=== PATIENT | male | born 1955 | race Caucasian/White ===

== ENCOUNTER → 2018-03-19 17:36 | Outpatient (CLI) | payer MEDICARE | END | disposition home or self-care (01) | LOC: D.LABREF 17:36 | DX: M17.12 Unilateral primary osteoarthritis, left knee (principal); Z11.8 Encounter for screening for other infectious and parasitic diseases ==

== ENCOUNTER 2018-04-02 10:00 | Inpatient (IN) | payer MEDICARE ==
[~2018-04-02] VITALS: Ht 188 cm; Wt 104.3 kg
[2018-04-02] MEDS ORDERED: BENZTROPINE MESY1 MG PO (10:55)
[2018-04-02] MEDS ORDERED: CLOZARIL100 MG PO (10:56)
[2018-04-02] MEDS ORDERED: HYDROCHLOROTH12.5 M1 PO (10:57)
[2018-04-02] MEDS ORDERED: IPRAT-ALBUT 0.5-3 ML UPD (10:57)
[2018-04-02] MEDS ORDERED: FERROUS SULFAT325 MG PO (10:57)
[2018-04-02] MEDS ORDERED: GLUCOPHAGE500 MG PO (10:58)
[2018-04-02] MEDS ORDERED: VYVANSE20 MG PO (10:58)
[2018-04-02] MEDS ORDERED: NEXIUM40 MG (10:58)
[2018-04-02] MEDS ORDERED: ALBUTEROL (11:01)
[2018-04-02] MEDS ORDERED: VOLTAREN75 MG PO (11:01)
[2018-04-02] MEDS ORDERED: ZOCOR40 MG PO (11:02)
[2018-04-02] MEDS ORDERED: BREO ELLIPTA 21 EACH (11:02)
[2018-04-02 11:52] LABS: BASOPHILS 0.2 % (0-2); EOSINOPHILS 0 % (0-7); HEMATOCRIT 46.7 % (42.0-54.0); HEMOGLOBIN 16.1 g/dL (13.5-17.5); IMMATURE GRANULOCYTES 0.1 % (0-5); LYMPHOCYTES 20.3 % (15-50); MCH 30.6 pg (26.0-34.0); MCHC 34.5 g/dL (31.0-37.0); MCV 88.8 fL (80.0-100.0); MEAN PLATELET VOLUME 11.2 fL (7.4-10.4); MONOCYTES 8.8 % (2-11); NEUTROPHILS 70.6 % (40-80); PLATELET COUNT 154 10x3/uL (130-400); RBC 5.26 10x6/uL (4.20-6.10); RDW 13.8 % (11.5-14.5)
[2018-04-02 12:01] LABS: CALC OSMOLALITY 283 mosm/kg (275-300); CALCIUM 9.9 mg/dL (8.5-10.1); CARBON DIOXIDE 27.7 mmol/L (21.0-32.0); CHLORIDE - SERUM 105 mmol/L (98-107); CREATININE - SERUM 0.9 mg/dL (0.6-1.3); GLUCOSE 98 mg/dL (74-106); POTASSIUM - SERUM 4.2 mmol/L (3.5-5.1); SODIUM 142 mmol/L (136-145); UREA NITROGEN 16 mg/dL (7-18); eGFR NON AFRICAN AMERICAN > 90 mL/min (90-120)
[2018-04-02 12:04] LABS: APTT 31.4 SECONDS (22.8-39.4); PROTIME 12.7 SECONDS (11.6-15.0)
[2018-04-02 12:33] LABS: APPEARANCE CLEAR (CLEAR); BILIRUBIN NEGATIVE (NEGATIVE); COLOR YELLOW (YELLOW); GLUCOSE NEGATIVE (NEGATIVE); KETONE NEGATIVE (NEGATIVE); NITRITE NEGATIVE (NEGATIVE); PROTEIN NEGATIVE (NEGATIVE); SPECIFIC GRAVITY 1.005 (1.005-1.020); UROBILINOGEN NORMAL (NORMAL)
[2018-04-07 07:27] VITALS: BP 137/77; BMI 29.7
[2018-04-07 14:13] VITALS: BP 124/79
[2018-04-07 14:32] VITALS: BP 124/79
[2018-04-07 15:39] VITALS: BMI 29.5
[2018-04-07 20:53] VITALS: BP 114/71
[2018-04-07 21:43] VITALS: BP 114/71
[2018-04-08] VITALS (7 sets, daily range): BP systolic 102–133; BP diastolic 55–81
[2018-04-08 06:14] LABS: HEMATOCRIT 39.7 % (42.0-54.0); HEMOGLOBIN 13.5 g/dL (13.5-17.5); MCH 30.3 pg (26.0-34.0); MCV 89.2 fL (80.0-100.0); MEAN PLATELET VOLUME 11.3 fL (7.4-10.4); RBC 4.45 10x6/uL (4.20-6.10); RDW 13.5 % (11.5-14.5); WBC 10.6 10x3/uL (4.8-10.8)
[2018-04-09 04:00] VITALS: BP 123/82
[2018-04-09 04:56] LABS: HEMATOCRIT 37.8 % (42.0-54.0); HEMOGLOBIN 13.1 g/dL (13.5-17.5); MCH 30.5 pg (26.0-34.0); MCHC 34.7 g/dL (31.0-37.0); MCV 87.9 fL (80.0-100.0); MEAN PLATELET VOLUME 11.2 fL (7.4-10.4); RBC 4.3 10x6/uL (4.20-6.10); RDW 13.3 % (11.5-14.5); WBC 13.6 10x3/uL (4.8-10.8)
--- NOTE | 2018-04-09 11:07 | MORECARE ---
CASE MANAGEMENT DISCHARGE SUMMARY PATIENT: AYALA GREENBERG UNIT: [id number] ADM DATE: 04/07/18 AGE: 63 : 55 SEX: M ROOM/BED: D.2212 AUTHOR: SAMM TILLMAN PHYSICIAN: REFERRING PHYSICIAN: PARAS CROOK MD DATE OF SERVICE: 04/09/18 Discharge Plan Patient Name: AYALA GREENBERG [facility] : 1955 Planned Disposition: Inpatient Rehab Anticipated Discharge Date: 04/10/18 Discharge Date: Expected LOS: 3 Initial Reviewer: [email or web address] Initial Review Date: 04/09/2018 Generated: 04/09/18 12:07 pm Patient Name: AYALA GREENBERG Page 33795 at 1107 All edits/amendments must be made on the electronic document DICTATION DATE: 04/09/186 KOSHER DIETARY SERVICE SUPERVISOR: PAIGE 04/09/18 1106 RPT#: [id number] DC DATE: STATUS: ADM IN [facility] [address] [place] [address] END OF REPORT
--- NOTE | 2018-04-09 11:14 | MORECARE ---
CASE MANAGEMENT DISCHARGE SUMMARY PATIENT: AYALA GREENBERG UNIT: [id number] ADM DATE: 04/07/18 AGE: 63 : 55 SEX: M ROOM/BED: D.2212 AUTHOR: PRIMO,DOC PHYSICIAN: REFERRING PHYSICIAN: PARAS CROOK MD DATE OF SERVICE: 04/09/18 Discharge Plan Patient Name: AYALA GREENBERG Facility: [facility]:[place] : 1955 Planned Disposition: Inpatient Rehab Anticipated Discharge Date: 04/10/18 Discharge Date: Expected LOS: 3 Initial Reviewer: [email or web address] Initial Review Date: 04/09/2018 Generated: 04/09/18 12:14 pm Comments DCP- Discharge Planning Updated by [email or web address]: Misa Flores on 04/09/18 10:[address] Patient Name: AYALA GREENBERG Admission Status: Elective Accout number: [id number] Admission Date: 04-07-2018 : 1955 Admission Diagnosis: Attending: PARAS CROOK Current LOS: 2 Anticipated DC Date: 04-10-2018 Planned Disposition: Inpatient Rehab Primary Insurance: MEDICARE A & B Discharge Planning Comments: CM met with patient to discuss discharge planning, he is alone in the room. States he lives at [facility]. States I can call Ira (the nurse) there for more information. Agrees to inpatient rehab down stairs prior to going back to [facility]. I called Ira Thomas at [phone] and left a message on her answering machine to return my call concerning discharge planning. I called Adelita in inpatient rehab and they will review his chart for admission. CM will continue to follow and assist with discharge planning/needs. Sewing Machine Operator Floorperson: Misa Flores DCPIA - Discharge Planning Initial Assessment Updated by [email or web address]: Misa Flores on 04/09/18 11:08 am * Is the patient Alert and Oriented? Yes * How many steps to enter\exit or inside your home? 0/0 * PCP Dr. Caraballo * Pharmacy [facility] in [place] * Preadmission Environment Penitentiary * Facility Name [facility] * ADLs Partial Dependent * Partial ADLs (Assistance needed) Ambulation * Equipment Cane Walker * List name and contact numbers for known caregivers / representatives who currently or will assist patient after discharge: Ira Thomas - nurse at [facility] - [phone] * Verbal permission to speak to the caregivers and representatives has been obtained from the patient. Yes * Community resources currently utilized None * Please name any agencies selected above. [facility] * Additional services required to return to the preadmission environment? Yes * Can the patient safely return to the preadmission environment? Yes * Has this patient been hospitalized within the prior 30 days at any hospital? No Last DP export: 04/09/18 10:07 am Patient Name: AYALA GREENBERG Page 21281 at 1114 All edits/amendments must be made on the electronic document DICTATION DATE: 04/09/181113 AIRPORT MAINTENANCE CHIEF: PAIGE 04/09/181113 RPT#: [id number] DC DATE: STATUS: ADM IN [facility] [address] [place] [address] END OF REPORT
--- NOTE | 2018-04-09 11:51 | MORECARE ---
CASE MANAGEMENT DISCHARGE SUMMARY PATIENT: AYALA GREENBERG UNIT: [id number] ADM DATE: 04/07/18 AGE: 63 : 55 SEX: M ROOM/BED: D.2212 AUTHOR: PRIMO,DOC PHYSICIAN: REFERRING PHYSICIAN: PARAS CROOK MD DATE OF SERVICE: 04/09/18 Discharge Plan Patient Name: AYALA GREENBERG Facility: [facility]:[place] : 1955 Planned Disposition: Inpatient Rehab Anticipated Discharge Date: 04/10/18 Discharge Date: Expected LOS: 3 Initial Reviewer: [email or web address] Initial Review Date: 04/09/2018 Generated: 04/09/18 12:51 pm Comments DCP- Discharge Planning Updated by [email or web address]: Misa Flores on 04/09/18 10:[address] Ira Thomas returned my call from [facility]. She states he lives with 14 other males in a senior care on [facility]. States there are not any medical assistants in the home. States he has a cane, no walker at home. States they use [employer] for their preferred DME company. She would like him to go to inpatient rehab prior to returning to [facility]. Spoke with Adelita and they will follow with his progress. Ira Thomas - cell phone: [phone] DCP- Discharge Planning Updated by [email or web address]: Misa Flores on 04/09/18 10:[address] Patient Name: AYALA GREENBERG Admission Status: Elective Accout number: [id number] Admission Date: 04-07-2018 : 1955 Admission Diagnosis: Attending: PARAS CROOK Current LOS: 2 Anticipated DC Date: 04-10-2018 Planned Disposition: Inpatient Rehab Primary Insurance: MEDICARE A & B Discharge Planning Comments: CM met with patient to discuss discharge planning, he is alone in the room. States he lives at [facility]. States I can call Ira (the nurse) there for more information. Agrees to inpatient rehab down stairs prior to going back to [facility]. I called Ira Thomas at [phone] and left a message on her answering machine to return my call concerning discharge planning. I called Adelita in inpatient rehab and they will review his chart for admission. CM will continue to follow and assist with discharge planning/needs. Training Consultant: Misa Flores DCPIA - Discharge Planning Initial Assessment Updated by [email or web address]: Misa Sandra on 04/09/18 11:08 am * Is the patient Alert and Oriented? Yes * How many steps to enter\exit or inside your home? 0/0 * PCP Dr. Caraballo * Pharmacy [facility] in [place] * Preadmission Environment Care Home * Facility Name [facility] * ADLs Partial Dependent * Partial ADLs (Assistance needed) Ambulation * Equipment Cane Walker * List name and contact numbers for known caregivers / representatives who currently or will assist patient after discharge: Ira Thomas - nurse at [facility] - [phone] * Verbal permission to speak to the caregivers and representatives has been obtained from the patient. Yes * Community resources currently utilized None * Please name any agencies selected above. [facility] * Additional services required to return to the preadmission environment? Yes * Can the patient safely return to the preadmission environment? Yes * Has this patient been hospitalized within the prior 30 days at any hospital? No Last DP export: 04/09/18 10:14 am Patient Name: AYALA GREENBERG Page 13148 at 1151 All edits/amendments must be made on the electronic document DICTATION DATE: 04/09/18 115 FUSING MACHINE TENDER: PAIGE 04/09/18 1150 RPT#: [id number] SC DATE: STATUS: ADM IN [facility] [address] [place] [address] END OF REPORT
[2018-04-09 14:30] VITALS: Ht 188 cm; Wt 104.3 kg
[2018-04-09 15:15] VITALS: BP 129/79
[2018-04-09 16:41] VITALS: BP 132/83
[2018-04-09 20:00] VITALS: BP 127/79
[2018-04-09 23:47] VITALS: BP 128/73
[2018-04-10 04:00] VITALS: BP 134/85
[2018-04-10 08:36] LABS: HEMATOCRIT 31.6 % (42.0-54.0); HEMOGLOBIN 10.8 g/dL (13.5-17.5); MCH 30.1 pg (26.0-34.0); MCHC 34.2 g/dL (31.0-37.0); MEAN PLATELET VOLUME 10.8 fL (7.4-10.4); RBC 3.59 10x6/uL (4.20-6.10); RDW 13.1 % (11.5-14.5); WBC 11.1 10x3/uL (4.8-10.8)
[2018-04-10 08:37] VITALS: BP 150/85
[2018-04-10 08:38] LABS: CALC OSMOLALITY 284 mosm/kg (275-300); CALCIUM 8.8 mg/dL (8.5-10.1); CARBON DIOXIDE 29.4 mmol/L (21.0-32.0); CHLORIDE - SERUM 103 mmol/L (98-107); CREATININE - SERUM 0.9 mg/dL (0.6-1.3); GLUCOSE 137 mg/dL (74-106); POTASSIUM - SERUM 3.1 mmol/L (3.5-5.1); SODIUM 140 mmol/L (136-145); UREA NITROGEN 24 mg/dL (7-18); eGFR NON AFRICAN AMERICAN > 90 mL/min (90-120)
[2018-04-10 12:26] VITALS: BP 150/92
[2018-04-10 17:21] VITALS: BP 147/89
[2018-04-10 20:00] VITALS: BP 148/91
[2018-04-11 04:00] VITALS: BP 132/81
[2018-04-11 08:00] VITALS: BP 135/79
[2018-04-11 12:00] VITALS: BP 149/86
[2018-04-11 16:12] VITALS: BP 159/98
[2018-04-11 19:00] VITALS: BP 156/90
[2018-04-12 00:46] VITALS: BP 156/93
[2018-04-12 05:24] VITALS: BP 165/88
[2018-04-12 09:53] VITALS: BP 160/98
[2018-04-12 16:00] VITALS: BP 150/91
[2018-04-12 20:42] VITALS: BP 147/90
[2018-04-13 04:32] VITALS: BP 157/83
[2018-04-13 08:48] VITALS: BP 152/796
--- NOTE | 2018-04-13 13:33 | OP ---
PATIENT NAME: AYALA GREENBERG MEDICAL RECORD: [id number] :55 LOCATION:D.MS [id number] ADMISSION DATE:04/07/18 SURGEON: PARAS CROOK MD DATE OF OPERATION: 04/07/2018 PREOPERATIVE DIAGNOSIS: Severe varus arthritis of the left knee. POSTOPERATIVE DIAGNOSIS: Severe varus arthritis of the left knee. PROCEDURE: Left total knee arthroplasty. SURGEON: Paras Crook MD MERCHANDISE ADJUSTMENT CLERK: Ryan Menezes APN. INTRAOPERATIVE COMPLICATIONS: None. SUMMARY OF PATHOLOGIC FINDINGS: The patient had such severe medial tibial plateau erosion, it required a step cut with a total stabilizing implant for stability. IMPLANTS USED: Alicia triathlon total knee arthroplasty with a posterior cruciate sacrificing femoral component, size 5; polyethylene component, size 11 with a TS insert rather than the usual PS insert; tibial baseplate with a 10-mm medial augmentation wedge and 50 mm cemented stem on the universal system. OPERATIVE SUMMARY IN DETAIL: After obtaining the appropriate preoperative orthopedic surgery consent as well as anesthetic consultation, evaluation, and clearance, the patient was brought to the operating room and placed on the operating table in supine position. After adequate general laryngeal mask airway was administered, tourniquet was placed on the proximal aspect of left lower extremity. After the knee was prepped and draped in routine sterile fashion, the leg was elevated and exsanguinated, tourniquet was inflated to 350 mmHg. Routine midline incision was taken down to the level of the patella. Paramedian arthrotomy was performed, patella was everted, distal femur was exposed. After distal femoral exposure and the usual osteophyte removal were used, findings of the severe medial tibial plateau erosion were noted. Intramedullary guide hole was created for intramedullary guided cuts for the proximal femur. The proximal femur and distal femoral cuts were created. At this point, the proximal tibia was exposed in its entirety. Soft tissue excision was done in the usual fashion followed by intramedullary guide hole. The intramedullary guide hole was used to cut the proximal tibia. Essentially, the erosion of the medial aspect was ignored and the tibial cut was more proximal than the erosion, obviously needing for a step cut for augmentation. This was not done at this time. The appropriate chamfer cuts for the distal femur were then followed by cutting of the box for the posterior cruciate sacrificing implant. At this point, trials were put into place. Again before the step cut was made, trials were put into place. Soft tissue releases were done on the medial side as the gap obstetrics gyn was used. The gap obstetrics gyn did help guide soft tissue release in this patient with very severe varus deformity. Once it was felt that the appropriate releases had been made and the trials were put into place, the tibia was marked at the appropriate place and likewise prepared for final implantation. Having completed this, the cutting guide was put into place and a 10-mm step cut was made on the medial aspect of the tibia. Again, the trials were taken through range of motion. Final trials were then OPERATIVE REPORT [id number] AYALA GREENBERG assembled that being the 50-mm stem augment as well as the 10-mm augment on the medial aspect of the tibial plateau. It did appeared to be balanced with the 11-mm insert put into place. It was ranged several times from both flexion and extension and found to be very stable. At this point, the trial components were taken out and the very arthritic patella was excised. The patient had a very large patella after osteophytes were taken down. A size 39 was utilized. Final patellar preparations were then made. This was followed by substantial irrigation using the pulsatile lavage. The final components were assembled on the back table and then cemented into place with good fit, fill, and all residual cement was removed. At this point, the knee was put into extension and held with a valgus load to allow good fixation of the medial aspect. Once the cement had hardened, the knee was taken through range of motion and found to be stable in all planes with good patellar tracking. At this point, Theo Menezes stepped in and closed the paramedian arthrotomy with #2 Ethibond. This was followed by #1 Vicryl, 2-0 Vicryl and skin rafi. Sterile dressings were applied. Tourniquet was deflated. The patient was given a gram of TXA. He was then awakened, taken to recovery room in stable condition. All final needle and sponge counts were correct. TRANSINT:[id number] Voice Confirmation ID: [id number] DOCUMENT ID: [id number] ARMAAN ZELAYA, PARAS NELSON at 1333 CC: [id number] DICTATION DATE: 04/11/18 1148 HVAC R INSTRUCTOR: 04/11/18 1209 ADM IN [facility] [address] [id number]
[2018-04-13 20:45] VITALS: BP 149/83
[2018-04-14 00:27] VITALS: BP 186/96
[2018-04-14 04:41] VITALS: BP 180/60
[2018-04-14 08:49] VITALS: BP 148/56
[2018-04-14] MEDS ORDERED: Nicoderm [PBKC] TRANSDERM (14:10)
[2018-04-14] MEDS ORDERED: ELIQUIS2.5 MG PO (14:10)
[2018-04-14] MEDS ORDERED: Percocet-10 PO (14:11)
--- NOTE | 2018-04-14 14:11 | MORECARE ---
CASE MANAGEMENT DISCHARGE SUMMARY PATIENT: AYALA GREENBERG UNIT: [id number] ADM DATE: 04/07/18 AGE: 63 : 55 SEX: M ROOM/BED: D.2212 AUTHOR: PRIMO,DOC PHYSICIAN: REFERRING PHYSICIAN: PARAS CROOK MD DATE OF SERVICE: 04/14/18 Discharge Plan Patient Name: AYALA GREENBERG Facility: [facility]:[place] : 1955 Planned Disposition: Inpatient Rehab Anticipated Discharge Date: 04/10/18 Discharge Date: Expected LOS: 3 Initial Reviewer: [email or web address] Initial Review Date: 04/09/2018 Generated: 04/14/18 3:11 pm Comments DCP- Discharge Planning Updated by [email or web address]: Violeta Mendoza on 04/14/18 1:[address] PATIENT WILL BE DISCHARGING TO INPATIENT REHAB TODAY, IMM SERVED AND EXPLAINED. I ATTEMPTED TO CALL Annalise THOMAS TO LET HER KNOW PER PATIENTS REQUEST DID NOT GET AN ANSWER. CM TO FOLLOW AND ASSIST WITH DC PLANNING NEEDED DCP- Discharge Planning Updated by [email or web address]: Misa Flores on 04/09/18 10:[address] Ira Thomas returned my call from [facility]. She states he lives with 14 other males in a care home on [facility]. States there are not any medical assistants in the home. States he has a cane, no walker at home. States they use [employer] for their preferred DME company. She would like him to go to inpatient rehab prior to returning to small care home. Spoke with Adelita and they will follow with his progress. Ira Thomas - cell phone: [phone] DCP- Discharge Planning Updated by [email or web address]: Misa Flores on 04/09/18 10:[address] Patient Name: AYALA GREENBERG Admission Status: Elective Accout number: [id number] Admission Date: 04-07-2018 : 1955 Admission Diagnosis: Attending: PARAS CROOK Current LOS: 2 Anticipated DC Date: 04-10-2018 Planned Disposition: Inpatient Rehab Primary Insurance: MEDICARE A & B Discharge Planning Comments: CM met with patient to discuss discharge planning, he is alone in the room. States he lives at [facility]. States I can call Ira (the nurse) there for more information. Agrees to inpatient rehab down stairs [facility] I called Ira Thomas at [phone] and left a message on her answering machine to return my call concerning discharge planning. I called Adelita in inpatient rehab and they will review his chart for admission. CM will continue to follow and assist with discharge planning/needs. Log Yard Derrick Operator: Misa Flores DCPIA - Discharge Planning Initial Assessment Updated by [email or web address]: Misa Flores on 04/09/18 11:08 am * Is the patient Alert and Oriented? Yes * How many steps to enter\exit or inside your home? 0/0 * PCP Dr. Caraballo * Pharmacy [facility] in [place] * Preadmission Environment Jail * Facility Name [facility] * ADLs Partial Dependent * Partial ADLs (Assistance needed) Ambulation * Equipment Cane Walker * List name and contact numbers for known caregivers / representatives who currently or will assist patient after discharge: Ira Thomas - nurse at [facility] - [phone] * Verbal permission to speak to the caregivers and representatives has been obtained from the patient. Yes * Community resources currently utilized None * Please name any agencies selected above. [facility] * Additional services required to return to the preadmission environment? Yes * Can the patient safely return to the preadmission environment? Yes * Has this patient been hospitalized within the prior 30 days at any hospital? No Coverage Notice Reviewer: [id number] Betzy Mendoza Notice Issued Date-Time: 04/14/2018 14:00 Notice Type: IM Discharge Notice Notice Delivered To: Patient Relationship to Patient: Apartment Locator Name: Delivery Method: HAND - Hand Delivered Jes Days: Prior Verbal Notification: Recipient Understood Notice: Yes Recipient Signature: Yes Med Rec Note Co-signed by Attending: Coverage Notice Comment: Last DP export: 04/09/18 10:51 am Patient Name: AYALA GREENBERG Page [id number] at 1411 All edits/amendments must be made on the electronic document DICTATION DATE: 04/14/18 1411 MANAGER SUPPLY: PAIGE 04/14/18 1411 RPT#: [id number] DC DATE: STATUS: ADM IN [facility] [address] [place] [address] END OF REPORT
== END 2018-04-14 16:21 | DRG 470 ==
LOC: D.SDCHOLD 10:00 → D.MS 04-07 07:10 → D.SDCHOLD 04-07 08:30 → D.MS 04-07 13:46
PROVIDERS: ADMIT Orthopaedic Surgery
PROC: 0SRD0JZ Replacement of Left Knee Joint with Synthetic Substitute, Open Approach (ICD-10-PCS; principal; 2018-04-07 08:30)
DX: M17.12 Unilateral primary osteoarthritis, left knee (principal); K56.7 Ileus, unspecified; E11.9 Type 2 diabetes mellitus without complications; I10 Essential (primary) hypertension; J44.9 Chronic obstructive pulmonary disease, unspecified

== ENCOUNTER 2018-04-14 16:41 | Inpatient (IN) | payer MEDICARE ==
[~2018-04-14] VITALS: Ht 188 cm; Wt 104.3 kg
[~2018-04-14 16:41] MED LIST: ALBUTEROL; BENZTROPINE MESY1 MG PO; BREO ELLIPTA 21 EACH; CLOZARIL100 MG PO; ELIQUIS2.5 MG PO; FERROUS SULFAT325 MG PO; GLUCOPHAGE500 MG PO; HYDROCHLOROTH12.5 M1 PO; IPRAT-ALBUT 0.5-3 ML UPD; NEXIUM40 MG; Nicoderm [PBKC] TRANSDERM; Percocet-10 PO; VOLTAREN75 MG PO; VYVANSE20 MG PO; ZOCOR40 MG PO
[2018-04-14 16:47] VITALS: BP 155/92
[2018-04-14 19:00] VITALS: BP 155/92
--- NOTE | 2018-04-14 19:40 | NUR ---
GREETED PATIENT AND INTRODUCED MYSELF HIS NURSE FOR THE EVENING. PATIENT IS LAYING IN BED. MODERATELY CONFUSED TO WHERE HE IS. STATES PAIN 5/10 ON 0-10 PAIN SCALE LEFT KNEE. CALL LIGHT IN REACH.
--- NOTE | 2018-04-15 00:14 | NUR ---
PATIENT ASLEEP WITH EYES CLOSED LAYING IN SUPINE POSITION. HOB AT 30 DEGREES. LEFT LEG ELEVATED ON PILLOW FOR COMFORT. RESPIRATIONS EVEN. NO SIGNS OF DISTRESS. CALL LIGHT IN REACH. BED IN LOWEST POSITION.
--- NOTE | 2018-04-15 01:30 | NUR ---
PATIENT IS REQUESTING MEDICATION TO SLEEP. CHECKED PATIENTS MAR AND NO SLEEP AID HAS BEEN PRESCRIBED. MADE NOTE TO DR. ROCKWELL.
--- NOTE | 2018-04-15 02:30 | NUR ---
PATIENT ASLEEP WITH EYES CLOSED LAYING IN SUPINE POSITION. HOB AT 30 DEGREES. RESPIRATIONS EVEN. NO SIGNS OF DISTRESS. CALL LIGHT IN REACH. BED IN LOWEST POSITION.
[2018-04-15 07:24] LABS: BASOPHILS 0.1 % (0-2); EOSINOPHILS 0 % (0-7); HEMATOCRIT 29.1 % (42.0-54.0); HEMOGLOBIN 10.1 g/dL (13.5-17.5); IMMATURE GRANULOCYTES 0.6 % (0-5); LYMPHOCYTES 19.7 % (15-50); MCH 29.7 pg (26.0-34.0); MCHC 34.7 g/dL (31.0-37.0); MCV 85.6 fL (80.0-100.0); MEAN PLATELET VOLUME 10.6 fL (7.4-10.4); MONOCYTES 9.3 % (2-11); NEUTROPHILS 70.3 % (40-80); RDW 13.4 % (11.5-14.5); WBC 8.5 10x3/uL (4.8-10.8)
--- NOTE | 2018-04-15 07:27 | NUR ---
SLEEPING.RESPS EASY AND REGULAR.CL IN REACH.
[2018-04-15 07:29] LABS: CALC OSMOLALITY 275 mosm/kg (275-300); CALCIUM 8.3 mg/dL (8.5-10.1); CARBON DIOXIDE 24.7 mmol/L (21.0-32.0); CHLORIDE - SERUM 103 mmol/L (98-107); CREATININE - SERUM 0.7 mg/dL (0.6-1.3); GLUCOSE 127 mg/dL (74-106); SODIUM 137 mmol/L (136-145); UREA NITROGEN 13 mg/dL (7-18); eGFR NON AFRICAN AMERICAN > 90 mL/min (90-120)
[2018-04-15 07:31] LABS: PLATELET COUNT 263 10x3/uL (130-400)
[2018-04-15 07:38] LABS: POTASSIUM - SERUM 2.9 mmol/L (3.5-5.1)
[2018-04-15 08:00] VITALS: BP 130/80
--- NOTE | 2018-04-15 08:01 | NUR ---
PT RESTING IN BED WITH EYES OPEN EATING BREAKFAST TOLERATING WELL WILL MONITER
--- NOTE | 2018-04-15 10:37 | NUR ---
PATIENT ADMITTED TO REHAB FROM ACUTE FLOOR. DR. KINGSTON IS HIS PCP. DME AT HOME IS A CANE, [facility] IS HIS DME PREFERENCE. DISCHARGE PLANS ARE FOR PATIENT TO RETURN TO HIS SMALL INTER[facility] AT DISCHARGE. RAMIRO DALTON IS HIS HOME NURSE( [phone]) WILL CONTINUE TO FOLLOW WITH PATIENT.
[2018-04-15 13:32] VITALS: Ht 188 cm; Wt 104.3 kg
--- NOTE | 2018-04-15 18:37 | NUR ---
PT RESTING IN BED WITH EYES OPEN CALL LIGHT IN REACH WILL MONITER
--- NOTE | 2018-04-15 18:58 | NUR ---
PATIENT IS RESTING IN CHAIR AT BEDSIDE. HE DENIES ANY NEEDS. CALL LIGHT IS IN REACH.
[2018-04-15 19:00] VITALS: BP 146/88
--- NOTE | 2018-04-15 20:56 | NUR ---
PATIENT IS RESTING IN BED. HE DENIES ANY NEEDS. BED IS DOWN LOW WITH SIDE RAILS UP X2. CALL LIGHT IS IN REACH.
--- NOTE | 2018-04-16 00:02 | NUR ---
PATIENT IS SLEEPING. BED IS DOWN LOW WITH SIDE RAILS UP X2. CALL LIGHT IS IN REACH.
--- NOTE | 2018-04-16 04:02 | NUR ---
PATIENT IS SLEEPING. BED IS DOWN LOW WITH SIDE RAILS UP X2. BED ALARM ACTIVATED. CALL LIGHT IN REACH.
--- NOTE | 2018-04-16 07:45 | NUR ---
AWAKE AND ALERT. EATING BREAKFAST. NO C/O PAIN.
[2018-04-16 08:19] LABS: CALC OSMOLALITY 281 mosm/kg (275-300); CALCIUM 8.8 mg/dL (8.5-10.1); CARBON DIOXIDE 26.4 mmol/L (21.0-32.0); CHLORIDE - SERUM 105 mmol/L (98-107); CREATININE - SERUM 0.7 mg/dL (0.6-1.3); GLUCOSE 122 mg/dL (74-106); SODIUM 141 mmol/L (136-145); UREA NITROGEN 13 mg/dL (7-18); eGFR NON AFRICAN AMERICAN > 90 mL/min (90-120)
[2018-04-16 08:24] LABS: BASOPHILS 0.1 % (0-2); EOSINOPHILS 0 % (0-7); HEMATOCRIT 29.1 % (42.0-54.0); IMMATURE GRANULOCYTES 0.9 % (0-5); LYMPHOCYTES 23.5 % (15-50); MCH 29.5 pg (26.0-34.0); MCHC 34.4 g/dL (31.0-37.0); MCV 85.8 fL (80.0-100.0); MEAN PLATELET VOLUME 10.6 fL (7.4-10.4); MONOCYTES 8.4 % (2-11); NEUTROPHILS 67.1 % (40-80); PLATELET COUNT 281 10x3/uL (130-400); RBC 3.39 10x6/uL (4.20-6.10); RDW 13.6 % (11.5-14.5); WBC 6.9 10x3/uL (4.8-10.8)
[2018-04-16 08:27] LABS: POTASSIUM - SERUM 2.8 mmol/L (3.5-5.1)
[2018-04-16 09:08] VITALS: BP 120/67
--- NOTE | 2018-04-16 11:36 | NUR ---
MED LATE. WAS UNAVAILABLE FROM PHARMACY. WAS REQUESTED X 2.
--- NOTE | 2018-04-16 12:49 | NUR ---
PARTICIPATED IN THERAPY THIS AM.
--- NOTE | 2018-04-16 14:12 | NUR ---
REQUESTED HALDOL DECANOTE FROM PHARMACY. NONE IN PYXIS.
--- NOTE | 2018-04-16 16:20 | NUR ---
SITTING IN RECLINER IN ROOM. NO DISTRESS NOTED. NO CHANGE IN ASSESSMENT.
[2018-04-16 19:00] VITALS: BP 121/74
--- NOTE | 2018-04-16 19:00 | NUR ---
PT UP IN CHAIR NO IMMEDIATE NEEDS NOTED FLUIDS AND CALL LIGHT WITHIN REACH
--- NOTE | 2018-04-16 19:53 | RHP ---
PATIENT: AYALA GREENBERG MEDICAL RECORD: [id number] ACCOUNT: [id number] LOCATION:[facility]1110 : 55 ADMISSION DATE: 04/14/18 REHABILITATION HISTORY AND PHYSICAL EXAMINATION POST ADMISSION PHYSICIAN EXAMINATION DATE OF ADMISSION: 04/14/2018 ADMITTING DIAGNOSES: Severe osteoarthritis, status post unilateral knee replacement. HISTORY OF PRESENT ILLNESS: The patient was admitted to the inpatient rehab with a left total knee due to severe osteoarthritis, postop complications including postoperative ileus, leukocytosis, elevated temperature, blood loss anemia, hypertension and the patient is noted to have a high fall risk and self-care deficit. The patient is a 63-year-old gentleman with severe osteoarthritis of left knee requiring a total knee. He has got a past medical history for diabetes, hypertension, and COPD. Since surgery, he has had some nausea. He has had a general surgery consult, which has seen him during his acute hospital stay. He has been attempting to eat a regular diet and not tolerating well. KUB showed a postop ileus. He has been progressing slowly with PT. He is actually n.p.o., but his diet will be advanced depending on his bowel regimen. He has had a bowel movement, is tolerating some diet advancements at time. He refuses MiraLax, milk of mag, secondary to having diarrhea and now appears that his ileus is resolving. He lives in a small group living at home due to schizophrenia, was independent with ADLs and moderately independent with use of a single point cane for mobility due to severity of his osteoarthritis in his knee. 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 Comorbidities in this patient include diarrhea, self-care deficit, impaired mobility, hypertension, diabetes mellitus, COPD, postop ileus, elevated temperature, osteoarthritis and nausea and vomiting. PAST MEDICAL HISTORY: Significant for weakness, glasses, diabetes, hypertension, COPD, asthma, history of acid reflux, arthritis, elevated PSA, and schizophrenia. PAST SURGICAL HISTORY: Includes knee surgery. He has also had tonsillectomy and adenoidectomy. ALLERGIES: PENICILLIN. CURRENT MEDICATIONS: He is on Nicoderm patch; he is on hydrochlorothiazide 12.5 mg daily; Breo daily; ferrous sulfate 300 mg daily; Protonix 400 mg daily; Clozaril 100 mg daily, he takes that at bedtime; Zocor 40 mg at bedtime; albuterol 2 puffs every 4 hours p.r.n.; Percocet 10/325 one tab every 4 hours p.r.n.; Glucophage 500 mg b.i.d. with meals; Voltaren 75 mg b.i.d.; Cogentin 1 mg b.i.d.; Eliquis 2.5 mg b.i.d.; and polyethylene glycol 17 g in 8 ounces of water daily. HABITS: No current alcohol use. Does smoke. FAMILY HISTORY: Noncontributory. HISTORY AND PHYSICAL [id number] AYALA GREENBERG SOCIAL HISTORY: The patient hopes to return back home and get back to his prior level of functioning. REVIEW OF SYSTEMS: GENERAL: Denies weakness or fatigue. HEENT: Denies cold, cough, or congestion. CARDIOVASCULAR: Denies chest pain. PHYSICAL EXAMINATION: VITAL SIGNS: Stable, afebrile. GENERAL: An obese gentleman in no acute distress, alert upon exam. HEENT: Normocephalic and atraumatic. Mucosa moist. NECK: Supple. No lymphadenopathy. LUNGS: Clear at this time. HEART: Regular rate and rhythm. ABDOMEN: Benign. EXTREMITIES: Postop swelling appears normal. NEUROLOGIC: Seems mainly intact. LABORATORY DATA: His white count is 8.5, H&H 10 and 29, and platelet count was 263. His sodium is 137, potassium is 2.9, BUN and creatinine of 13 and 0.7, blood sugar is noted to be 127. ASSESSMENT: This is a 63-year-old gentleman admitted to the rehab with a working diagnosis of status post left total knee replacement secondary to severe osteoarthritis. The patient has potential to make improvement. We instituted the following multidisciplinary therapies include, but not limited to physical, occupational, respiratory, speech, nutritional services, prosthetics and orthotics. Given his complex medical condition and risk for more complications, rehabilitation services cannot be provided at a low level of care such as skilled nurse facility. PLAN: 1. Admit to [facility] for intensive inpatient therapy to include the following disciplines: A. Physical therapy to improve gait, all transfer skills and bed mobility to a modified independent level. B. Occupational therapy to a modified independent level. C. Case management to assist with discharge planning and placement options. D. Nutrition to assist with nutritional needs. E. Rehabilitation nursing to assist in monitoring the patient's underlying medical conditions and to assist with any type of bowel or bladder management. 2. The patient's current medication and medical care will be continued. 3. The patient will be placed on standard fall precautions. 4. The patient's estimated length of stay is approximately 7-10 days. 5. I am going to go ahead and replace his potassium. I am going to follow up in the a.m. We will repeat those labs and discuss with care team and case management tomorrow. TRANSINT:[id number] Voice Confirmation ID: [id number] DOCUMENT ID: [id number] RASHEED notes whether there has been none or any medical/functional change since admission: - No change since the PAS HISTORY AND PHYSICAL [id number] AYALA GREENBERG attests patient continues to be appropriate for IRF: - Remains appropriate for the [facility] LAURIE ROCKWELL MD at 1953 CC: [id number] DICTATION DATE: 04/15/18924 PUPPET MAKER: 04/15/18 1107 ADM IN [facility] [address] [id number]
--- NOTE | 2018-04-17 00:05 | NUR ---
PT ASLEEP NO NEEDS NOTED AT THIS TIME, FLUIDS AND CALL LIGHT WITHIN REACH
--- NOTE | 2018-04-17 03:11 | NUR ---
LFT KNEE AQUCELL DRSG SOILED, 7TH STAPLE FROM BOTTOM HAS FRESH BLOOD SEEPING, AT APPROXIMATELY THE 11TH STAPLE FROM THE BOTTOM THE AREA IS REDDENED FROM THAT POINT TO THE LAST STAPLE, THE AREA HAS NOTED WARMTH AND IS DEEP DARK RED, PT DOES NOT HAVE AN ELEVATED TEMP, WILL PASS ON IN REPORT CHECK LAB VALUES IN AM, AND INFORM DRMonica OF FINDINGS, PT DOES NOT C/O PAIN, FLUIDS AND CALL LIGHT WITHIN REACH
--- NOTE | 2018-04-17 04:18 | NUR ---
PT ASLEEP NO NEEDS NOTED FLUIDS AND CALL LIGHT WITHIN REACH
--- NOTE | 2018-04-17 07:20 | NUR ---
PHYSICAL THERAPY GOT PT UP AND IS EATING BREAKFAST IN GYM. PT DENIES NEEDS OR PAIN. RESP EVEN AND UNLABORED. WILL CONTINUE TO MONITOR.
[2018-04-17 08:00] VITALS: BP 132/84
--- NOTE | 2018-04-17 10:20 | NUR ---
PT IN ROOM SITTING UP IN WHEELCHAIR. CL IN REACH. PT DENIES NEEDS OR PAIN.
--- NOTE | 2018-04-17 13:06 | NUR ---
Nutrition Follow Up: Chart reviewed Diet: Regular; Ensure TID PO Intake: 75% meal avg BM: 04/16/18 Meds and labs reviewed Rec continue current diet, supplement regimen. RD following.
--- NOTE | 2018-04-17 15:49 | NUR ---
PT SITTING UP IN CHAIR. CL IN REACH. PT DENIES NEEDS OR PAIN. PT DENIES NEEDS OR PAIN. RESP EVEN AND UNLABORED. WCTM
--- NOTE | 2018-04-17 18:38 | NUR ---
PT SITTING UP IN WHEELCHAIR.CL IN REACH. PT DENIES NEEDS OR PAIN. ASSISTED PT WALKING WITH WALKER TO WASH FACE OFF WITH WATER.
[2018-04-17 19:00] VITALS: BP 131/84
--- NOTE | 2018-04-17 19:46 | NUR ---
PT WATCHING TV NO NEEDS NOTED FLUIDS AND CALL LIGHT WITHIN REACH
--- NOTE | 2018-04-18 01:45 | NUR ---
PT SPILLED URINAL IN BED AND ON BEDSIDE TABLE, CLEANED UP DRIED, SANITIZED AND CHANGED, FLUIDS AND CALL LIGHT WITHIN REACH
[2018-04-18 07:45] LABS: BASOPHILS 0.1 % (0-2); EOSINOPHILS 0 % (0-7); HEMATOCRIT 30.5 % (42.0-54.0); HEMOGLOBIN 10.2 g/dL (13.5-17.5); LYMPHOCYTES 21.7 % (15-50); MCH 29.4 pg (26.0-34.0); MCHC 33.4 g/dL (31.0-37.0); MCV 87.9 fL (80.0-100.0); MEAN PLATELET VOLUME 9.9 fL (7.4-10.4); MONOCYTES 9.3 % (2-11); NEUTROPHILS 67.9 % (40-80); PLATELET COUNT 282 10x3/uL (130-400); RBC 3.47 10x6/uL (4.20-6.10); RDW 14.1 % (11.5-14.5); WBC 7.6 10x3/uL (4.8-10.8)
[2018-04-18 07:49] LABS: CALC OSMOLALITY 284 mosm/kg (275-300); CALCIUM 8.8 mg/dL (8.5-10.1); CARBON DIOXIDE 29.5 mmol/L (21.0-32.0); CHLORIDE - SERUM 106 mmol/L (98-107); CREATININE - SERUM 0.8 mg/dL (0.6-1.3); GLUCOSE 128 mg/dL (74-106); SODIUM 141 mmol/L (136-145); UREA NITROGEN 17 mg/dL (7-18); eGFR NON AFRICAN AMERICAN > 90 mL/min (90-120)
--- NOTE | 2018-04-18 08:00 | NUR ---
PT EATING BREAKFAST IN THERAPY GYM WITH PT. PT DENIES NEEDS. WCTM.
--- NOTE | 2018-04-18 09:15 | NUR ---
PT AM MEDS ADMINISTERED. PT DENIES NEEDS. WCTM.
[2018-04-18 11:17] VITALS: BP 137/82
--- NOTE | 2018-04-18 14:30 | NUR ---
PT SPILLED URINAL. ASSISTED PT TO CHANGE CLOTHES. PT SITTING UP IN WHEELCHAIR AND DENIES FURTHER NEEDS. WCTM.
[2018-04-18 19:56] VITALS: BP 133/83
--- NOTE | 2018-04-19 00:29 | NUR ---
PATIENT EYES CLOSED. RESPIRATIONS 18 & EVEN. PATIENT BED LOW. CALL LIGHT WITHIN REACH. WILL CONTINUE TO MONITOR.
--- NOTE | 2018-04-19 05:49 | NUR ---
PT ASLEEP NO NEEDS NOTED FLUIDS AND CALL LIGHT WITHIN REACH
[2018-04-19 08:07] VITALS: BP 131/72
--- NOTE | 2018-04-19 08:15 | NUR ---
PT RESTING IN BED WITH EYES OPEN CALL LIGHT IN REACH NO PROBLEMS WILL MONITER
--- NOTE | 2018-04-19 10:31 | NUR ---
JUST FINISHED THERAPY.SITTING UP IN RECLINER.CL IN REACH.
[2018-04-19 19:12] VITALS: BP 126/72
--- NOTE | 2018-04-19 19:45 | NUR ---
AWAKE AND ALERT SITTING IN CHAIR IN ROOM. RESPIRATIONS UNLABORED. NO DISTRESS NOTED.
--- NOTE | 2018-04-20 00:57 | NUR ---
RESTING IN BED WITH EYES CLOSED. RESPIRATIONS UNLABORED. NO DISTRESS NOTED.
--- NOTE | 2018-04-20 03:31 | NUR ---
CONTINUES RESTING WITH EYES CLOSED. RESPIRATIONS UNLABORED. NO CHANGE IN CONDITION NOTED.
--- NOTE | 2018-04-20 06:17 | NUR ---
RESTING IN BED. QUIET HOURS. NO DISTRESS NOTED.
--- NOTE | 2018-04-20 11:44 | NUR ---
SLEPT ALL MORNING. HAD TO BE AWAKENED FOR BREAKFAST AND MED PASSES. ATE 100% OF BREAKFAST. NO COMPLAINTS AT THIS TIME. WILL CONTINUE TO MONITOR.
[2018-04-20 11:53] VITALS: BP 136/79
--- NOTE | 2018-04-20 16:52 | NUR ---
SITTING UP IN RECLINER CHAIR THIS AFTERNOON WATCHING TV. NO COMPLAINTS AT THIS TIME. VOIDED 800 CC OF IRIS COLORED URINE IN URINAL. WILL CONINTUE TO MONITOR.
[2018-04-20 19:05] VITALS: BP 110/74
--- NOTE | 2018-04-20 19:28 | NUR ---
AWAKE AND ALERT SITTING IN CHAIR. RESPIRATIONS UNLABORED. NO CURRENT C/O PAIN. NO NEEDS VOICED.
--- NOTE | 2018-04-21 01:18 | NUR ---
RESTING IN BED WITH NO DISTRESS NOTED. RESPIRATIONS UNLABORED.
[2018-04-21 07:32] LABS: BASOPHILS 0.2 % (0-2); EOSINOPHILS 0 % (0-7); HEMATOCRIT 33.1 % (42.0-54.0); HEMOGLOBIN 10.6 g/dL (13.5-17.5); LYMPHOCYTES 21.3 % (15-50); MCH 29.1 pg (26.0-34.0); MCV 90.9 fL (80.0-100.0); MEAN PLATELET VOLUME 10.2 fL (7.4-10.4); MONOCYTES 6.9 % (2-11); NEUTROPHILS 70.6 % (40-80); PLATELET COUNT 307 10x3/uL (130-400); RBC 3.64 10x6/uL (4.20-6.10); RDW 14.3 % (11.5-14.5); WBC 9.3 10x3/uL (4.8-10.8)
[2018-04-21 07:46] LABS: ANION GAP 13.4 mmol/L (8-16); CALCIUM 9.5 mg/dL (8.5-10.1); CARBON DIOXIDE 27.5 mmol/L (21.0-32.0); CREATININE - SERUM 1.1 mg/dL (0.6-1.3); POTASSIUM - SERUM 4.9 mmol/L (3.5-5.1)
--- NOTE | 2018-04-21 08:05 | NUR ---
ALERT AND ORIENTED. NO C/O PAIN. EATING BREAKFAST.
[2018-04-21 08:09] VITALS: BP 125/78
--- NOTE | 2018-04-21 08:21 | NUR ---
REQUESTED VOLTAREN PO FROM PHARMACY AT THIS TIME.
--- NOTE | 2018-04-21 09:41 | NUR ---
CALLED FOR MED FROM PHARMACY-2ND TIME.
--- NOTE | 2018-04-21 10:43 | NUR ---
PARTICIPATING IN THERAPY THIS AM.
--- NOTE | 2018-04-21 13:30 | NUR ---
PATIENT DISCHARGING BACK TO HIS [facility] ON 04/24/18. SPOKE WITH RAMIRO DALTON AND IF PATIENT NEEDS PT IT WILL NEED TO BE AT AN OUTPATIENT FACILITY. WILL CONTINUE TO FOLLOW WITH PATIENT.
--- NOTE | 2018-04-21 13:41 | NUR ---
SHOWER WILL BE GIVEN TODAY PER OT.
--- NOTE | 2018-04-21 15:42 | NUR ---
PARTICIPATING IN THERAPY AT THIS TIME. NO CHANGE IN ASSESSMENT.
--- NOTE | 2018-04-21 17:45 | NUR ---
ACCIDENT URINE ON LINENS THIS AM. CHANGED LINENS.
[2018-04-21 19:00] VITALS: BP 131/80
--- NOTE | 2018-04-21 19:29 | NUR ---
PT UP IN CHAIR WATCHING TV, NO NEEDS NOTED FLUIDS AND CALL LIGHT WITHIN REACH
--- NOTE | 2018-04-22 01:22 | NUR ---
PT ASLEEP NO NEEDS NOTED, FLUIDS AND CALL LIGHT WITHIN REACH
--- NOTE | 2018-04-22 04:20 | NUR ---
PT ASLEEP NO NEEDS NOTED FLUIDS AND CALL LIGHT WITHIN SLEEP
[2018-04-22 07:33] VITALS: BP 135/88
--- NOTE | 2018-04-22 08:00 | NUR ---
SITTING UP IN BED EATING BREAKFAST. DENIES NEEDS OR PAIN. CALL LIGHT IN REACH
--- NOTE | 2018-04-22 10:48 | NUR ---
Nutrition Follow Up: Diet: Regular; Ensure TID PO Intake: 98% meal avg BM: 04/21/18 Meds and labs reviewed Rec continue current diet, supplement regimen. RD following.
--- NOTE | 2018-04-22 19:26 | NUR ---
PT ASLEEP IN RECLINER, FLUIDS AND CALL LIGHT WITHIN REACH
[2018-04-22 23:51] VITALS: BP 128/82
--- NOTE | 2018-04-22 23:57 | NUR ---
PT ASLEEP NO NEEDS NOTED FLUIDS AND CALL LIGHT WITHIN REACH
--- NOTE | 2018-04-23 04:10 | NUR ---
PT ASLEEP NO NEEDS NOTED FLUIDS AND CALL LIGHT WITHIN REACH
[2018-04-23 06:55] LABS: ANION GAP 14.2 mmol/L (8-16); CALCIUM 9.6 mg/dL (8.5-10.1); CARBON DIOXIDE 25.5 mmol/L (21.0-32.0); CREATININE - SERUM 1.1 mg/dL (0.6-1.3); POTASSIUM - SERUM 4.7 mmol/L (3.5-5.1)
[2018-04-23 07:01] LABS: BASOPHILS 0.3 % (0-2); EOSINOPHILS 0 % (0-7); HEMATOCRIT 32.6 % (42.0-54.0); HEMOGLOBIN 10.6 g/dL (13.5-17.5); LYMPHOCYTES 22.4 % (15-50); MCH 29.2 pg (26.0-34.0); MCHC 32.5 g/dL (31.0-37.0); MCV 89.8 fL (80.0-100.0); MEAN PLATELET VOLUME 10.4 fL (7.4-10.4); MONOCYTES 6.5 % (2-11); NEUTROPHILS 69.8 % (40-80); PLATELET COUNT 284 10x3/uL (130-400); RBC 3.63 10x6/uL (4.20-6.10); RDW 14.6 % (11.5-14.5); WBC 7.2 10x3/uL (4.8-10.8)
--- NOTE | 2018-04-23 08:20 | NUR ---
PT SITTING UP IN BED EATING BREAKFAST, DENIES NEEDS. WCTM.
[2018-04-23 09:00] VITALS: BP 106/67
--- NOTE | 2018-04-23 15:26 | NUR ---
CARE TEAM MEETING: PATIENT DOING WELL AND WILL TENATIVELY DISHCARGE HOME ON 04/24/18. [facility] WILL DELIVER A ROLLING WALKER. WILL CONTINUE TO FOLLOW WITH PATIENT.
--- NOTE | 2018-04-23 18:12 | NUR ---
PT SITTING UP IN BED EATING DINNER, WCTM.
--- NOTE | 2018-04-23 19:27 | NUR ---
AWAKE AND ALERT. SITTING UP IN CHAIR. RESPIRATIONS UNLABORED. NO DISTRESS NOTED. NO NEEDS VOICED.
[2018-04-24 01:19] VITALS: BP 127/79
--- NOTE | 2018-04-24 01:56 | NUR ---
RESTING IN BED WITH EYES CLOSED AND RESPIRTIONS UNLABORED. NO DISTRESS NOTED.
--- NOTE | 2018-04-24 04:20 | NUR ---
CONTINUES RESTING IN BED WITH NO DISTRESS NOTED.
[2018-04-24 08:00] VITALS: BP 122/81
[2018-04-24] MEDS ORDERED: BACTRIM DS PO (08:16)
[2018-04-24] MEDS ORDERED: VENTOLIN HFA18 GM INH (08:16)
[2018-04-24] MEDS ORDERED: Percocet-10 PO (08:18)
--- NOTE | 2018-04-24 09:38 | NUR ---
PATIENT DISCHARGING BACK HOME TO HIS [facility] GROUP FACILITY. [facility] DELIVERED A ROLLING WALKER TO PATIENT. AT THIS TIME HOME HEALTH HAS BEEN DECLINED . DR. KINGSTON /ERIBERTO SANDOVAL 04/30/18 @ 10:00, DR. CROOK 05/07/18 @ 3:15. [facility] FORM SIGNED AND FILED IN CHART. DISHCARGE INSTRUCTIONS WITH [facility] FAXED TO PCP AND SENT WITH PATIENT TO [facility].
--- NOTE | 2018-04-24 10:15 | NUR ---
REVIEWED MEDS AND INSTRUCTIONS WITH PT.FAXED COPY TO [facility].MEDS CALLED TO [facility].DISCHARGED TO [facility] TRANSPORTATION IN STABLE CONDITION WITH ROLLING WALKER.
--- NOTE | 2018-04-24 10:34 | NUR ---
PATIENT AT 0900 IN BED, SKIN W/D TO TOUCH, COLOR PINK, RESP. REGULAR AND EVEN AT 20 WITH PRODUCTIVE COUGH NOTED, PATIENT AFEBRILE AT 98.4, 122/81, 85, 20, 92 02 SAT ON ROOM AIR. LUNGS BILATED WHEEZING NOTED AND NICODERM PATCH INTACT TO RIGHT UPPER ARM AND NEW PATCH PLACED ON LEFT UPPER ARM. PATIENT TO BE DISCHARGED AT 10:00 AM INSTRUCTED AFTER DISCHARGE IF PATIENT WANTED TO SMOKE TO TAKE PATCH OFF AND WAIT 1 HOUR, VERBALIZED UNDERSTANDING. DENIED AND C/O PAIN OR DISCOMFORT WHEN ASKED. C/L WITHIN REACH AND SR'S UP X'S 2 AND BED IN LOWEST [POSITION.
--- NOTE | 2018-04-24 10:38 | NUR ---
PATIENT TRANSPORTATION HERE AND PATIENT DISCHARGED VIA W/C, VERBALIZED DISCHARGE INSTRUCTION.
== END 2018-04-24 11:15 | disposition home or self-care (01) | DRG 560 ==
LOC: D.REHAB 16:41
PROVIDERS: ADMIT Emergency Medicine
DX: Z47.1 Aftercare following joint replacement surgery (principal); K91.89 Other postprocedural complications and disorders of digestive system; K56.7 Ileus, unspecified; D62 Acute posthemorrhagic anemia; Z96.652 Presence of left artificial knee joint; M17.12 Unilateral primary osteoarthritis, left knee; R19.7 Diarrhea, unspecified; I10 Essential (primary) hypertension; J44.9 Chronic obstructive pulmonary disease, unspecified; R11.2 Nausea with vomiting, unspecified; E11.65 Type 2 diabetes mellitus with hyperglycemia; D72.829 Elevated white blood cell count, unspecified

== ENCOUNTER 2019-02-26 19:30 | Inpatient (IN) | payer MEDICARE ==
[~2019-02-26] VITALS: Ht 188 cm; Wt 100.2 kg
--- NOTE | ~2019-02-26 | HEMODYNAMI ---
PATIENT:AYALA GREENBERG MEDICAL RECORD: [id number] : 55 LOCATION[facility] [id number] ADMISSION DATE: 02/26/19 Generatedon:03/02/20199:54 Patient name: AYALA GREENBERG Patient #: [id number] : 1955 Date of study: 03/02/2019 Page: Of Hemodynamic Procedure Report Patient Data Patient Demographics Procedure consent was obtained First Name: AYALA Gender: Male Last Name: DIONICIO : 1955 Middle Initial: FRANCISCA Age: 63 year(s) Patient #: [id number] Race: SSN: [id number] Additional ID: [id number] Contact details Address: [address] [place] [address] State: [place] City: [facility] Zip code: [address] Admission Admission Data Admission Date: 02/26/2019 Admission Time: 21:59 Arrival Date: 02/26/2019 Arrival Time: 21:59 Admit Source: Other Insurance Payor: Medicare, Room #: D.2124 Medicaid HIC #: [id number] Height (in.): 188 BSA: 3.15 (m2) Height (cm.): 477.52 BMI: 1.95 (kg/m2) Weight (lbs.): 98 Weight (kg.): 44.45 Lab Results Lab Result Date: 03/02/2019 Lab Result Time: 0:00 Biochemistry Name Units Result Min Max BUN mg/dl 37 --(----)-* 7 18 Creatinine mg/dl 1 --(--*-)-- 0.6 1.3 eGFR ml/min 79.14709 *-(----)-- 90 120 NONAFRICAN CBC Name Units Result Min Max Hemoglobin g/dl 15.8 --(--*-)-- 13.5 17.5 Procedure Procedure Types Cath Procedure Diagnostic Procedure LHC LHC w/Coronaries Sedation Charges Moderate Sedation up to 30 minutes Procedure Description Procedure Date Procedure Date: 03/02/2019 Procedure Start Time: 9:31 Procedure End Time: 9:52 Procedure Staff Name Function Markie Mehta MD Performing Physician Reena Lion RT Monitor Charito Zambrano RT Scrub Sarah Beth Chi RN Nurse Mary Jones RN Nurse Mary Jones RN Psychology Assistant Procedure Data Cath Procedure Fluoroscopy Diagnostic fluoroscopy Total fluoroscopy Time: 3 time: 3 min min Diagnostic fluoroscopy Total fluoroscopy dose: 934 dose: 934 mGy mGy Contrast Material Contrast Material Type Amount (ml) Isovue 300 69 Entry Location Entry Primary Successful Side Size Upsize Upsize Entry Closure Succes sful Closure Location (Fr) 1 (Fr) 2 (Fr) Remarks Device Remarks Femoral Right 5 Fr Exoseal artery Estimated blood loss: 5 ml Diagnostic catheters Device Type Used For End Catheter Placement DIAGNOSTIC JL 5 5Fr Left Coronary catheter ([id number]) Angiography DIAGNOSTIC JR 3.5 5Fr LV Angiography catheter ([id number]) Procedure Complications No complications Procedure Medications Medication Administration Route Dosage 0.9% NaCl I.V. 100 ml/hr Oxygen etCO2 Nasal cannula 4 l/min Lidocaine 2% added to field 20 Heparin Flush Bag added to field 2 bags (1000units/500ml NS) Benadryl I.V. 50 mg Versed I.V. 1.5 mg Fentanyl I.V. 50 mcg Versed I.V. 0.5 mg Fentanyl I.V. 50 mcg Digoxin I.V. 0.25 mg Hemodynamics Rest BSA: 3.15 (m2) HGB: 15.8 (g/dl) O2 Consumption: Estimated: 373.29 (ml/min) O2 Co nsumption indexed: Estimated:118.5 (ml/min/m) Heart Rate: 75 (bpm) Pressure Samples Time Site Value (mmHg) Purpose Heart Use Rate(bpm) 9:45 LV 146/34,24 Snapshot 119 9:47 LV 157/17,19 Snapshot 99 Gradients Valve Time Site Site Mean SEP/DFP Peak To Heart Use 1 2 (mmHg) (sec/min) Peak Rate (mmHg) (bpm) Aortic 9:48 LV AO 96 Snapshots Pre Cath Intra NCS Post Cath Vital Signs Time Heart Resp SPO2 etCO2 NIBP (mmHg) Rhythm Pain Sedation Rate (ipm) (%) (mmHg) Status Level (bpm) 9:12:11 76 25 96 26.8 156/105(142) NSR 0 (11) 10(A) , No pain 9:16:31 78 24 96 20.8 148/83(102) NSR 0 (11) 10(A) , No pain 9:20:45 74 16 94 17.8 144/96(122) NSR 0 (11) 10(A) , No pain 9:25:01 72 13 96 0.7 130/81(103) NSR 0 (11) 10(A) , No pain 9:29:11 74 15 94 0 134/84(102) NSR 0 (11) 9(A) , No pain 9:33:25 68 13 98 0 120/77(97) NSR 0 (11) 9(A) , No pain 9:37:33 68 11 97 24.5 123/78(110) NSR 0 (11) 9(A) , No pain 9:41:40 76 11 96 0 125/81(106) NSR 0 (11) 9(A) , No pain 9:45:44 105 14 96 11.1 130/108(118) A-Fib 0 (11) 9(A) , No pain 9:49:50 98 14 92 0 136/92(120) A-Fib 0 (11) 9(A) , No pain Medications Time Medication Route Dose Verified Delivered Reason Notes Effe ctiveness by by 9:11:20 0.9% NaCl I.V. 100 Markie Nguyena used for ml/hr Janine Alon procedure MD PARSONS 9:14:51 Oxygen etCO2 4 Markie Burleson used for Nasal l/min Janine Alon procedure cannula MD PARSONS 9:14:56 Lidocaine 2% added 20ml [facility]ie Aden [facility] ZELAYA 9:15:00 Heparin Flush added 2 Markie Aden used for Bag to bags Janine Janine procedure (1000units/500ml field MD ZELAYA NS) 9:15:12 Benadryl I.V. 50 mg Markie Burleson used for Janine Alon procedure MD PARSONS 9:20:33 Versed I.V. 1.5 Markie Hernandez used for mg St Kevin Jones RN procedure 9:20:39 Fentanyl I.V. 50 Markie Hernandez for mcg [facility] Kevin Jones RN sedation 9:31:55 Versed I.V. 0.5 Markie Hernandez used for mg [facility] Kevin Jones RN procedure MD 9:31:59 Fentanyl I.V. 50 Markie Hernandez for [facility] Kevin Jones RN sedation 9:49:17 Digoxin I.V. 0.25 Markie Burleson Per mg St Kevin Chi physician market basket maker Log Time Note 8:22:09 Diagnostic Cath Status : Urgent 8:23:37 Informed consent obtained and on chart 8:25:20 Arrival Date: 02/26/2019 9:59:00 PM 8:25:50 Insurance Payor : Medicare, Medicaid 8:25:53 Admit Source: Other 8:26:17 Patient Height : 188 inches 8:26:22 Patient Weight : 98 lbs 8:27:10 Lab Result : Hemoglobin 15.8 g/dl 8:27:10 Lab Result : eGFR NONAFRICAN 79.89768 ml/min 8:27:10 Lab Result : BUN 37 mg/dl 8:27:10 Lab Result : Creatinine 1 mg/dl 8:27:47 Procedure Status Urgent Heart Cath (IP). 8:27:49 Sarah Beth Chi RN sent for patient. Start room use. 8:27:50 Time tracking: Regular hours (M-F 7:00 - 5:00) 8:27:55 Plan of Care:Hemodynamics will remain stable., Cardiac rhythm will remain stable., Comfort level will be maintained., Respiratory function will remain adequate., Patient/ family verbilizes understanding of procedure., Procedure tolerated without complication., Recovers from procedure without complications.. 9:11:10 Vital chart was started 9:11:20 0.9% NaCl 100 ml/hr I.V. was administered by Sarah Beth Chi RN; used for procedure; Verbal order read back and verified. 9:14:51 Oxygen 4 l/min etCO2 Nasal cannula was administered by Sarah Beth Chi RN; used for procedure; Verbal order read back and verified. 9:14:56 Lidocaine 2% 20ml vial added to field was administered by Markie Mehta MD; for local anesthetic; Verbal order read back and verified. 9:15:00 Heparin Flush Bag (1000units/500ml NS) 2 bags added to field was administered by Markie Mehta MD; used for procedure; Verbal order read back and verified. 9:15:12 Benadryl 50 mg I.V. was administered by Sarah Beth Chi RN; used for procedure; Verbal order read back and verified. 9:15:53 Patient received from Med II to CCL 2 Alert and oriented. Tansferred to table in Supine position. 9:15:54 Warm blankets applied, and usha hugger turned on for patient comfort. 9:15:55 Correct patient and procedure confirmed by team. 9:15:55 ECG and BP/O2 sat monitors applied to patient. 9:15:56 Baseline sample Acquired. 9:16:07 Rhythm: sinus tachycardia 9:16:09 Full Disclosure recording started 9:16:12 H&P Date Dictated: 03/02/2019 New H&P dictated by physician.. 9:16:14 Pre-procedure instructions explained to patient. 9:16:14 Pre-op teaching completed and patient verbalized understanding. 9:16:16 Family in waiting room. 9:16:17 Patient NPO since Midnight. 9:16:20 Is the patient allergic to Iodine/contrast media? No. 9:16:21 Was the patient premedicated? Yes 9:16:23 Is patient on blood thinner?No 9:16:25 Patient diabetic? Yes. 9:16:27 If diabetic: On Metformin? Yes 9:16:32 If on Metformin: Last Dose? 02/25/2019 9:16:35 Previous problem with sedation/anesthesia? No ? 9:16:37 Snore? Yes 9:16:38 Sleep apnea? No 9:16:39 Deviated septum? No 9:16:40 Opens mouth fully? Yes 9:16:41 Sticks out tongue? Yes 9:16:46 Airway obstruction? Yes COPD 9:17:00 Dentures? Yes OUT 9:17:03 Pre procedure: right dorsailis pedis pulse 2+ Normal; easily identifiable; not easily obliterated 9:17:06 Pre procedure: left dorsailis pedis pulse 2+ Normal; easily identifiable; not easily obliterated 9:17:07 Patient pain scale 0/10 ?. 9:18:27 IV patent on arrival in left hand with 0.9% NaCl at KVO. 9:18:29 Lab results completed and on chart. 9:18:38 Stress Test: no; N/A ? 9:18:42 Risk of Mortality: 0.1 9:18:45 Risk of blood transfusion: 0.4 9:18:49 Risk of WENDI: 0.1 9:18:53 Right Radial & Right Groin area was prepped with chlora-prep and draped in sterile fashion 9:18:54 Alarms reviewed by RMonica N. 9:18:55 Sharps counted by scrub and verified by R.N. 9:18:57 Physician arrived 9:18:57 --------ALL STOP TIME OUT------ 9:18:57 Final Timeout: patient, procedure, and site verified with staff and physician. All members of the team are in agreement. 9:19:00 Right Radial & Right Groin site verified by team. 9:19:22 Fire Safety Assessment: A--An alcohol-based skin anteseptic being used preoperatively., C--Open oxygen or nitrous oxide is being used., D--An ESU, laser, or fiber-optic light is being used. 9:19:25 Physical assessment completed. ASA score P 2 - A patient with mild systemic disease as per Markie Mehta MD. 9:19:28 2) 60-89 Mildly reduced kidney function, and other findings (as for stage 1) point to kidney disease. 9:19:31 Maximum allowable contrast dose (3.7 X eGFR X 0.75)222 ml. 9:19:36 Sedation plan: IV Moderate Sedation Medication:Versed, Fentanyl 9:20:07 Use device set Radial Dx or PCI 9:20:08 ACIST Syringe (30751) opened to sterile field. 9:20:09 Medline Cath Pack ([id number]) opened to sterile field. 9:20:09 Bag Decanter () opened to sterile field. 9:20:10 ACIST Hand Control (95177) opened to sterile field. 9:20:10 ACIST Manifold (86474) opened to sterile field. 9:20:10 Tegaderm 4 x 4 (1626W) opened to sterile field. 9:20:11 MBrace Wrist Support ([id number]) opened to sterile field. 9:20:15 SHEATH 6FR RAIN (8287018) opened to sterile field. 9:20:16 EMERALD Guide Wire (434-117) opened to sterile field. 9:20:33 Versed 1.5 mg I.V. was administered by Mary Jones RN; used for procedure; Verbal order read back and verified. 9:20:39 Fentanyl 50 mcg I.V. was administered by Mary Jones RN; for sedation; Verbal order read back and verified. 9:25:10 Zero performed for pressure channel P1 9:30:08 Procedure started. 9:31:31 Local anesthetic to right radial artery with Lidocaine 2% by Markie Mehta MD.INITIAL ACCESS ONLY 9:31:55 Versed 0.5 mg I.V. was administered by Mary Jones RN; used for procedure; Verbal order read back and verified. 9:31:59 Fentanyl 50 mcg I.V. was administered by Mary Jones RN; for sedation; Verbal order read back and verified. 9:34:28 Local anesthetic to right femoral artery with Lidocaine 2% by Markie Mehta MD.ADDITIONAL ACCESS 9:34:57 SHEATH 5FR [place] (GRQ674) opened to sterile field. 9:34:58 DIAGNOSTIC Multipack 5Fr catheter set (CS3317) opened to sterile field. 9:35:21 A 5 Fr sheath was inserted into the Right Femoral artery 9:35:34 5 Fr JL 4 guide catheter was inserted over the wire 9:37:08 Catheter removed. unable to cannulate vessel. 9:37:18 A DIAGNOSTIC JL 5 5Fr catheter ([id number]) was advanced over the wire and used for Left Coronary Angiography. 9:37:36 LCA angiography performed. 9:37:39 Injector settings: Ml/sec: 3, Volume: 6, 9:39:25 Catheter removed. 9:39:31 5 Fr 3DRC guide catheter was inserted over the wire 9:41:05 RCA angiography performed. 9:41:08 Injector settings: Ml/sec: 3, Volume: 6, 9:41:36 Catheter removed. 9:43:03 5 Fr PIGTAIL guide catheter was inserted over the wire 9:43:31 UNABLE TO CROSS VALVE 9:44:03 Catheter removed. 9:45:38 ROADRUNNER .035 260 glide wire (Y61810) opened to sterile field. 9:45:44 A DIAGNOSTIC JR 3.5 5Fr catheter (097325V) was advanced over the wire and used for LV Angiography. 9:47:36 LV hemodynamics recorded. 9:47:37 LV gram done using KELLY 9:47:40 Injector settings: Ml/sec: 5, Volume: 15, 9:47:48 EF : 25 % 9:48:19 Catheter removed. 9:49:17 Digoxin 0.25 mg I.V. was administered by Sarah Beth Chi RN; Per physician; Verbal order read back and verified. 9:49:58 EXOSEAL 5Fr (EX500) opened to sterile field. 9:50:07 Sheath removed intact; hemostasis achieved with Exoseal to the Right Femoral artery. 9:50:09 Procedure ended.(Physican Out) 9:50:21 Fluoroscopy time 03.00 minutes. 9:50:25 Fluoroscopy dose: 934 mGy 9:50:25 Flurop Dose total: 934 9:50:32 Dose Area Product 46464 mGy/cm. 9:50:43 Contrast amount:Isovue 300 69ml. 9:50:46 Maximum allowable dose exceeded? No. 9:50:48 Sharps counted by scrub and verified by R.N. 9:50:53 Insertion/operative site no bleeding no hematoma. 9:50:57 Post right femoral artery:stable 9:51:10 Post Procedure Pulses reassessed and unchanged 9:51:13 Post procedure rhythm: unchanged. 9:51:16 Estimated blood loss: 5 ml 9:51:17 Post procedure instruction explained to patient.Patient verbalizes understanding. 9:51:18 Patient needs reinforcement of post procedure teaching. 9:51:24 Procedure type changed to Cath procedure, Diagnostic procedure, C, [facility] w/Coronaries, Sedation Charges, Moderate Sedation up to 30 minutes 9:51:25 Procedure and supply charges have been captured, reviewed, submitted and are correct. 9:51:29 Procedure Complication : No complications 9:51:32 Vital chart was stopped 9:51:35 [facility] Findings: MVD- CABG consult 9:51:37 Operative report dictated upon procedure completion. 9:51:37 See physician's report for complete and final results. 9:51:39 Report given to [facility]. 9:51:57 Patient transfered to [facility] with Stretcher. 9:52:01 Procedure ended. 9:52:01 Full Disclosure recording stopped 9:52:09 End room use (Document Last) Device Usage Item Name Manufacture Quantity Catalog Hospital Part Current [facility] l Lot# / Number Charge Number Stock Stock Serial# Code ACIST Acist 1 21627 525490 815453 942835 20 Syringe Medical (45486) Systems Inc Medline Medline 1 [id number] 307549 66555 112371 5 Cath Pack ([id number]) Bag Microtek 1 2001S 878091 09933 418784 5 Decanter Medical Inc. () ACIST Hand Acist 1 77852 263801 372344 311461 5 Control Medical (24668) Systems Inc ACIST Acist 1 19492 111384 952316 931131 5 Manifold Medical (55117) Systems Inc Tegaderm 4 3M 1 1626W 880820 601748 885931 5 x 4 (1626W) MBrace Advanced 1 140-0250-00 816576 67947 813021 5 Wrist Vascular Support Dynamics ([id number]) SHEATH 6FR Cardinal 1 7984065 216723 7501302 895693 5 Muufri (7510741) EMERALD Cardinal 1 502-455 184001 170535 366952 5 Guide Wire Health (502-455) SHEATH 5FR Terumo 1 WWH572 376971 201164 097866 5 [place] (VCV713) DIAGNOSTIC Cardinal 1 ZQ6450 667894 52332 738530 30 Multipack Health 5Fr catheter set (ZY1800) DIAGNOSTIC Cardinal 1 [id number] 727416 996461 434143 5 JL 5 5Fr Health catheter (317082I) [facility] 1 P79307 113008 101810 612155 5 .035 260 glide wire (M59572) DIAGNOSTIC Cardinal 1 495064G 124566 679960 3193056 5 JR 3.5 5Fr Health catheter (765968D) EXOSEAL 5Fr Cardinal 1 EX500 756331 437485 583467 10 (EX500) Health Signature Audit [place] Stage Time Signature Unsigned Intra-Procedure 03/02/2019 Reena Lion 9:53:15 AM RT(R) Intra-Procedure 03/02/2019 Sarah Beth Chi 9:53:39 AM RN Intra-Procedure 03/02/2019 Markie Valero 9:54:20 AM Kevin ZELAYA Signatures Performing Physician : Signature : Markie Mehta MD Date : Time : Monitor : Reena Ayad RT Signature : Date : Time : Nurse : Sarah Beth Alon RN Signature : Date : Time : Nurse : Buffie Jones RN Signature : Date : Time : [facility] [address] [place], [place] [address] [address]
[~2019-02-26 19:30] MED LIST changes: +BACTRIM DS PO; -CLOZARIL100 MG PO; +CLOZARIL25 MG PO; -NEXIUM40 MG; +NEXIUM40 MG PO; +VENTOLIN HFA18 GM INH
[2019-02-26 19:46] LABS: BASOPHILS 0.1 % (0-2); EOSINOPHILS 0 % (0-7); HEMATOCRIT 48.4 % (42.0-54.0); HEMOGLOBIN 16.6 g/dL (13.5-17.5); IMMATURE GRANULOCYTES 0.4 % (0-5); LYMPHOCYTES 14.6 % (15-50); MCH 31.4 pg (26.0-34.0); MCHC 34.3 g/dL (31.0-37.0); MCV 91.7 fL (80.0-100.0); MEAN PLATELET VOLUME 11.1 fL (7.4-10.4); MONOCYTES 4.6 % (2-11); NEUTROPHILS 80.3 % (40-80); PLATELET COUNT 230 10x3/uL (130-400); RBC 5.28 10x6/uL (4.20-6.10); RDW 14.2 % (11.5-14.5); WBC 15.9 10x3/uL (4.8-10.8)
[2019-02-26 19:57] LABS: CALC OSMOLALITY 290 mosm/kg (275-300); CALCIUM 9.3 mg/dL (8.5-10.1); CARBON DIOXIDE 23.1 mmol/L (21.0-32.0); CHLORIDE - SERUM 101 mmol/L (98-107); CREATININE - SERUM 1.2 mg/dL (0.6-1.3); POTASSIUM - SERUM 3.6 mmol/L (3.5-5.1); SODIUM 139 mmol/L (136-145); UREA NITROGEN 17 mg/dL (7-18); eGFR NON AFRICAN AMERICAN 65 mL/min (90-120)
[2019-02-26 19:58] LABS: GLUCOSE 292 mg/dL (74-106)
[2019-02-26 20:08] LABS: APTT 32.1 SECONDS (22.8-39.4); INR 1.23 (0.85-1.17); PROTIME 14.9 SECONDS (11.6-15.0)
[2019-02-26 20:09] LABS: D-DIMER-QUANTITATIVE 0.62 ug/mLFEU (0.20-0.54)
[2019-02-26 20:10] VITALS: BP 166/100
[2019-02-26 20:20] LABS: ALBUMIN 4.3 g/dL (3.4-5.0); ALKALINE PHOSPHATASE 85 U/L (46-116); ALT (SGPT) 38 U/L (10-68); BILIRUBIN - TOTAL 0.65 mg/dL (0.2-1.3); CKMB 1.8 U/L (0.0-3.6); CREATINE KINASE 73 UL (21-232); PRO BNP 1636 pg/mL (0-125); PROTEIN - SERUM 7.9 g/dL (6.4-8.2)
[2019-02-26 20:23] LABS: TROPONIN-I 0.069 ng/mL (0.000-0.060)
--- NOTE | 2019-02-26 20:36 | NUR ---
CHANGED O2 TO 4 LPM NC PER EDP ORDERS. WILL MONITOR FOR DESAT AND REEVALUATE.
--- NOTE | 2019-02-26 20:46 | NUR ---
PT TO CT AT THIS TIME VIA STRETCHER. O2 MONITOR IN PLACE FOR MONITORING. PT STABLE AT THIS TIME.
[2019-02-26 21:26] VITALS: BP 169/95
--- NOTE | 2019-02-26 22:50 | NUR ---
USP CONTACT INFORMATION: RAMIRO KIRK [phone]
[2019-02-27] VITALS (7 sets, daily range): BP systolic 126–167; BP diastolic 78–93; BMI 27.6
--- NOTE | 2019-02-27 00:13 | NUR ---
RECIEVED REPORT FROM NANCI PARSONS IN ER AT 2245. ARRIVED TO FLOOR ON STRETCHER AT 2310. TRANSFERED SELF TO BED. ALERT AND ORIENTED X4. UP AD AURELIO. SAID HE LIVES IN A [facility]. ADDRESS IS ON [facility]. IV TO LEFT AC SL.. 02@ 3.5 LITERS WITH SAT OF 95%. LUNG SOUNDS HAVE WHEEZES TO LOWER LOBES. ABDOMEN APPEARS DISTENDED WITH UMBILICA HERNIA. NO EDEMA TO UPPER OR LOWER EXTREMITIES. REQUESTED SOMETHING TO EAT. SANDWICH BOX AND CHIPS GIVEN. DENIES ANY OTHER NEEDS. ASSESSMENT COMPLETED.
--- NOTE | 2019-02-27 00:52 | NUR ---
DOES NOT KNOW HIS MEDICATION. SAID THE NURSE GIVES HIM HIS MEDICATION.
[2019-02-27 05:36] LABS: BASOPHILS 0 % (0-2); EOSINOPHILS 0 % (0-7); HEMATOCRIT 47.2 % (42.0-54.0); IMMATURE GRANULOCYTES 0.1 % (0-5); LYMPHOCYTES 7.3 % (15-50); MCH 30.7 pg (26.0-34.0); MCHC 33.9 g/dL (31.0-37.0); MCV 90.4 fL (80.0-100.0); MEAN PLATELET VOLUME 11.5 fL (7.4-10.4); MONOCYTES 2.1 % (2-11); NEUTROPHILS 90.5 % (40-80); RBC 5.22 10x6/uL (4.20-6.10); RDW 14.2 % (11.5-14.5)
[2019-02-27 06:27] LABS: PLATELET COUNT 183 10x3/uL (130-400); WBC 7.7 10x3/uL (4.8-10.8)
[2019-02-27 06:34] LABS: ALKALINE PHOSPHATASE 77 U/L (46-116); ALT (SGPT) 32 U/L (10-68); BILIRUBIN - TOTAL 0.67 mg/dL (0.2-1.3); CALC OSMOLALITY 287 mosm/kg (275-300); CALCIUM 9.4 mg/dL (8.5-10.1); CARBON DIOXIDE 27.7 mmol/L (21.0-32.0); CHLORIDE - SERUM 104 mmol/L (98-107); CKMB 3.6 U/L (0.0-3.6); CREATINE KINASE 85 UL (21-232); CREATININE - SERUM 0.9 mg/dL (0.6-1.3); GLUCOSE 177 mg/dL (74-106); MAGNESIUM - SERUM 1.8 mg/dL (1.8-2.4); PHOSPHOROUS 3.4 mg/dL (2.5-4.9); PRO BNP 4366 pg/mL (0-125); PROTEIN - SERUM 7.5 g/dL (6.4-8.2); SODIUM 142 mmol/L (136-145); TROPONIN-I 0.476 ng/mL (0.000-0.060); UREA NITROGEN 15 mg/dL (7-18); eGFR NON AFRICAN AMERICAN > 90 mL/min (90-120)
--- NOTE | 2019-02-27 07:29 | NUR ---
REPORT RECEIVED. WILL CONTINUE WITH POC. PT CURRENTLY SITTING ON EDGE OF BED. CALL LIGHT W/I REACH. PT IS AAO AND UP AD AURELIO. RR EVEN AND UNLABORED ON 4L 02. L.AC PIV IS SALINE LOCKED. PT DENIES ANY NEEDS AT THIS TIME. NO S/S OF DISTRESS NOTED. WILL CTM.
[2019-02-27] MEDS ORDERED: TRELEGY ELLIPT1 EACH INH (09:57)
[2019-02-27] MEDS ORDERED: HALDOL5 MG/ML IM (09:58)
[2019-02-27] MEDS ORDERED: BENZTROPINE MESY2 MG PO (10:00)
[2019-02-27] MEDS ORDERED: IPRAT-ALBUT 0.5-3 ML UPD (10:01)
[2019-02-27] MEDS ORDERED: FERROUS SULFAT325 MG PO (10:01)
[2019-02-27] MEDS ORDERED: LISINOPRIL20 MG PO (10:02)
--- NOTE | 2019-02-27 13:46 | MORECARE ---
CASE MANAGEMENT DISCHARGE SUMMARY PATIENT: AYALA GREENBERG UNIT: [id number] ADM DATE: 02/26/19 AGE: 63 : 55 SEX: M ROOM/BED: D.2124 AUTHOR: SAMM TILLMAN PHYSICIAN: REFERRING PHYSICIAN: KHADAR ADAN MD DATE OF SERVICE: 02/27/19 Discharge Plan Patient Name: AYALA GREENBERG [facility] : 1955 Planned Disposition: Other Type of Facility Anticipated Discharge Date: 03/02/19 Discharge Date: Expected LOS: 4 Initial Reviewer: [email or web address] Initial Review Date: 02/26/2019 Generated: 02/27/19 2:46 pm Patient Name: AYALA GREENBERG Page 14621 at 1346 All edits/amendments must be made on the electronic document DICTATION DATE: 02/27/19 1345 SEISMIC PLOTTER: PAIGE 02/27/19 1345 RPT#: [id number] DC DATE: STATUS: ADM IN [address] [place] [address] END OF REPORT
--- NOTE | 2019-02-27 13:57 | MORECARE ---
CASE MANAGEMENT DISCHARGE SUMMARY PATIENT: AYALA GREENBERG UNIT: [id number] ADM DATE: 02/26/19 AGE: 63 : 55 SEX: M ROOM/BED: D.7394 AUTHOR: PRIMO,DOC PHYSICIAN: REFERRING PHYSICIAN: KHADAR ADAN MD DATE OF SERVICE: 02/27/19 Discharge Plan Patient Name: AYALA GREENBERG Facility: [facility]:[place] : 1955 Planned Disposition: Other Type of Facility Anticipated Discharge Date: 03/02/19 Discharge Date: Expected LOS: 4 Initial Reviewer: [email or web address] Initial Review Date: 02/26/2019 Generated: 02/27/19 2:57 pm Comments DCP- Discharge Planning Updated by [email or web address]: Sabrina Tolbert on 02/27/19 12:[address] DC PLAN: Return to [facility] ANTICIPATED DC NEEDS: Denied known dc needs. CM met with patient to complete initial dc planning assessment. CM educated patient on the CM role and verbal consent given by patient to complete assessment. CM verified patient's address, phone number, and emergency contact phone numbers. Patient lives at [facility] and reports he is able to care for himself. He received assistance with his medications and transportation. He goes to [facility] from [facility]. He is transported to and from via [facility] Van. At discharge patient plans to return to [facility] and feels this is a safe discharge. CM discussed availability of home health, rehab services, and medical equipment. Patient denied known discharge needs at this time. Transportation provider at discharge will be his case work aide Christine @ [phone] . CM will continue to follow and will assist as needed with dc plans/needs. Sabrina Tolbert RN, [facility] DCPIA - Discharge Planning Initial Assessment Updated by [email or web address]: Sabrina Tolbert on 02/27/19 1:47 pm * Is the patient Alert and Oriented? Yes * How many steps to enter\exit or inside your home? None * PCP Arlette Tinoco * [facility]. He is not sure what pharmacy they use. * Preadmission Environment Longterm * Facility Name [facility] * ADLs Partial Dependent * Partial ADLs (Assistance needed) Medication Management * Equipment Cane Nebulizer * List name and contact numbers for known caregivers / representatives who currently or will assist patient after discharge: Ira Thomas - nurse at [place] - [phone] Christine Amena - Handbag Finisher - [phone] * Verbal permission to speak to the caregivers and representatives has been obtained from the patient. Yes * Community resources currently utilized None * Additional services required to return to the preadmission environment? No * Can the patient safely return to the preadmission environment? Yes * Has this patient been hospitalized within the prior 30 days at any hospital? No Last DP export: 02/27/19 12:46 Patient Name: AYALA GREENBERG Page 61380 at 1357 All edits/amendments must be made on the electronic document DICTATION DATE: 02/27/191356 ACOUSTIC SENSOR OPERATOR: PAIGE 02/27/19 1357 RPT#: [id number] MS DATE: STATUS: ADM IN [facility] [address] [place] [address] END OF REPORT
[2019-02-27 15:49] LABS: APPEARANCE CLEAR (CLEAR); BILIRUBIN NEGATIVE (NEGATIVE); COLOR YELLOW (YELLOW); GLUCOSE NEGATIVE (NEGATIVE); KETONE NEGATIVE (NEGATIVE); NITRITE NEGATIVE (NEGATIVE); PROTEIN TRACE mg/dL (NEGATIVE); UROBILINOGEN NORMAL (NORMAL)
--- NOTE | 2019-02-27 19:09 | NUR ---
RECEIVED UP IN BED WITH EYES CLOSED. OPENS EYES WITH VERBAL STIMULI. ORIENTED X4. ON BEDREST AT THIS TIME D/T BILATERAL DVTS. VOICED UNDERSTANDING. USES URINAL. IV TO LEFT AC SL. ABD DISTENDED WITH HERNIA PER PT. DENIES ANY NEEDS.
[2019-02-28 04:30] VITALS: BP 125/80
[2019-02-28 05:28] LABS: BASOPHILS 0 % (0-2); EOSINOPHILS 0 % (0-7); HEMATOCRIT 47.6 % (42.0-54.0); IMMATURE GRANULOCYTES 0.3 % (0-5); LYMPHOCYTES 4.3 % (15-50); MCH 30.9 pg (26.0-34.0); MCHC 33.6 g/dL (31.0-37.0); MCV 91.9 fL (80.0-100.0); NEUTROPHILS 90.4 % (40-80); PLATELET COUNT 191 10x3/uL (130-400); RBC 5.18 10x6/uL (4.20-6.10); RDW 14.5 % (11.5-14.5)
[2019-02-28 05:31] LABS: WBC 14.8 10x3/uL (4.8-10.8)
[2019-02-28 05:40] LABS: CALC OSMOLALITY 296 mosm/kg (275-300); CALCIUM 9.5 mg/dL (8.5-10.1); CARBON DIOXIDE 28.4 mmol/L (21.0-32.0); CHLORIDE - SERUM 104 mmol/L (98-107); GLUCOSE 181 mg/dL (74-106); POTASSIUM - SERUM 3.9 mmol/L (3.5-5.1); SODIUM 144 mmol/L (136-145); eGFR NON AFRICAN AMERICAN 80 mL/min (90-120)
[2019-02-28 05:44] LABS: PHOSPHOROUS 5.2 mg/dL (2.5-4.9); UREA NITROGEN 26 mg/dL (7-18)
[2019-02-28 07:53] VITALS: BP 116/76
[2019-02-28 09:10] LABS: PSA - % FREE 16.5 % (()); PSA - FREE 1.8 ng/mL; PSA - TOTAL 10.9 ng/mL (0.0-4.0)
--- NOTE | 2019-02-28 09:10 | NUR ---
AM MEDS GIVEN AT THIS TIME. PT RESTING COMFORTABLY IN BED, DENIES ANY NEEDS AT THIS TIME, CALL LIGHT IN REACH, NAD NOTED, WILL CONTINUE TO MONITOR.
[2019-02-28 11:27] VITALS: BP 122/71
--- NOTE | 2019-02-28 11:33 | NUR ---
BLOOD SUGAR OF 189, 2UNITS OF INSULIN GIVEN PER S/S. PT RESTING COMFORTABLY IN BED, DENIES ANY NEEDS AT THIS TIME. CALL LIGHT IN REACH, NAD NOTED, WILL CONTINUE TO MONITOR.
--- NOTE | 2019-02-28 14:44 | NUR ---
PT UP TO SIDE OF BED, WATCHING TV, DENIES ANY NEEDS AT THIS TIME. CALL LIGHT IN REACH, NAD NOTED, WILL CONTINUE TO MONITOR.
[2019-02-28 15:44] VITALS: BP 137/79
--- NOTE | 2019-02-28 19:54 | NUR ---
RECIEVED UP IN BED WITH HOB ELEVTED AND O2@4 LITERS PER N/C IN PLACE. ALERT AND ORIENTED X4. REMAINS ON BEDREST AT THIS TIME D/T BILATERAL DVT TO POSTERIOR KNEES. IV TO LEFT AC SL.. [facility]. DENIES ANY NEEDS AT THIS TIME
[2019-02-28 20:00] VITALS: BP 142/86
--- NOTE | 2019-02-28 20:27 | NUR ---
UP AMBULATING IN ROOM. REDUCATED ON BEDREST WITH VERBAL UNDERSTANDING.
--- NOTE | 2019-02-28 21:28 | NUR ---
IV TO LEFT AC LEAKING. RESTARTED TO LEFT HAND WITH 22G ATTEMPTS X1. D/C'D LEFT AC.
[2019-03-01] VITALS: BP 144/90
[2019-03-01 04:00] VITALS: BP 146/84
[2019-03-01 05:40] LABS: BASOPHILS 0 % (0-2); EOSINOPHILS 0 % (0-7); HEMATOCRIT 47.2 % (42.0-54.0); HEMOGLOBIN 15.4 g/dL (13.5-17.5); IMMATURE GRANULOCYTES 0.3 % (0-5); LYMPHOCYTES 4.3 % (15-50); MCH 30.4 pg (26.0-34.0); MCHC 32.6 g/dL (31.0-37.0); MCV 93.3 fL (80.0-100.0); MEAN PLATELET VOLUME 11.6 fL (7.4-10.4); MONOCYTES 3.3 % (2-11); NEUTROPHILS 92.1 % (40-80); PLATELET COUNT 186 10x3/uL (130-400); RBC 5.06 10x6/uL (4.20-6.10); RDW 14.7 % (11.5-14.5); WBC 14.1 10x3/uL (4.8-10.8)
[2019-03-01 06:03] LABS: CALC OSMOLALITY 296 mosm/kg (275-300); CALCIUM 9.1 mg/dL (8.5-10.1); CARBON DIOXIDE 28.9 mmol/L (21.0-32.0); CHLORIDE - SERUM 105 mmol/L (98-107); CREATININE - SERUM 0.9 mg/dL (0.6-1.3); GLUCOSE 178 mg/dL (74-106); MAGNESIUM - SERUM 2.1 mg/dL (1.8-2.4); PHOSPHOROUS 4.9 mg/dL (2.5-4.9); POTASSIUM - SERUM 4.1 mmol/L (3.5-5.1); SODIUM 143 mmol/L (136-145); eGFR NON AFRICAN AMERICAN > 90 mL/min (90-120)
[2019-03-01 06:04] LABS: UREA NITROGEN 35 mg/dL (7-18)
--- NOTE | 2019-03-01 07:20 | NUR ---
RECIEVE REPORT. ALERT AND ORIENTED X4. RECIEVING UPDRAFT TREATMENT. DENIES ANY NEEDS AT THIS TIME. CONTINUE PLAN OF CARE AND SAFETY PRECAUTIONS.
[2019-03-01 09:31] LABS: CHOL - HDL RATIO 7.7 ratio (2.3-4.9); LDL-HDL RATIO 5.2 ratio (1.5-3.5)
[2019-03-01 09:33] VITALS: BP 118/71
[2019-03-01 13:32] VITALS: BP 145/89
--- NOTE | 2019-03-01 16:57 | NUR ---
ALERT AND ORIENTED X4. SITTING UP IN BED. CONSENTS FOR LAW OFFICE RECEPTIONIST SIGNED ON CHART. SINUS RYTHM ON TELEMTRY. DENIES ANY NEEDS AT THIS TIME. CONTINUE PLAN OF CARE AND SAFETY PRECAUTIONS.
[2019-03-01 17:32] VITALS: BP 145/89
[2019-03-01 20:00] VITALS: BP 143/94
[2019-03-02] VITALS: BP 144/84
[2019-03-02 04:30] VITALS: BP 145/95
[2019-03-02 05:46] LABS: BASOPHILS 0 % (0-2); EOSINOPHILS 0 % (0-7); HEMATOCRIT 48.6 % (42.0-54.0); HEMOGLOBIN 15.8 g/dL (13.5-17.5); IMMATURE GRANULOCYTES 0.2 % (0-5); MCH 30.6 pg (26.0-34.0); MCHC 32.5 g/dL (31.0-37.0); MONOCYTES 4.7 % (2-11); NEUTROPHILS 91.1 % (40-80); PLATELET COUNT 184 10x3/uL (130-400); RBC 5.17 10x6/uL (4.20-6.10); RDW 14.5 % (11.5-14.5); WBC 11.4 10x3/uL (4.8-10.8)
[2019-03-02 06:01] LABS: CALC OSMOLALITY 297 mosm/kg (275-300); CALCIUM 9.5 mg/dL (8.5-10.1); CHLORIDE - SERUM 106 mmol/L (98-107); GLUCOSE 209 mg/dL (74-106); MAGNESIUM - SERUM 2.5 mg/dL (1.8-2.4); POTASSIUM - SERUM 4.7 mmol/L (3.5-5.1); SODIUM 142 mmol/L (136-145); UREA NITROGEN 37 mg/dL (7-18); eGFR NON AFRICAN AMERICAN 80 mL/min (90-120)
[2019-03-02 09:04] VITALS: BP 140/97
--- NOTE | 2019-03-02 10:12 | NUR ---
RETURN TO ROOM VIA BED FROM BUILDING CUSTODIAN. RT GROIN DRESSING CLEAN DRY INTACT. PULSE +2 BILATERAL. FREE FROM HEMATOMA. FREE FROM BLEEDING. O2 SAT 94% WITH 5L NC. BP-140/77, HR-82. ENCOURAGE TO REMAIN FLAT FOR NEXT 2 HOURS DUE TO INCREASE RISK FOR BLEEDING. CONTINUE PLAN OF CARE AND SAFETY PRECAUTIONS.
--- NOTE | 2019-03-02 13:22 | NUR ---
Nutrition Follow-up: Pt in skilled laborer at time of visit. Chart reviewed. Diet: NPO PO intake: 75% avg x 5 meals Wt: 215# Last BM: 02/28 per chart Labs noted: Glu 209 Meds noted: Solumedrol, Humalog, KDur -Rec cardiac diabetic diet when medically feasible. -RD following.
[2019-03-02 13:54] VITALS: BP 150/74
[2019-03-02 14:52] LABS: BASOPHILS 0 % (0-2); EOSINOPHILS 0 % (0-7); HEMATOCRIT 49.4 % (42.0-54.0); HEMOGLOBIN 16.3 g/dL (13.5-17.5); IMMATURE GRANULOCYTES 0.2 % (0-5); LYMPHOCYTES 4.8 % (15-50); MCV 94.1 fL (80.0-100.0); MONOCYTES 7.4 % (2-11); NEUTROPHILS 87.6 % (40-80); PLATELET COUNT 172 10x3/uL (130-400); RBC 5.25 10x6/uL (4.20-6.10); RDW 14.4 % (11.5-14.5)
[2019-03-02 15:09] LABS: LUPUS - INTERPRETATION Comment: (()); LUPUS - THROMBIN TIME 16.6 sec (0.0-23.0); LUPUS - dRVVT 25.4 sec (0.0-47.0); PTT-LA 33.4 sec (0.0-51.9)
[2019-03-02 15:09] LABS: ACLA - IGG AB <9 GPL U/mL (0-14); ACLA - IGM AB <9 MPL U/mL (0-12)
[2019-03-02 15:21] LABS: INR 1.37 (0.85-1.17); PROTIME 16.3 SECONDS (11.6-15.0)
[2019-03-02 15:22] LABS: APTT 62.3 SECONDS (22.8-39.4)
[2019-03-02 15:46] LABS: ALBUMIN 3.7 g/dL (3.4-5.0); ALKALINE PHOSPHATASE 62 U/L (46-116); ALT (SGPT) 42 U/L (10-68); BILIRUBIN - TOTAL 0.71 mg/dL (0.2-1.3); CALC OSMOLALITY 292 mosm/kg (275-300); CALCIUM 9.2 mg/dL (8.5-10.1); CARBON DIOXIDE 28.9 mmol/L (21.0-32.0); CHLORIDE - SERUM 106 mmol/L (98-107); CHOLESTEROL, TOTAL 220 mg/dL (0-200); CREATININE - SERUM 0.8 mg/dL (0.6-1.3); GLUCOSE 168 mg/dL (74-106); POTASSIUM - SERUM 4.7 mmol/L (3.5-5.1); SODIUM 141 mmol/L (136-145); T4 THYROXIN - FREE 1.44 ng/dL (0.76-1.46); THYROID STIMULATING HORMONE 0.38 uIU/mL (0.36-3.74); UREA NITROGEN 34 mg/dL (7-18); URIC ACID 6.8 mg/dL (2.6-7.2); eGFR NON AFRICAN AMERICAN > 90 mL/min (90-120)
[2019-03-02 15:47] LABS: PHOSPHOROUS 2.5 mg/dL (2.5-4.9)
--- NOTE | 2019-03-02 16:00 | NUR ---
Rehab Note- Acute Inpatient Rehab prescreen order received. The patient continues to have an acute work up with the Cardiovascular Surgeon. Will continue to follow at this time. Also has a PT Eval pending. Have spoken with JAY Whitley. Thank you for this referral! Adelita Hardy RN Clinical Liaison, [facility] Rehab
[2019-03-02 16:48] VITALS: Ht 188 cm; Wt 100.2 kg
[2019-03-02 17:00] VITALS: BP 142/85
--- NOTE | 2019-03-02 17:00 | MORECARE ---
CASE MANAGEMENT DISCHARGE SUMMARY PATIENT: AYALA GREENBERG UNIT: [id number] ADM DATE: 02/26/19 AGE: 63 : [birth year] SEX: M ROOM/BED: D.3644 AUTHOR: PRIMO,DOC PHYSICIAN: REFERRING PHYSICIAN: KHADAR ADAN MD DATE OF SERVICE: 03/02/19 Discharge Plan Patient Name: AYALA GREENBERG [facility] [facility] 1955 Planned Disposition: Inpatient Rehab Anticipated Discharge Date: 03/02/19 Discharge Date: Expected LOS: 4 Initial Reviewer: [email or web address] Initial Review Date: 02/26/2019 Generated: 03/02/19 6:00 pm Comments DCP- Discharge Planning Updated by [email or web address]: Nithin Lopez on 03/02/19 3:[address] Patient Name: AYALA GREENBERG Encounter No: [id number] : 1955 Primary Insurance: MEDICARE A & B Anticipated DC Date: 03-02-2019 Planned Disposition: Inpatient Rehab External Planned Provider: [facility] INPATIENT [facility] DCP follow-up note: CM RECEIVED ORDER FOR INPATIENT PRESCREENING, PLACEMENT AND ASSISTANCE AT DISCHARGE. CM SPOKE TO RIP OF INPATIENT REHAB WHO INFORMED CM THAT THEY WILL CONSIDER PT FOR REHAB AT DISCHARGE. CM RECEIVED CALL FROM IRA MARRUFO RN, OF [facility] WHO HAS TALKED TO NURSING AND THINKS PT WILL NEED REHAB PRIOR TO [facility] RETURN. CM SPOKE TO PT IN ROOM, PT IS WILLING FOR REHAB AT [facility] AT DISCHARGE. PT'S BROTHER CALLED, PT ASKED CM TO SPEAK TO HIM AND TELL HIM THE PLAN. CM SPOKE TO PRIYANK GREENBERG, , WHO IS ALSO IN AGREEEMENT WITH REHAB AT [facility]. IMPORTANT MESSAGE FROM MEDICARE PROVIDED AND EXPLAINED. CM WAITING MEDICAL STABILITY. INPATIENT REHAB AT [place] WILL SCREEN FOR ADMISSION. RODRIGO Hurtado DCP- Discharge Planning Updated by [email or web address]: Sabrina Tolbert on 02/27/19 12:[address] DC PLAN: Return to [facility] ANTICIPATED DC NEEDS: Denied known dc needs. CM met with patient to complete initial dc planning assessment. CM educated patient on the CM role and verbal consent given by patient to complete assessment. CM verified patient's address, phone number, and emergency contact phone numbers. Patient lives at [facility] and reports he is able to care for himself. He received assistance with his medications and transportation. He goes to [facility] from [facility]. He is transported to and from via [facility]. At discharge patient plans to return to [facility] and feels this is a safe discharge. CM discussed availability of home health, rehab services, and medical equipment. Patient denied known discharge needs at this time. Transportation provider at discharge will be his case hardener Christine @ [phone] . CM will continue to follow and will assist as needed with dc plans/needs. Sabrina Tolbert RN, [facility] DCPIA - Discharge Planning Initial Assessment Updated by [email or web address]: Sabrina Tolbert on 02/27/19 1:47 pm * Is the patient Alert and Oriented? Yes * How many steps to enter\exit or inside your home? None * PCP Arlette Tinoco * Pharmacy [facility] Manages his medications. He is not sure what pharmacy they use. * Preadmission Environment Usp * Facility Name [facility] * ADLs Partial Dependent * Partial ADLs (Assistance needed) Medication Management * Equipment Cane Nebulizer * List name and contact numbers for known caregivers / representatives who currently or will assist patient after discharge: Ira Thomas - nurse at [place] - [phone] Christine Beckwith - Leasing Director - [phone] * Verbal permission to speak to the caregivers and representatives has been obtained from the patient. Yes * Community resources currently utilized None * Additional services required to return to the preadmission environment? No * Can the patient safely return to the preadmission environment? Yes * Has this patient been hospitalized within the prior 30 days at any hospital? No Last DP export: 02/27/19 12:57 Patient Name: AYALA GREENBERG Page [id number] at 1700 All edits/amendments must be made on the electronic document DICTATION DATE: 03/02/191699 COMPOSITION TILE LAYER: PAIGE 03/02/191699 RPT#: [id number] DC DATE: STATUS: ADM IN [facility] [address] [place] [address] END OF REPORT
--- NOTE | 2019-03-02 17:03 | NUR ---
ALERT AND ORIENTED X4. SITTING UP IN BED. RT GROIN DRESSING CLEAN DRY INTACT. FREE FROM HEMATOMA. FREE FROM BLEEDING. REFUSE TO SIGN CONSENT FOR VALVE REPLACEMENT SCHEDULED IN THE MORNING. PATIENT STATES, "I CHANGED MY MIND AND I DON'T WANT IT." EXPLAIN RISK IF PROCEDURE NOT DONE. PATIENT STATES, "I KNOW, BUT I DON'T WANT IT."
--- NOTE | 2019-03-02 17:33 | NUR ---
CALL ANATOLY PATIENT SISTER REQUESTING POA DUE TO PATIENT REFUSAL FOR PROCEDURE. ANATOLY STATES, "I THINK IT IS MY BROTHER, I WILL CALL HIM AND FIND OUT." REQUEST CALL BACK ASHKAN.
--- NOTE | 2019-03-02 18:27 | NUR ---
CONSENTS FOR PROCEDURE SIGNED ON CHART.
--- NOTE | 2019-03-02 19:40 | NUR ---
RECEIVED BEDSIDE REPORT. PATIENT IS ALERT AND ORIENTED, RESTING COMFORTABLY IN BED. RESPIRATIONS ARE EVEN AND UNLABORED. NO S/S OF DISTRESS. NO C/O PAIN. CALL LIGHT WITHIN REACH. FAMILY AT BEDSIDE. WILL CPOC.
[2019-03-02 20:45] VITALS: BP 158/92
[2019-03-02 22:04] LABS: APPEARANCE CLEAR (CLEAR); BILIRUBIN NEGATIVE (NEGATIVE); COLOR YELLOW (YELLOW); GLUCOSE NEGATIVE (NEGATIVE); KETONE NEGATIVE (NEGATIVE); NITRITE NEGATIVE (NEGATIVE); PROTEIN NEGATIVE (NEGATIVE); SPECIFIC GRAVITY 1.015 (1.005-1.020); UROBILINOGEN NORMAL (NORMAL)
[2019-03-03] VITALS (37 sets, daily range): BP systolic 95–148; BP diastolic 45–96
--- NOTE | 2019-03-03 04:28 | NUR ---
CALLED LAB TO HAVE THE DRAW PATIENT AM LABS EARLY. TOLD THEY WILL LOOK INTO IT.
[2019-03-03 06:04] LABS: BASOPHILS 0 % (0-2); EOSINOPHILS 0 % (0-7); HEMATOCRIT 47.5 % (42.0-54.0); HEMOGLOBIN 15.8 g/dL (13.5-17.5); IMMATURE GRANULOCYTES 0.3 % (0-5); LYMPHOCYTES 6.5 % (15-50); MCH 31.1 pg (26.0-34.0); MCHC 33.3 g/dL (31.0-37.0); MCV 93.5 fL (80.0-100.0); MEAN PLATELET VOLUME 12.1 fL (7.4-10.4); MONOCYTES 6.1 % (2-11); NEUTROPHILS 87.1 % (40-80); PLATELET COUNT 172 10x3/uL (130-400); RBC 5.08 10x6/uL (4.20-6.10); WBC 9.3 10x3/uL (4.8-10.8)
[2019-03-03 06:25] LABS: CALC OSMOLALITY 291 mosm/kg (275-300); CALCIUM 9.3 mg/dL (8.5-10.1); CARBON DIOXIDE 28.1 mmol/L (21.0-32.0); CHLORIDE - SERUM 106 mmol/L (98-107); CREATININE - SERUM 0.7 mg/dL (0.6-1.3); GLUCOSE 172 mg/dL (74-106); MAGNESIUM - SERUM 2.3 mg/dL (1.8-2.4); PHOSPHOROUS 3.1 mg/dL (2.5-4.9); POTASSIUM - SERUM 4.4 mmol/L (3.5-5.1); SODIUM 141 mmol/L (136-145); UREA NITROGEN 33 mg/dL (7-18); eGFR NON AFRICAN AMERICAN > 90 mL/min (90-120)
--- NOTE | 2019-03-03 08:03 | NUR ---
PT ALREADY IN SURGERY
--- NOTE | 2019-03-03 08:48 | EC ---
PATIENT:AYALA GREENBERG DATE OF SERVICE: 02/26/19 SEX: M MEDICAL RECORD: [id number] DATE OF : [birth year] LOCATION:D.M2 D.212 AGE OF PATIENT: 63 ADMISSION DATE: 02/26/19 REFERRING PHYSICIAN: INTERPRETING PHYSICIAN: CASE FUENTES MD ECHOCARDIOGRAM REPORT ECHO CHARGES 4 ECHO COMPLETE Date: 02/27/19 CLINICAL DIAGNOSIS: SOB/EDEMA/ELEVATED PRO BNP ECHOCARDIOGRAPHIC MEASUREMENTS (adult normal given) AC root (d.<3.7cm) 2.5 cm LV Septum d (<1.2 cm> 1.5 cm Valve Excursion 0.5 cm LV Septum (systole) 1.8 cm Left Atria (s.<4.0cm> 4.0 cm LVPW d(<1.2cm) 1.4 cm RV (d.<2.3cm) 2.1 cm LVPW (sytole) 2.3 cm LV diastole(<5.6CM) 7.0 cm MV E-F(>70mm/sec) cm LV systole 5.0 cm LVOT Diameter 1.9 cm MV exc.(>10mm) cm Est.ejection fraction (50-75%) % DOPPLER: LVIT cm/sec A 66.0 cm/sec E 158 cm/sec LA cm/sec RVSP 18.1 mmHg LVOT 90.0 cm/sec AOP1/2T m/s Asc. Ao 349 cm/sec RVOT 83.0 cm/sec RA cm/sec PA 101 cm/sec AV Gradient Peak 49.0 mmHg AV Mean 32.1 mmHg AV Area 0.7 cm MV Gradient Peak 8.2 mmHg MV Mean 2.2 mmHg MV Area cm COMMENTS: Checkout Operator: Sharyn HOUSEOE Instructional Resource Teacher: 3 Dr. Domínguez TAPE# PACS Pericardial Effusion N DATE OF SERVICE: Adequate 2D, color flow imaging, spectral Doppler, and M-Mode. LVH is present. LV internal dimensions are normal. LV is globally hypokinetic, EF reduced 30% to 35%. Aortic valve may be bicuspid with restriction of leaflet motion. Peak gradient of 49 mmHg. Calculated aortic valve area is 7 cm-squared putting this in opbutycd-vr-buwhkn range. The left atrium is normal. Mitral valve shows no prolapse. Trace MR. Right-sided chambers grossly normal. Trace TR. ECHOCARDIOGRAM REPORT [id number] AYALA GREENBERG TRANSINT:[id number] Voice Confirmation ID: [id number] DOCUMENT ID: [id number] CASE FUENTES MD at 0848 CC: [id number] DICTATION DATE: 02/28/19 1017 DRIVER/REFUSE COLLECTOR: 02/28/19 1057 ADM IN [facility] [address] [place] [id number]
--- NOTE | 2019-03-03 08:49 | CN ---
PATIENT NAME:AYALA GREENBERG MEDICAL RECORD: [id number] : 55 LOCATION:D. D.2124 ADMIT DATE: 02/26/19 ACCOUNT: [id number] CONSULTING PHYSICIAN: CASE FUENTES MD REFERRING PHYSICIAN: KHADAR ADAN MD DATE OF CONSULTATION: 03/01/2019 HISTORY OF PRESENT ILLNESS: A 63-year-old gentleman with no known cardiovascular history. He has a history of obstructive pulmonary disease. By his report, longstanding murmur, hypertension, hyperlipidemia, admitted with increasing shortness of breath. Over the past 6-10 days, some lower extremity edema. We were asked to see him concerning cardiac status. PAST MEDICAL HISTORY: 1. History of diabetes mellitus. 2. Hypertension. 3. Hyperlipidemia. 4. Obstructive pulmonary disease. ALLERGIES: PENICILLIN. MEDICATIONS: Typically include DuoNeb q.i.d., iron supplementation, lisinopril 20 mg p.o. day, simvastatin 40 every day, Haldol 100 mg q. 4 weeks, Voltaren 75 b.i.d., Clozaril 25 mg p.o. at bedtime, HCTZ 25 daily, and metformin 1 gram b.i.d. SOCIAL HISTORY: Smokes about a pack a day. Works from home. Does try to walk 3-4 times a week. REVIEW OF SYSTEMS: The patient reports easy bruising but reports no swollen glands. The patient reports no fever, no night sweats, no significant weight gain, no significant weight loss. No significant exercise tolerance. The patient reports no dry eyes, no irritation, no vision change. Patient reports no difficulty hearing and no ear pain. Patient reports no frequent nose bleeds or nose and sinus problems. Patient reports on arm pain on exertion. No shortness of breath while lying down. No history of heart murmur. Patient reports no cough, no wheezing or coughing up blood. Patient reports no abdominal pain, no vomiting. Normal appetite. No diarrhea and not vomiting blood. No nausea and no constipation. Patient reports no incontinence. No difficulty urinating. No hematuria. No increased frequency. Patient reports no muscle aches. No weakness, no arthralgias, no back pain. No swelling of the extremities. Patient reports no abnormal mole, no jaundice, no rashes. Reports no loss of consciousness. No weakness and no numbness. No seizures, dizziness, or headaches. The patient reports no depression, no sleep disturbance, feeling safe in a relationship and no alcohol abuse. Patient reports on fatigue. Reports no runny nose or sinus pressure. No itching, no hives, and no frequent sneezing. PHYSICAL EXAMINATION: GENERAL: Pleasant gentleman in no acute distress, appears stated age. VITAL SIGNS: Blood pressure 118/71, pulse 79 and regular. HEENT: Normocephalic, atraumatic. NECK: Questionable radiation of murmur versus bilateral bruits. HEART: Regular. A III/ harsh ejection murmur, decreased A2. LUNGS: Diminished breath sounds at both bases. CONSULT REPORT [id number] AYALA GREENBERG ABDOMEN: Soft, nontender. EXTREMITIES: Pulses 2+ with no edema. Echocardiography reviewed. He does have decreased pump function, gradient about 50 mmHg; however, suspect this is closer to critical range. ASSESSMENT AND PLAN: Given his decreased left ventricular function, will start ARB and aldosterone blockade for myopathic process. Diagnostic angiography will be performed to assess for occult underlying coronary artery disease, probably approaching valve replacement at this point in time. Further plans based on above. TRANSINT:[id number] Voice Confirmation ID: [id number] DOCUMENT ID: [id number] CASE FUENTES MD at 0849 CC: [id number] DICTATION DATE: 03/01/19 1011 RUNNER MAN: 03/01/19 1202 ADM IN [facility] [address] [place] [address]
--- NOTE | 2019-03-03 08:49 | OP ---
PATIENT NAME: AYALA GREENBERG MEDICAL RECORD: [id number] :55 LOCATION:D.M2 D.2124 ADMISSION DATE:02/26/19 SURGEON: CASE FUENTES MD DATE OF OPERATION: 03/02/2019 PROCEDURE: Left heart catheterization, selective coronary angiography, right femoral artery approach. CATHETERS: A 5-[place] sheath, 5/4 left and right Alejandro, as well as a Roadrunner wire. Procedure was well tolerated. The patient returned to burkett, sheath removed. ExoSeal device placed. FINDINGS: Left ventriculography in 30-degree KELLY view, severe global hypokinesis, EF estimated at 20% to 25%, has about a 30-mm gradient fjsv-jj-ohho across the aortic valve. CORONARY ANATOMY: LEFT MAIN: Left main is free of disease. LAD: Totally occluded and fills late via both left to left and right to left collaterals. CIRCUMFLEX: Moderate size vessel with 1 terminal OM, has ostial stenosis about 80%. RIGHT CORONARY ARTERY: Right has marked luminal irregularities, but nothing that appears flow restrictive and does supply collaterals to the LAD as well. IMPRESSION: Critical via echo during LV gram. The patient went into AFib, so unable to get a good real-time gradient. EF is down. We will discuss with Dr. Rutherford. Further recommendations based on the above. TRANSINT:[id number] Voice Confirmation ID: [id number] DOCUMENT ID: [id number] CASE FUENTES MD at 0849 CC: [id number] DICTATION DATE: 03/02/19 1008 AUTOMOTIVE GENERAL SALES MANAGER: 03/02/19 1034 ADM IN [place] [id number] [place] [address]
[2019-03-03 09:10] LABS: PROTEIN S - FREE 116 % (57-157); PROTEIN S - TOTAL 90 % (60-150)
[2019-03-03 11:10] LABS: LUPUS - INTERPRETATION Comment: (()); LUPUS - THROMBIN TIME 19.1 sec (0.0-23.0); LUPUS - dRVVT 30.3 sec (0.0-47.0); PROTEIN S - FREE 131 % (57-157); PROTEIN S - FUNCTIONAL 108 % (63-140); PROTEIN S - TOTAL 91 % (60-150); PTT-LA 35.2 sec (0.0-51.9)
[2019-03-03 13:35] LABS: PROTIME 18.9 SECONDS (11.6-15.0)
[2019-03-03 13:37] LABS: INR 1.65 (0.85-1.17)
--- NOTE | 2019-03-03 14:33 | NUR ---
DO NOT WEEN PT OFF THE VENT PER DR JUAREZ.
--- NOTE | 2019-03-03 14:45 | NUR ---
PT ARRIVED IN THE UNIT. PT HOOKED TO ICU MONITORS. PT SEDATED AND ON THE VENT. 8.0 ETT 22 AT THE LIP. RIGHT SWAN SIDNEY NOTED TO THE RIGHT IJ ABOUT 48 CM. MIDSTERNAL DRESSING C/D/I. SUBSTERNAL DRESSING C/D/I WITH CT X2 Y'D TO A SINGLE TUBE LABLED P AND A SINGLE CT LABLED A. BOTH CONNECTED TO 20 H2O SUCTION WITH NO AIR LEAK. LEFT SUBSTERNAL PASTORA DRAIN NOTED COMPRESSED. SUBSTERNAL TUBES NOTED TO HAVE BLOODY DRAINGE. TPM WIRES CONNECTED BUT TPM TURNED OFF PER DR JUAREZ. R RADIAL FAVIOLA NOTED WITH A GOOD WAVE FORM. WRIST PROTECTOR ON. FC WITH CLEAR, YELLOW URINE NOTED. IABP TO RIGHT GROIN NOTED 1:1. RLE HAREVEST SITE NOTED. KOBAN FROM ANKLE TO THIGHT WILL CONT POC.
[2019-03-03 15:09] LABS: BASOPHILS 0 % (0-2); EOSINOPHILS 0 % (0-7); IMMATURE GRANULOCYTES 0.3 % (0-5); LYMPHOCYTES 12.6 % (15-50); MCH 29.9 pg (26.0-34.0); MCHC 32.2 g/dL (31.0-37.0); MCV 92.8 fL (80.0-100.0); MEAN PLATELET VOLUME 10.2 fL (7.4-10.4); MONOCYTES 7.9 % (2-11); NEUTROPHILS 79.2 % (40-80); RDW 13.9 % (11.5-14.5); WBC 9.4 10x3/uL (4.8-10.8)
--- NOTE | 2019-03-03 15:15 | NUR ---
ABG RESULTS RECIEVED. K REPLACED PER ORDERS.
[2019-03-03 15:16] LABS: CALC OSMOLALITY 295 mosm/kg (275-300); CALCIUM 7.9 mg/dL (8.5-10.1); CARBON DIOXIDE 28.9 mmol/L (21.0-32.0); CHLORIDE - SERUM 109 mmol/L (98-107); CREATININE - SERUM 0.8 mg/dL (0.6-1.3); GLUCOSE 167 mg/dL (74-106); SODIUM 144 mmol/L (136-145); UREA NITROGEN 27 mg/dL (7-18); eGFR NON AFRICAN AMERICAN > 90 mL/min (90-120)
[2019-03-03 15:17] LABS: HEMATOCRIT 29.8 % (42.0-54.0); HEMOGLOBIN 9.6 g/dL (13.5-17.5); PLATELET COUNT 115 10x3/uL (130-400); POTASSIUM - SERUM 3.3 mmol/L (3.5-5.1); RBC 3.21 10x6/uL (4.20-6.10)
[2019-03-03 15:22] LABS: ALBUMIN 2.8 g/dL (3.4-5.0); ALKALINE PHOSPHATASE 51 U/L (46-116); ALT (SGPT) 35 U/L (10-68); BILIRUBIN - TOTAL 1.18 mg/dL (0.2-1.3)
[2019-03-03 15:24] LABS: PROTEIN - SERUM 5.1 g/dL (6.4-8.2)
[2019-03-03 15:31] LABS: INR 1.35 (0.85-1.17); PROTIME 16.1 SECONDS (11.6-15.0)
[2019-03-03 15:40] LABS: APTT 30.5 SECONDS (22.8-39.4)
--- NOTE | 2019-03-03 15:45 | NUR ---
DR TIDWELL AT THE PTS BEDSIDE.
--- NOTE | 2019-03-03 17:10 | NUR ---
DR JUAREZ AT THE PTS BEDSIDE. HE ADVANCE THE IABP AND RESUTURED. REDRESSED. WILL CONT POC.
--- NOTE | 2019-03-03 17:53 | NUR ---
BLOOD SENT DOWN TO THE LAB. SEE LAB FLOW SHEET.
--- NOTE | 2019-03-03 18:00 | NUR ---
[address] JUAREZ FOR ABG RESULTS.
--- NOTE | 2019-03-03 19:00 | NUR ---
BEDSIDE REPORT REC'D. ETHYLENE PLANT OPERATOR PER FLOWSHEET. PT SEDATED ON MECH VENT VIA OETT - SEE FLOWSHEET. IVFS INFUSING TO R IJ SWAN-SIDNEY, DSG C/D/I - SEE FLOWSHEET FOR GTT RATES - WILL TITRATE PER MD ORDERS. INCISION AND DSGS NOTED, SUBSTERNAL CT X 3 TO 20CM SXN, NO AIR LEAK NOTED, L CT TO PASTORA, BULB SXN, BLOODY DRAINAGE NOTED. CRITICORE LEAL PATENT. R GROIN IABP SITE WITH DSG C/D/I - SEE HOURLY FLOWSHEET. PEDAL PULSES STRONG. R RADIAL A-LINE, FLUSHED AND ZEROED WITH GOOD WAVE FORM NOTED. B/L SOFT WRIST RESTRAINTS ON PER ORDER. WILL CONT 1:1 NURSING CARE.
--- NOTE | 2019-03-03 20:00 | NUR ---
NO VISITORS. ORAL CARE AND ROM PROVIDED.
--- NOTE | 2019-03-03 21:12 | NUR ---
K+ NOW 4.2 ON ABG, FIO2 WEANED PER RT.
--- NOTE | 2019-03-03 22:26 | NUR ---
CM WITH OCC PVC NOTED MORE FRQUENT. DR. JUAREZ NOTIFIED. RT NOTIFIED FOR ABG ORDER.
--- NOTE | 2019-03-03 22:36 | NUR ---
ABG RESULTS PROVIDED, NO NEW ORDERS.
--- NOTE | 2019-03-03 23:00 | NUR ---
REASSESSMENT PER FLOWSHEET, NO ACUTE CHANGES.
[2019-03-04] VITALS (97 sets, daily range): BP systolic 98–130; BP diastolic 45–66
--- NOTE | 2019-03-04 02:01 | NUR ---
PT REPOSITIONED FOR COMFORT, ORAL CARE PROVIDED. BACK TO REST EASILY. CM - SR WITH OCC PVC NOTED.
--- NOTE | 2019-03-04 03:10 | NUR ---
REASSESSMENT PER FLOWSHEET. NO ACUTE CHANGES. TITRATING PROPOFOL DOWN PER MD ORDERS. ALARMS ON. CONT 1:1 NURSING CARE.
--- NOTE | 2019-03-04 03:51 | NUR ---
COMPLETED HCG BATH. ORAL CARE, JERMAINE-CARE PROVIDED. GOWN AND LINENS CHANGED WITH PT LOG ROLLED.
--- NOTE | 2019-03-04 04:41 | NUR ---
PCXR DONE LOG ROLLING. AFTER XRAY - SMALL AMT LIGHT PINK/RED OOZING AT IABP DSG NOTED AND MARKED. NO SIGN OF HEMATOMA OR ACTIVE BLEEDING. WILL CONT CLOSE MONITORING.
--- NOTE | 2019-03-04 04:56 | NUR ---
UNABLE TO WEIGHT PT. BED ACCIDENTALLY ZEROED DURING CXR.
[2019-03-04 06:11] LABS: ALBUMIN 2.7 g/dL (3.4-5.0); ALKALINE PHOSPHATASE 45 U/L (46-116); ALT (SGPT) 31 U/L (10-68); BILIRUBIN - TOTAL 0.76 mg/dL (0.2-1.3); CALCIUM 7.9 mg/dL (8.5-10.1); CARBON DIOXIDE 27.9 mmol/L (21.0-32.0); CHLORIDE - SERUM 111 mmol/L (98-107); CREATININE - SERUM 0.7 mg/dL (0.6-1.3); GLUCOSE 169 mg/dL (74-106); MAGNESIUM - SERUM 2.1 mg/dL (1.8-2.4); PROTEIN - SERUM 5.2 g/dL (6.4-8.2); SODIUM 143 mmol/L (136-145); eGFR NON AFRICAN AMERICAN > 90 mL/min (90-120)
[2019-03-04 06:14] LABS: CALC OSMOLALITY 290 mosm/kg (275-300); PHOSPHOROUS 2.2 mg/dL (2.5-4.9); UREA NITROGEN 18 mg/dL (7-18)
--- NOTE | 2019-03-04 06:24 | NUR ---
K+ 4.0 ON AM LAB - COVERAGE PER SS
[2019-03-04 06:37] LABS: BASOPHILS 0 % (0-2); EOSINOPHILS 0 % (0-7); HEMATOCRIT 30.5 % (42.0-54.0); HEMOGLOBIN 9.7 g/dL (13.5-17.5); IMMATURE GRANULOCYTES 0.3 % (0-5); MCH 29.8 pg (26.0-34.0); MCHC 31.8 g/dL (31.0-37.0); MCV 93.6 fL (80.0-100.0); MEAN PLATELET VOLUME 11.3 fL (7.4-10.4); MONOCYTES 7.1 % (2-11); NEUTROPHILS 86.6 % (40-80); PLATELET COUNT 115 10x3/uL (130-400); RBC 3.26 10x6/uL (4.20-6.10); RDW 14.1 % (11.5-14.5); WBC 10.3 10x3/uL (4.8-10.8)
--- NOTE | 2019-03-04 06:38 | NUR ---
SPOKE WITH DR. JUAREZ, STATUS REPORT, AM LABS AND IV GTTS REPORTS. NEW ORDERS REC'D. IABP TO 1:2.
--- NOTE | 2019-03-04 07:06 | NUR ---
SHIFT REPORT RECEIVED. INTUBATED AND SEDATED. IABP TO RIGHT GROIN. SMALL AMOUNT OF PINK DRAINAGE NOTED ON DRESSING. SITE SOFT TO PALPATION. IABP 1:2. PEDAL PULSES 3+ EQUAL ELVIS. MIDSTERNAL INCISION WITH DRESSING C/D/I. SUBTERNAL DRESSING WITH CT X 3, PASTORA DRAIN AND TPM WIRES SECURED IN PLACE. RLE HARVEST SITES COVER WITH COBAN DRESSING. RIJ CORTIS DRESSING C/D/I. ETT SIZE 8.0. SEE FLOWSHEET FOR VENT SETTINGS AND IV DRIPS. WRIST RESTRAINTS IN PLACE. WILL CONTINUE TO MONITOR CLOSELY.
--- NOTE | 2019-03-04 08:48 | NUR ---
DR. JOHN AT [facility]. NO CHANGES TO SEDATION AT THIS TIME. WANTS PATIENT TO REMAIN SEDATED WHILE IABP IS IN PLACE.
--- NOTE | 2019-03-04 09:36 | NUR ---
DRESSING ON RIGHT GROIN CONTINUED TO DRAIN PINK DRAINAGE. REMAINS SOFT TO PALPATION. DR. JUAREZ'S NURSE JOSIE PARSONS NOTIFIED. APPLIED PRESSURE TO SITE FOR 10MIN. WILL CONTINUE TO MONITOR CLOSELY.
[2019-03-04 10:10] LABS: ANGIOTENSIN CONVERTING ENZYME 19 U/L (14-82)
--- NOTE | 2019-03-04 10:45 | NUR ---
CALL RECEIVED FROM DR. JOHN. ORDERED FENTANYL DRIP TO BE INITIATED AT 25MCG/HR. WANTS PT ON LOWEST SEDATION POSSIBLE.
--- NOTE | 2019-03-04 12:19 | NUR ---
PROPOFOL INFUSING AT 30 MCG/KG/MIN. PT MOVING LLE. ATTEMTING TO OPEN EYES. WILL CONTINUE TO MONITOR.
--- NOTE | 2019-03-04 13:10 | NUR ---
Nutrition Follow-up: POD 1 CABG. Pt remains intubated. Wt: 214# Last BM: 02/28 per chart Labs noted: Glu 169, Ca 7.9, Alb 2.7, PO4 2.2 Meds noted: Diprivan, KCl, Solumedrol -If pt remains intubated, rec initiate nutrition support within 24-48 hrs; if TF started, rec Pulmocare @ goal rate of 55 mL/hr (provides 1980 kcal, 83 g protein, 1036 mL H2O). -RD following.
--- NOTE | 2019-03-04 13:21 | NUR ---
CHEST TUBE COLLECTION CHAMBER FULL. NEW CHAMBER CONNECTED TO CHEST TUBES AT THIS TIME. PT RESTING COMFORTABLY. CONTINUES ON DOPAMINE AND DOBUTAMINE. WILL CONTINUE TO MONITOR CLOSELY.
--- NOTE | 2019-03-04 13:29 | NUR ---
DR. TIDWELL AT BEDSIDE.
--- NOTE | 2019-03-04 13:40 | NUR ---
DR. ORTEGA AT BEDSIDE. NO CHANGES MADE AT THIS TIME.
--- NOTE | 2019-03-04 14:22 | NUR ---
Blood collected from central line and sent to lab.
[2019-03-04 14:38] LABS: POTASSIUM - SERUM 4.3 mmol/L (3.5-5.1)
[2019-03-04 14:50] LABS: PHOSPHOROUS 2.8 mg/dL (2.5-4.9)
--- NOTE | 2019-03-04 14:56 | NUR ---
POTASSIUM 4.3 AND PHOSPHATE 2.8 AT RECHECK. VALUES WITHIN NORMAL LIMITS. NO ACTION NEEDED AT THIS TIME.
--- NOTE | 2019-03-04 15:58 | NUR ---
TARAH LITTLE DRESSING CHANGED PER PROTOCOL. STERILE TECHNIQUE USED. PT OPENING EYES AND MOVING LLE. WILL CONTINUE TO MONITOR CLOSELY.
--- NOTE | 2019-03-04 16:20 | NUR ---
CALL RECEIVED FROM ANATOLY ADKINS, PT'S SISTER. NO PASSCODE IN CHART. SHE WAS ABLE TO PROVIDE PT FULL NAME AND DATE OF . WAS TOLD PT WAS STABLE AT THIS TIME BUT COULD NOT PROVIDE FURTHER INFORMATION DUE TO PRIVACY POLICY.
--- NOTE | 2019-03-04 17:31 | NUR ---
DAVID TO CHANGE PROTONIX 40MG PO TO PROTONIX 40MG IV PER DR. ORTEGA.
--- NOTE | 2019-03-04 19:10 | NUR ---
BEDSIDE REPORT REC'D. SEE LAPEL PADDER BLINDSTITCH. PT SEDATED ON MECH VENT VIA OETT - SEE FLOWSHEET. IVF INFUSING TO R IJ SWAN-SIDNEY, DSG C/D/I - SEE IVF FOR GTT TITRATIONS PER MD ORDERS. DSGS/DRAINS PER FLOWSHEET, SUBSTERNAL CT X 3 TO 20CM SXN, NO AIR LEAK NOTED. CRITICORE LEAL PATENT. R GROIN IABP SITE NOTED, 1:2 - SEE FLOWSHEET. PEDAL PULSES 2+, FEET WARM. B/L SOFT WRIST RESTRAINTS ON PER MD ORDER. WILL CONT 1:1 NURSING CARE.
--- NOTE | 2019-03-04 20:00 | NUR ---
NO VISITORS. TITRATING FENTANYL AND DIPRIVAN PER MD ORDER - SEE FLOWSHEET.
--- NOTE | 2019-03-04 23:00 | NUR ---
REASSESSMENT PER FLOWSHEET, NO ACUTE CHANGES. PT WITH EYES OPEN AND GRIMMACING AT PRESENT - COUGHING AGAINST VENT. FENTANYL GTT TITRATED TO 150 MCG/HR AND PRN MORPHINE GIVEN. IABP SITE UNCHANGED, GOOD WAVE FORMS NOTED. WILL CONT 1:1 NURSING CARE.
[2019-03-05] VITALS (99 sets, daily range): BP systolic 97–149; BP diastolic 47–83
--- NOTE | 2019-03-05 | NUR ---
ORAL CARE PROVIDED, PT CALM AT THIS TIME. VSS. NO SIGN OF DISTRESS.
--- NOTE | 2019-03-05 02:00 | NUR ---
CONT Q2H TURN, ORAL CARE. VSS. WILL AROUSE TO NAME, GEM, BACK TO REST EASILY.
--- NOTE | 2019-03-05 03:19 | NUR ---
REASSESSMENT PER FLOWSHEET, NO ACUTE CHANGES. FAINT CRACKLES RUL, PRODUCTIVE COUGH WITH SXN - CLEAR/WHITE SPUTUM. VSS. WILL CONT 1:1 NURSING CARE.
--- NOTE | 2019-03-05 03:45 | NUR ---
BATH AND LEAL CARE DONE. PT BECAME AGITATED, COUGHING AND TRYING TO BED LEGS. TITRATING DIPRIVAN PER MD ORDER.
--- NOTE | 2019-03-05 04:05 | NUR ---
ABGS WNL. PT CALM AT THIS TIME. PCXR DONE.
--- NOTE | 2019-03-05 06:00 | NUR ---
AM LAB DRAWN, NO VISITORS AT THIS TIME.
--- NOTE | 2019-03-05 06:26 | NUR ---
PT GRIMMACING TRYING TO SIT UP, REPOSITIONING NOT EFFECTIVE, PRN MORPHINE GIVEN PER MD ORDER.
[2019-03-05 06:44] LABS: ALBUMIN 2.2 g/dL (3.4-5.0); ALKALINE PHOSPHATASE 42 U/L (46-116); BILIRUBIN - TOTAL 0.48 mg/dL (0.2-1.3); CALC OSMOLALITY 289 mosm/kg (275-300); CALCIUM 8.2 mg/dL (8.5-10.1); CARBON DIOXIDE 28.7 mmol/L (21.0-32.0); CHLORIDE - SERUM 109 mmol/L (98-107); CREATININE - SERUM 0.6 mg/dL (0.6-1.3); GLUCOSE 171 mg/dL (74-106); POTASSIUM - SERUM 4.3 mmol/L (3.5-5.1); PROTEIN - SERUM 5.1 g/dL (6.4-8.2); SODIUM 143 mmol/L (136-145); UREA NITROGEN 14 mg/dL (7-18); eGFR NON AFRICAN AMERICAN > 90 mL/min (90-120)
[2019-03-05 06:45] LABS: ALT (SGPT) 22 U/L (10-68)
--- NOTE | 2019-03-05 07:00 | NUR ---
SHIFT REPORT RECEIVED. PT INTUBATED AND SEDATED. SLIGHTLY RESTLESS. OPENING EYES AND BENDING LEFT LEG. DOES NOT FOLLOW COMMAND. 8.0 ETT TO LIP LINE RIGHT. SWAN SIDNEY CATHETER TO RIJ WITH DRESSING C/D/I. SEE FLOWSHEET FOR DRIPS. MIDSTERNAL DRESSING C/D/I. SUBTERNAL DRESSING C/D/I, CT X 2 TO 20CM SUCTION, TPM WIRES IN PLACE, L PASTORA IN PLACE. LEAL CATHETER NOTED WITH CLEAR YELLOW URINE. RLE HARVEST SITE COVERED WITH COBAN DRESSING. PEDAL PULSES 3+ EQUAL ELVIS. R RADIAL FAVIOLA IN PLACE. SAFETY MEASURES IN PLACE. NURSE AT BEDSIDE. WILL CONTINUE TO MONITOR CLOSELY.
[2019-03-05 08:01] LABS: HEMOGLOBIN 8.1 g/dL (13.5-17.5); MCH 32.5 pg (26.0-34.0); MCHC 34.3 g/dL (31.0-37.0); MCV 94.8 fL (80.0-100.0); MEAN PLATELET VOLUME 11.2 fL (7.4-10.4); WBC 11.9 10x3/uL (4.8-10.8)
[2019-03-05 08:06] LABS: HEMATOCRIT 23.6 % (42.0-54.0); PLATELET COUNT 89 10x3/uL (130-400); RBC 2.49 10x6/uL (4.20-6.10)
[2019-03-05 08:27] LABS: PLATELET ESTIMATE DECREASED
--- NOTE | 2019-03-05 08:48 | NUR ---
DR. ORTEGA NOTIFIED OF LOW H&H 8.1 & 23.6, PLATELETS 89. ORDERED 2UNITS OF PRBC'S TO BE TRANSFUSED, 1 UNIT OF PLATELETS TO BE AVAILABLE, AND IABP TO 1:3.
--- NOTE | 2019-03-05 08:50 | NUR ---
IABP CHANGED TO 1:3 PER ORDERS.
--- NOTE | 2019-03-05 09:13 | NUR ---
1ST UNIT OF PRBC'S INITIATED AT THIS TIME. PT RESTING COMFORTABLY. WILL CONITINUE TO MONITOR CLOSELYL.
--- NOTE | 2019-03-05 09:46 | NUR ---
SUBSTERNAL DRESSING CHANGED PER ORDERS.
--- NOTE | 2019-03-05 10:49 | NUR ---
DR. PÉREZ AT BEDSIDE.
[2019-03-05 11:09] LABS: IMMUNOGLOBULIN E 47 IU/mL (6-495)
--- NOTE | 2019-03-05 11:25 | NUR ---
CT X [address] BY [address] ORTEGA. PROPOFOL INCREASED TO 30MCG/KG/MIN PER DR. BEAN ORDERS. SUBTERNAL DRESSING CHANGED. TPM WIRES SECURED. WILL CONTINUE TO MONITOR CLOSELY.
--- NOTE | 2019-03-05 14:02 | NUR ---
NITRO INITIATED AT 1343. DR. OTREGA NOTIFIED. WANTS TO KEEP PT ON DOBUTAMIN AND DOPAMINE AT THIS TIME. OKAY TO KEEP PT ON NITRO TO CONTROL BP.
[2019-03-05 14:46] LABS: HEMOGLOBIN 9.7 g/dL (13.5-17.5)
[2019-03-05 14:48] LABS: HEMATOCRIT 30.5 % (42.0-54.0)
--- NOTE | 2019-03-05 17:31 | NUR ---
PATIENT IN UNCONTROLLED A-FIB. HIGHEST HR 160S. DR. ORTEGA NOTIFIED. ORDERED 150MG AMIODARONE BOLUS, AMIODARONE DRIP AT 1MG/MIN FOR 6HR THEN 0.5MG/MIN. IF DOES NOT CONVERT IN 30MIN GIVE ANOTHER 150MG AMIODARONE BOLUS. IF PT STILL NOT CONVERTED IN 3HR AFTER SECOND BOLUS CALL DR. ORTEGA AGAIN.
--- NOTE | 2019-03-05 17:58 | NUR ---
AMIODARONE BOLUS GIVEN. AMIODARONE DRIP INITIATED AT 1MG/MIN.
--- NOTE | 2019-03-05 19:00 | NUR ---
REPORT RECEIVED AT BEDSIDE, SHIFT ASSESSMENT COMPLETE PER FLOW SHEET, PT SEDATED ON VENT OPENS EYES, RT IJ CVL WITH SWANS CATH C/D/I, ZEROED ALL HEMODYNAMIC MONITORS, RT RADIAL ART LINE WAVEFORM GOOD, MIDSTERNAL AND SUBSTERNAL DRSG'S C/D/I, RLE [place] sites, PPP, VSS, AFIB ON CM, SCD AND JANN HOSE ON BLE, BED ALARM ON, WILL CONTINUE TO MONITOR
--- NOTE | 2019-03-05 21:00 | NUR ---
MEDS GIVEN PER MAR//ORDERS, NO ACUTE DISTRESS NOTED
--- NOTE | 2019-03-05 23:00 | NUR ---
REASSESSMENT COMPLETE PER FLOW SHEET, NO ACUTE CHANGES NOTED, REPOSITIONED FOR COMFORT, RESTRAINTS REPOSITIONED NO BREAKDOWN NOTED, VSS, ALL DRSG'S C/D/I, WILL CONTINUE TO MONITOR
--- NOTE | 2019-03-05 23:34 | NUR ---
PT CONVERTED TO NSR @ 70bpm
[2019-03-06] VITALS (49 sets, daily range): BP systolic 104–159; BP diastolic 50–556
--- NOTE | 2019-03-06 03:00 | NUR ---
REASSESSMENT COMPLETE SEE FLOW SHEET, NO ACUTE CHANGES OR DISTRESS NOTED, REPOSITIONED FOR COMFORT, VSS NSR ON CM, PT ABLE TO OPEN EYES WITH STEMULI, ALL DRSG'S C/D/I, WILL CONTINUE TO MONITOR
--- NOTE | 2019-03-06 06:00 | NUR ---
CHG BATH AND COMPLETE LINEN CHANGE, CUBSTERNAL DRSG CHANGED PER ORDERS, PT TOLLERATED WELL, NO S/S OF DISTRESS NOTED, VSS, NSR ON CM, WILL CONTINUE TO MONITOR
[2019-03-06 06:10] LABS: ALBUMIN 2.1 g/dL (3.4-5.0); ALKALINE PHOSPHATASE 37 U/L (46-116); ALT (SGPT) 19 U/L (10-68); BILIRUBIN - TOTAL 0.37 mg/dL (0.2-1.3); CALC OSMOLALITY 288 mosm/kg (275-300); CALCIUM 8.1 mg/dL (8.5-10.1); CARBON DIOXIDE 28.5 mmol/L (21.0-32.0); CHLORIDE - SERUM 108 mmol/L (98-107); CREATININE - SERUM 0.5 mg/dL (0.6-1.3); GLUCOSE 184 mg/dL (74-106); SODIUM 142 mmol/L (136-145); UREA NITROGEN 15 mg/dL (7-18); eGFR NON AFRICAN AMERICAN > 90 mL/min (90-120)
[2019-03-06 06:16] LABS: HEMATOCRIT 27.8 % (42.0-54.0); MCH 30.1 pg (26.0-34.0); MCHC 32.4 g/dL (31.0-37.0); WBC 10.8 10x3/uL (4.8-10.8)
[2019-03-06 06:22] LABS: RBC 2.99 10x6/uL (4.20-6.10)
--- NOTE | 2019-03-06 10:05 | NUR ---
NUTRITION F/U PT REMAINS ON VENT, SEDATED. RESPIRATORY AT BEDSIDE, CPAP TRIALS TO START. IF UNABLE TO WEAN FROM VENT, RECOMMEND STARTING PULMOCARE TUBE FEEDS. RD FOLLOWING
--- NOTE | 2019-03-06 10:40 | NUR ---
0700: SEDATED. ASSESSMENT COMPLETE. 0900: DR. HOYOS HERE. NEW ORDERS REC'D. 0945: DR. ORTEGA HERE. NEW ORDERS REC'D. 1000: R MITCHELL SOARES LINE DC'D. MANUAL PRESSURE HELD X 5 MIN. DRESSED WITH 2X2 AND TEGADERM. 1020: Aundrea LITTLE DC'D PER POLICY. 1030: DR JOHN HERE. PLAN FOR CPAP TRIAL TODAY.
--- NOTE | 2019-03-06 10:49 | NUR ---
PLACED ON CPAP. PEEP 8 PS 10 FI02 40%
--- NOTE | 2019-03-06 15:28 | TEE ---
PATIENT:AYALA GREENBERG MEDICAL RECORD: [id number] LOCATION:[place] [address] AGE OF PATIENT: 63 ADMISSION DATE: 02/26/19 SEX: M REFERRING PHYSICIAN: INTERPRETING PHYSICIAN: LEANA GASPAR MD TRANSESOPHAGEAL ECHOCARDIOGRAM Date: 03/03/19 CINDI CHARGE Y INDICATIONS: CABG WITH POSSIBLE AVR PREMEDICATIONS: PATIENT'S RESPONSE PROCEDURE DOPPLER MEASUREMENTS: LVIT LA 4.2 PA 101 RA LVOT 90.0 RVOT 83.0 Asc. Ao 349 AV Gradient Peak 49.0 AV Mean 32.1 AV Area 0.7 MV Gradient Peak 8.2 MV Mean 2.2 MV Area INTERPRETATION: Doppler: 2-D: COLOR FLOW DOPPLER NORMAL SALINE STUDY: MISCELLANOUS: DIAGNOSIS: PLAN: Drying Can Worker:Joel Domínguez Electrical Electronics Engineers: Denise LAKE COMMENTS: DATE OF SERVICE: 03/03/2019 PROCEDURE: Transesophageal echo evaluation of valvular structures during bypass surgery. FINDINGS: 1. Left ventricular chamber size is within normal limits. Left ventricular systolic function is preserved at 45% to 50%. 2. Left atrium, right atrium, and right ventricular chamber size is within TRANSESOPHAGEAL ECHOCARDIOGRAM REPORT [id number] AYALA GREENBERG normal limits. 3. Valvular structures: Aortic valve demonstrates slzczonv-an-[id number] calcific aortic stenosis, valve area calculates 0.9-1.0 cm-squared. The remaining valvular structures have normal structure and motion. 4. Doppler interrogation elsewise reveals mild mitral regurgitation, no other valvular insufficiency or stenosis. 5. No evidence of pericardial effusion or left ventricular thrombus. TRANSINT:[id number] Voice Confirmation ID: [id number] DOCUMENT ID: [id number] at 1528 CC: [id number] DICTATION DATE: 03/04/19 1031 QUALITY AUDITOR: 03/04/19 2246 ADM IN [place] [id number] [place] [address]
--- NOTE | 2019-03-06 15:28 | EC ---
PATIENT:AYALA GREENBERG DATE OF SERVICE: 02/26/19 SEX: M MEDICAL RECORD: [id number] DATE OF : 55 LOCATION:[place] [address] AGE OF PATIENT: 63 ADMISSION DATE: 02/26/19 REFERRING PHYSICIAN: INTERPRETING PHYSICIAN: LEANA RAYGOZA MD ECHOCARDIOGRAM REPORT ECHO CHARGES 5 ECHO LIMITED Date: 03/06/19 CLINICAL DIAGNOSIS: S/P CABG ECHOCARDIOGRAPHIC MEASUREMENTS (adult normal given) AC root (d.<3.7cm) 0 cm LV Septum d (<1.2 cm> 0 cm Valve Excursion 0 cm LV Septum (systole) 0 cm Left Atria (s.<4.0cm> 0 cm LVPW d(<1.2cm) 0 cm RV (d.<2.3cm) 0 cm LVPW (sytole) 0 cm LV diastole(<5.6CM) 0 cm MV E-F(>70mm/sec) 0 cm LV systole 0 cm LVOT Diameter 0 cm MV exc.(>10mm) 0 cm Est.ejection fraction (50-75%) 0 % DOPPLER: LVIT 0 cm/sec A 0 cm/sec E 0 cm/sec LA 0 cm/sec RVSP 0 mmHg LVOT 0 cm/sec AOP1/2T 0 m/s Asc. Ao 0 cm/sec RVOT 0 cm/sec RA 0 cm/sec PA 0 cm/sec AV Gradient Peak 0 mmHg AV Mean 0 mmHg AV Area 0 cm MV Gradient Peak 0 mmHg MV Mean 0 mmHg MV Area 0 cm COMMENTS: LIMITED STUDY FOR EF ONLY Conference And Event Organiser: Sharyn HOUSEOE Agricultural Sales Representative: 1 Dr. Raygoza TAPE# PACS Pericardial Effusion N DATE OF SERVICE: PROCEDURE: Limited echocardiogram for ejection fraction. FINDINGS: Left ventricular chamber size is mildly dilated. Left ventricular systolic function is moderately reduced at 30%. TRANSINT:[id number] Voice Confirmation ID: [id number] DOCUMENT ID: [id number] ECHOCARDIOGRAM REPORT [id number] AYALA GREENBERG LEANA RAYGOZA MD at 1528 CC: [id number] DICTATION DATE: 03/06/19 1234 BLOCK AND CASE MAKER: 03/06/19 1242 ADM IN [address], [place] [address]
--- NOTE | 2019-03-06 19:20 | NUR ---
REPORT REC'D AT BS, PT RESTING ON VENT VIA 8.0 ETT TAPED SECURELY, SEE FLOWSHEET FOR VENT SETTINGS, PT AWAKENS TO VERBAL STIMULI AND TRACKS, BUT DOES NOT FOLLOW COMMANDS AT THIS TIME, MIDSTERNAL DRSG CDI, SUBSTERNAL DRSG CDI TO PREVIOUS CT INSERTION SITES, P/M WIRES CONNECTED BUT P/M NOT ON, RIJ CVL PLASAMLYTE @ 30CC/HR, DOBUTAMINE @ 14.1CC/HR OR 5MCG/KG/MIN, DIPRIVAN @ 20MCG/KG/MIN, AND NEXTERONE @ 0.5MG/MIN OR 16.7CC/HR, LEFT SUBSTERNAL PASTORA DRAIN COMPRESSED WITH SEROSANGUINOUS DRAINAGE, CRITICORE LEAL PATENT DRAINING YELLOW URINE, BILAT TEDS AND SCDS INTACT, RIGHT LEG HARVEST SITES OPEN TO AIR, NO DRAINAGE OR REDNESS NOTED, BILAT SOFT WRIST RESTRAINTS INTACT, SR UP X 2, VISIBLE TO NURSES STATION.
--- NOTE | 2019-03-06 20:00 | NUR ---
SUICIDE RISK SCREENING DUE TO PT BEING SEDATED ON VENTILATOR
--- NOTE | 2019-03-06 21:25 | NUR ---
EVENING MEDS GIVEN, PO MEDS HELD NO OGT ORDERED AND PT SEDATED ON VENT, BP STABLE, RESP RATE 24-27, DIPRIVAN INCREASED TO 30MCG/KG/MIN OR 17.6CC/HR, VSS.
--- NOTE | 2019-03-06 23:10 | NUR ---
REASSESSMENT COMPLETED, ORAL CARE PROVIDED, PT REPOSITIONED IN BED ONTO LEFT SIDE SUPPORTED WITH PILLOWS, TOLERATED WELL, VSS, WILL CONT TO MONITOR CLOSELY FOR CHANGES.
[2019-03-07] VITALS (24 sets, daily range): BP systolic 107–153; BP diastolic 70–83
--- NOTE | 2019-03-07 02:00 | NUR ---
NO CHANGES IN STATUS AT THIS TIME
[2019-03-07 03:06] LABS: FACTOR II DNA ANALYSIS Negative (())
--- NOTE | 2019-03-07 04:45 | NUR ---
COMPLETE CHG AND LINEN CHANGE COMPLETED, DRSG CHANGED TO SUBSTERNAL AREA, BIOPATCHES APPLIED TO P/M WIRE INSERTION SITES, BETADINE OINTMENT TO PREVIOUS CT SITES, COVERED WITH 4X4'S AND LARGE TEGADERM, PT REPOSITIONED UP IN BED, TOLERATED WELL, SR UP X 2, BED IN LOW POSITION.
[2019-03-07 05:21] LABS: HEMATOCRIT 31.1 % (42.0-54.0); HEMOGLOBIN 10.2 g/dL (13.5-17.5); MCH 30.6 pg (26.0-34.0); MCHC 32.8 g/dL (31.0-37.0); MCV 93.4 fL (80.0-100.0); MEAN PLATELET VOLUME 11.3 fL (7.4-10.4); RBC 3.33 10x6/uL (4.20-6.10); RDW 14.2 % (11.5-14.5); WBC 9.9 10x3/uL (4.8-10.8)
[2019-03-07 05:35] LABS: ALBUMIN 2.4 g/dL (3.4-5.0); ALKALINE PHOSPHATASE 50 U/L (46-116); ALT (SGPT) 25 U/L (10-68); BILIRUBIN - TOTAL 0.56 mg/dL (0.2-1.3); CALC OSMOLALITY 290 mosm/kg (275-300); CALCIUM 8.6 mg/dL (8.5-10.1); CARBON DIOXIDE 28.2 mmol/L (21.0-32.0); CHLORIDE - SERUM 106 mmol/L (98-107); CREATININE - SERUM 0.6 mg/dL (0.6-1.3); GLUCOSE 186 mg/dL (74-106); POTASSIUM - SERUM 3.9 mmol/L (3.5-5.1); PROTEIN - SERUM 5.3 g/dL (6.4-8.2); SODIUM 142 mmol/L (136-145); UREA NITROGEN 20 mg/dL (7-18); eGFR NON AFRICAN AMERICAN > 90 mL/min (90-120)
--- NOTE | 2019-03-07 09:46 | NUR ---
0700: AROUSES TO VERBAL STIMULI. FOLLOWS SIMPLE COMMANDS. 0730: PEEP DECREASED TO 5. 0740: DIPRIVAN DECREASED TO 10 MCG/KG/MIN. 0930: DR. HOYOS HERE. DIPRIVAN DECREASED TO 5 MCG/KG/MIN. PLACED ON CPAP 40% PEEP 5 PS 10.
--- NOTE | 2019-03-07 11:15 | NUR ---
1110: EXTUBATED AND PLACED ON O2 VIA NC @ 4 LPM.
[2019-03-07 13:08] LABS: PROTEIN C - ANTIGEN 90 % (60-150); PROTEIN C - FUNCTIONAL 121 % (73-180)
--- NOTE | 2019-03-07 13:15 | NUR ---
UP TO CHAIR WITH ASSISTANCE FROM PT
--- NOTE | 2019-03-07 19:22 | NUR ---
REPORT REC'D AND CARE ASSUMED, PT RESTING IN BED ON O2 @ 2LITERS VIA NC, AWAKE, ALERT, AND ORIENTED X 4, MIDSTERNAL DRSG CDI, RIJ CVL DRSG CDI WITH PLASMALYTE @ 3OCC/HR, NEXTERONE @ 0.5 MG/MIN OR 16.7CC/HR, AND DOBUTAMINE @ 5MCG/KG/MIN OR 14.1CC/HR, SUBSTERNAL DRSG TO PREVIOUS CT SITES AND EXTERNAL P/M WIRES, CDI, LEFT SUBSTERNAL PASTORA DRAIN COMPRESSED WITH SEROSANGUINOUS DRAINAGE, DRSG CDI, CRITICORE LEAL PATENT DRAINING CONCENTRATED URINE, BILAT TEDS/SCDS, RIGHT LEG HARVEST SITES WELL APPROXIMATED, NO DRAINAGE, PPP, PT REQUESTING WATER, SIPS OF WATER PROVIDED, BED IN LOW POSITION, SR UP X 2, CALL LIGHT IN REACH.
--- NOTE | 2019-03-07 20:40 | NUR ---
PT REPOSITIONED UP IN BED AND HOB ELEVATED, EVENING MEDS GIVEN ONE AT A TIME WITH SIPS OF WATER, PT SHOWED NO SIGNS OF DIFFICULTY SWALLOWING, PT DENIES PAIN, STATES "MY CHEST IS SORE", BP STABLE, WILL MONITOR CLOSELY FOR CHANGES.
--- NOTE | 2019-03-07 22:00 | NUR ---
CM-CONTROLLED AFIB AT 97, BP 133/76, PT RESTING QUIETLY IN BED, DR. ORTEGA NOTIFIED, NO NEW ORDERS AT THIS TIME.
--- NOTE | 2019-03-07 23:13 | NUR ---
REASSESSMENT COMPLETED, PT ASKING QUESTIONS ABOUT EQUIPMENT, EXPLAINED TO PT THE REASON FOR MONITORING EQUIPMENT, PT REQUESTING A FAN, FAN IN ROOM TURNED ON FOR PT COMFORT, ASSISTED PT TO REPOSITION IN BED FOR COMFORT, PT DENIES FURTHER NEEDS, SR UP X 2, CALL LIGHT IN REACH.
[2019-03-08] VITALS (24 sets, daily range): BP systolic 108–143; BP diastolic 61–85
--- NOTE | 2019-03-08 00:10 | NUR ---
FSBS 153, 2 UNITS REGULAR INSULIN ADMINISTERED, PT STATES AT THE PLACE HE LIVES THEY GIVE MOTRIN AND SOMETHING FOR SLEEP, EXPLAINED TO PT HE COULD NOT HAVE ANYTHING FOR SLEEP, BUT HE COULD HAVE A PAIN PILL FOR DISCOMFORT, STATES "NO", OFFERED TYLENOL WELL, PT REFUSED, 02 SAT 99% ON 2LITERS WEANED TO 1 LITER AT THIS TIME.
--- NOTE | 2019-03-08 00:29 | NUR ---
PT STATES " I NEED THE TOILET", PT PLACED ON BEDPAN AT THIS TIME, CALL LIGHT IN REACH.
--- NOTE | 2019-03-08 00:40 | NUR ---
PT HAD SMALL LIQUID BROWN STOOL, PT CLEANED AND PARTIAL LINEN CHANGE PROVIDED, PT REPOSITIONED UP IN BED FOR COMFORT, WILL MONITOR FOR CHANGES.
--- NOTE | 2019-03-08 03:14 | NUR ---
REASSESSMENT COMPLETED, NO CHANGES FROM PREVIOUS ASSESSMENT, PT RESTING EYES CLOSED, RESP EVEN AND UNLABORED, VSS.
--- NOTE | 2019-03-08 04:00 | NUR ---
COMPLETE CHG BATH AND LINEN CHANGE PROVIDED, PT'S HAIR WASHED WITH NO RINSE SHAMPOO CAP AND COMBED, DRSG TO SUBSTERNAL AREA CHANGED, BIOPATCHES APPLIED TO P/M INSERTION SITES, OLD CT SITES PAINTED WITH BETADINE COVERED WITH 4X4'S AND TEGADERM X 2 ,PT REPOSITIONED UP IN BED FOR COMFORT, PT DENIES FURTHER NEEDS, SR UP X 2, CALL LIGHT IN REACH.
--- NOTE | 2019-03-08 06:00 | NUR ---
AM LAB DRAWN FROM [facility] AND SENT TO LAB, PT RESTING QUIETLY IN BED, DENIES NEEDS, CALL LIGHT IN REACH.
[2019-03-08 06:42] LABS: ALBUMIN 2.4 g/dL (3.4-5.0); ALKALINE PHOSPHATASE 48 U/L (46-116); BILIRUBIN - TOTAL 0.65 mg/dL (0.2-1.3); CALC OSMOLALITY 289 mosm/kg (275-300); CALCIUM 8.4 mg/dL (8.5-10.1); CARBON DIOXIDE 28.8 mmol/L (21.0-32.0); CHLORIDE - SERUM 108 mmol/L (98-107); CREATININE - SERUM 0.7 mg/dL (0.6-1.3); GLUCOSE 165 mg/dL (74-106); POTASSIUM - SERUM 3.8 mmol/L (3.5-5.1); PROTEIN - SERUM 5.4 g/dL (6.4-8.2); SODIUM 143 mmol/L (136-145); UREA NITROGEN 16 mg/dL (7-18); eGFR NON AFRICAN AMERICAN > 90 mL/min (90-120)
[2019-03-08 06:44] LABS: ALT (SGPT) 35 U/L (10-68)
[2019-03-08 06:56] LABS: HEMATOCRIT 31.4 % (42.0-54.0); HEMOGLOBIN 10.3 g/dL (13.5-17.5); MCH 30.4 pg (26.0-34.0); MCHC 32.8 g/dL (31.0-37.0); MCV 92.6 fL (80.0-100.0); MEAN PLATELET VOLUME 10.7 fL (7.4-10.4); RBC 3.39 10x6/uL (4.20-6.10); RDW 14.1 % (11.5-14.5); WBC 9.6 10x3/uL (4.8-10.8)
--- NOTE | 2019-03-08 19:15 | NUR ---
REC'D TO CARE, KILN OPERATOR PER FLOWSHEET. PT AWAKE, ORIENTED, ANSWERS QUESTIONS APPROP. VSS. INCISIONS/DSGS NOTES. R IJ CVL SL'D, DSG C/D/I PT DENIES NEEDS. C/L IN REACH.
--- NOTE | 2019-03-08 20:45 | NUR ---
NO VISITORS. ADMIN PO MEDS PER ORDERS. FRESH WATER AT BS. DENIES OTHER NEEDS.
--- NOTE | 2019-03-08 22:00 | NUR ---
URINAL EMPTIED OF 100ML CLEAR, IRIS URINE.
--- NOTE | 2019-03-08 23:15 | NUR ---
PT SPILLED URINAL. UP TO CHAIR WITH MINIMAL ASSIST. CHG BATH DONE. PT HELPED WITH BATHING. GOWN AND LINENS CHANGED. STERILE DSG CHANGE TO R IJ CVL, NO REDNESS OR SWELLING NOTED AT SITE. BED ZEROED. PT BACK TO BED. ALARMS ON AND C/L IN REACH.
[2019-03-09] VITALS (23 sets, daily range): BP systolic 123–146; BP diastolic 62–89
--- NOTE | 2019-03-09 01:00 | NUR ---
RESTING WITH EYES CLOSED, NO SIGN OF DISTRESS.
--- NOTE | 2019-03-09 03:35 | NUR ---
REASSESSMENT PER FLOWSHEET, NO ACUTE CHANGES. VSS. C/L IN REACH.
[2019-03-09 06:31] LABS: HEMATOCRIT 32.2 % (42.0-54.0); HEMOGLOBIN 10.4 g/dL (13.5-17.5); MCH 30.1 pg (26.0-34.0); MCHC 32.3 g/dL (31.0-37.0); MCV 93.1 fL (80.0-100.0); MEAN PLATELET VOLUME 10.7 fL (7.4-10.4); RBC 3.46 10x6/uL (4.20-6.10); RDW 14.2 % (11.5-14.5)
[2019-03-09 06:48] LABS: ALBUMIN 2.5 g/dL (3.4-5.0); ALKALINE PHOSPHATASE 58 U/L (46-116); CALC OSMOLALITY 280 mosm/kg (275-300); CALCIUM 8.7 mg/dL (8.5-10.1); CARBON DIOXIDE 27.9 mmol/L (21.0-32.0); CHLORIDE - SERUM 105 mmol/L (98-107); CREATININE - SERUM 0.6 mg/dL (0.6-1.3); GLUCOSE 141 mg/dL (74-106); POTASSIUM - SERUM 3.9 mmol/L (3.5-5.1); PROTEIN - SERUM 5.6 g/dL (6.4-8.2); SODIUM 139 mmol/L (136-145); UREA NITROGEN 16 mg/dL (7-18); eGFR NON AFRICAN AMERICAN > 90 mL/min (90-120)
[2019-03-09 06:49] LABS: ALT (SGPT) 68 U/L (10-68)
--- NOTE | 2019-03-09 07:35 | NUR ---
BREAKFAST TRAY PROVIDED TO PATIENT. UP IN CHAIR WATCHING TELEVISION. BREATHING TREATMENT IN PROGRESS.
--- NOTE | 2019-03-09 09:23 | NUR ---
RAMIRO DALTON FROM [facility] CALLED TO CHECK ON PATIENT. AND SEE ABOUT HOW LONG HE WOULD BE IN HOSPITAL. LET HER KNOW IT IS TYPICAL FOR ABOUT 7 DAYS AFTER DATE OF SURGERY. SHE BELIEVES PT WILL NEED REHAB AT DISCHARGE BECAUSE HE COMES TO [facility] 8 HOURS A DAY, AND THEY DONT HAVE FULL-TIME NURSING STAFF. HE WILL NEED TO BE STRONG ENOUGH TO HANDLE SELF. SHE SAYS SHE CAN BE REACHED ON HER CELL AT [phone]. [facility] LINE [phone], [phone]
--- NOTE | 2019-03-09 09:26 | NUR ---
PT UP WALKING WITH PHYSICAL THERAPY WITH WALKER. NO DISTRESS NOTED.
--- NOTE | 2019-03-09 11:00 | NUR ---
20G PIV STARTED TO RIGHT AC. STICK X1
--- NOTE | 2019-03-09 11:43 | NUR ---
DRAIN TO LEFT SUBSTERNAL REMOVED. NO BLEEDING. SITE COVERED WITH GAUZE AND TEGADERM. CENTRAL LINE AT RIGHT IJ REMOVED, TIP INTACT. NO BLEEDING. SITE COVERED WITH GAUZE AND TEGADERM.
--- NOTE | 2019-03-09 12:45 | NUR ---
PT HAD LARGE SOFT BM WHILE SITTING IN CHAIR. ASSISTED TO TOILET AND CLEANED UP. CHG BATH GIVEN. ALL NEW UNDERWEAR AND GOWN. PT RETURNED TO CHAIR. DR CRAIN HAS BEEN BY. DISCUSSED RESTARTING PT HOME MEDICATIONS. WILL LOOK AT CHANGING FSBS FROM Q4 TO ACHS.
--- NOTE | 2019-03-09 12:56 | NUR ---
Nutrition Follow-up: POD 6 CABG. Pt reports eating well. Diet: Diabetic PO intake: 77% avg yesterday Wt: 224.8# Last BM: 03/09 Labs noted: Glu 141, Alb 2.5 Meds noted: Glucophage, Solumedrol, Humulin, Senokot, Colace, KDur -Continue current diet as tolerated. -RD following.
--- NOTE | 2019-03-09 13:16 | OP ---
PATIENT NAME: AYALA GREENBERG MEDICAL RECORD: [id number] :55 LOCATION:[place] ADMISSION DATE:02/26/19 SURGEON: BJ JUAREZ MD DATE OF OPERATION: 03/03/2019 SURGEON: Bj Juarez MD SUPERVISOR ROVING: None. PROCEDURES PERFORMED: 1. Aortic valve replacement (21 mm pericardial bioprosthesis). 2. Coronary artery bypass graft times 2 (left internal mammary artery to LAD, reverse saphenous vein graft from aorta to obtuse marginal). 3. Percutaneous insertion of intra-aortic balloon pump via right common femoral artery. 4. Insertion of right common femoral artery sheath. PREOPERATIVE DIAGNOSES: Cardiomyopathy, aortic stenosis, and coronary artery disease. POSTOPERATIVE DIAGNOSES: Cardiomyopathy, aortic stenosis, and coronary artery disease plus congenital bicuspid aortic stenosis and ischemic cardiomyopathy. ANESTHESIA: General endotracheal anesthesia. ESTIMATED BLOOD LOSS: Total cardiopulmonary bypass with Cell Saver retransfusion, 2 platelets, 4 FFP. COMPLICATIONS: None. CONDITION: Critical. SPECIMENS: None. DISPOSITION: CV ICU. OPERATIVE FINDINGS: 1. Transesophageal echocardiography revealed dilated ischemic cardiomyopathy with ejection fraction 30%, left ventricular end-diastolic dimension greater than 7 cm and 1+ mitral regurgitation. After separation from cardiopulmonary bypass, on low- dose dopamine and dobutamine and intraaortic balloon pump 1:1, ejection fraction was significantly improved 50% to 55% and the end-diastolic dimension about 5 cm with continued eccentric 1+ mitral regurgitation. 2. Open harvest one segment greater saphenous vein, right lower leg. 3. Good quality internal mammary artery. 4. Large dilated heart with left ventricular anteroapical scar and akinesis consistent with previous infarction. 5. LA deep target was severely diseased throughout with anastomosis to a calcified vessel, good Doppler signal after anastomosis, but some bleeding after separation from cardiopulmonary bypass, and not expected to have long-term patency as the LAD mostly supplied anteroapical scar. 5. Obtuse marginal was a 1.5 mm vessel with severe disease. The more distal obtuse marginal that had ostial stenosis was quite small and not grafted. 6. Congenitally bicuspid aortic valve with 180-degree separation of the left and right coronary ostia. OPERATIVE REPORT [id number] AYALA GREENBERG 7. No significant aortic insufficiency by transesophageal echocardiography after separation from cardiopulmonary bypass. 8. Right common femoral artery sheath placed at the beginning of surgery in preparation for possible intra-aortic balloon pump placement and placement of over-a-wire intraaortic balloon pump prior to separation from cardiopulmonary bypass. 9. Evidence of coagulopathy, intraoperative INR 1.7 after FFP transfusion. OPERATIVE INDICATIONS: Ischemic cardiomyopathy, multivessel coronary artery disease, aortic stenosis. OPERATIVE SUMMARY IN DETAIL: The patient was brought to the operating suite. General anesthesia was obtained. Findings of transesophageal echocardiography as above. Greater saphenous vein harvested with a bridging incision in the right lower extremity, side branches were divided with clips. Vessel ligated proximally and distally and removed. Side branches were tied. Leg was later closed in 2 layers including Dermabond. Median sternotomy incision was made. Subcutaneous tissue was divided by electrocautery. Sternum was divided with a saw. Left hemisternum was elevated. Left pleural cavity was entered. Left internal mammary was taken down as a pedicle graft. Sternal retractor was placed. Pericardium was opened. Heparin was given. Aorta was cannulated. Dual-stage venous cannula was inserted. The internal mammary was clipped distally and made ready for anastomosis. After activated clotting time was appropriately elevated, the patient was placed on cardiopulmonary bypass. Sites for distal anastomosis were selected. The left ventricular vent was placed in the right superior pulmonary vein. Retrograde cardioplegic cannula was inserted. Antegrade cardioplegic cannula was inserted. The patient was cooled. Crossclamp was placed. Cardioplegia given antegrade and then retrograde and retrograde cardioplegia was repeated at 20-minute intervals during the cross-clamp time. Distal anastomoses were performed in a standard technique with the vein and later with the internal mammary, the aortotomy was performed. Valve was visualized. Leaflets were removed. Thorough debridement of the calcification of the annulus, the valve was thoroughly irrigated and sized appropriately. Pledgeted valve sutures were placed from ventricular to aortic side, 21 mm of pericardial valve, carefully lowered into place. Sutures were tied. Inspecting through the valve, there was no subvalvular obstruction and an aortotomy was closed. A single aortic punch was performed with 3.5 mm punch and internal mammary anastomosed to the LAD. The patient rewarmed, proximal anastomosis performed. The patient in steep Trendelenburg position, left ventricular apex was de-aired. The crossclamp was removed. The aortic root was de-aired. Proximal anastomosis was tied down. Vein graft was deaired. Bleeding at the distal internal mammary was repaired with sutures. The patient was initially paced with atrial and ventricular pacing wires but resumed a spontaneous rhythm. The right femoral sheath was changed to a balloon pump. The patient from cardiopulmonary bypass and was stable. The patient was decannulated. Aortic cannula site was oversewn. Protamine was given. Thorough irrigation was undertaken. Hemostasis was assured. OPERATIVE REPORT [id number] AYALA GREENBERG Grafts lay appropriately. Drains were placed in the mediastinum, left pleural cavity. Pericardial fat was loosely reapproximated in the midline. The internal mammary harvest site was inspected for bleeding. The left chest was evacuated and irrigated. The sternum was closed with wires. Fascia was closed. Subcutaneous tissue was closed. Skin was closed. Dermabond was placed. The needle and sponge counts were reported as correct. The patient was taken to the ICU. TRANSINT:[id number] Voice Confirmation ID: [id number] DOCUMENT ID: [id number] BJ JUAREZ MD at 1316 CC: LAURIE ROCKWELL and CASE FUENTES MD [id number] DICTATION DATE: 03/03/19 1552 TELEPHONE QUOTATION CLERK: 03/03/19 192 ADM IN [facility] [address] [place] [address]
--- NOTE | 2019-03-09 13:36 | NUR ---
DRESSING AT PREVIOUS LEFT PASTORA DRAIN SITE NOTED TO BE WET. DRESSING REMOVED, NEW DRESSING PLACED.
--- NOTE | 2019-03-09 14:26 | NUR ---
SPOKE WITH DR JUAREZ NURSE ABOUT PT UPDRAFT TREATMENTS AND THE TIMINGS. DR CRAIN HAS ORDERED ADDITIONAL TREATMENTS ASIDE FROM ALBUTEROL. SAYS CAN DC ALBUTEROL ORDER AND FOLLOW BREANN ORDERS.
--- NOTE | 2019-03-09 15:31 | NUR ---
NURSE WALKED BY PT ROOM AND FOUND HIM UP AT WINDOW WITH MONITORING CORDS STRETCHED OUT. ASKED HIM IF I COULD HELP WITH ANYTHING. HE DECLINED. ASSISTED HIM BACK TO CHAIR. PT ACTED LIKE HE WAS CLASPING SOMETHING IN HIS LEFT HAND. ASKED HIM WHAT HE HAD AND WAS TOLD "NOTHING". PT HAD HIS PULSE OX CORD IN HAND I ASKED HIM IF I COULD HAVE THE CORD TO UNTAGLE IT FROM HIM AND AT THAT POINT WAS ABLE TO SEE A CAPSULE. WHEN I ASKED HIM ABOUT IT HE SAID IT WAS FOR HIS BRONCHI DIALATOR. I THEN ASKED HIM TO HAND ME THE MEDICATION AND TOLD HIM IT WASN'T SAFE TO TAKE MEDICATIONS THAT THE HOSPITAL WASN'T GIVING BECAUSE IT COULD INTERACT WITH THE MEDICATIONS WE ARE GIVING HIM. I THEN ASKED HIM IF HE HAD ANY OTHER MEDICATIONS IN HAS BAG, WHICH HE SAID "NO". I THEN ASKED HIM IF I COULD LOOK. FOUND AN EMPTY BLISTER PACKAGE OF OTC STACKER3 DIET AND ENGERGY SUPPLEMENT. I ASKED THE PATIENT IF THE PILL CAME FROM THE PACKAGE, TO WHICH HE NODDED. I PLACED THE PINK AND PURPLE CAPSULE BACK IN THE PACKAGE AND TOLD HIM I WOULD PLACE IT IN A BAG AND LOCK IT UP IN HIS MEDICATION CASSETTE.
--- NOTE | 2019-03-09 17:20 | NUR ---
ASSISTED PT UP TO TOILET. HAD ANOTHER BM IN HIS UNDERWEAR. PT INSISTS ON KEEPING THE SOILED UNDERWEAR EVEN THOUGH WE HAVE NO WAY OF WASHING THEM. HAVE PLACED THEM IN A RED BAG IN THE PATIENT'S BATHROOM.
--- NOTE | 2019-03-09 21:58 | NUR ---
PATIENT VOIDED 100ML OF YELLOW URINE IN URINAL. PATIENT DENIES ANY OTHER NEEDS. CALL LIGHT WITHIN REACH, BED IN LOW POSITION.
[2019-03-10] VITALS (16 sets, daily range): BP systolic 112–142; BP diastolic 62–97
--- NOTE | 2019-03-10 01:02 | NUR ---
PATIENT VOIDED APPROX 100ML OF YELLOW URINE IN URINAL WITHOUT ASSIST. CALL LIGHT WITHIN REACH, BED IN LOW POSITION.
--- NOTE | 2019-03-10 06:12 | NUR ---
PATIENT UP TO BATHROOM HAD A BROWN SOFT BM AND VOIDED. PATIENT BACK TO CHAIR. CHG BATH GIVEN. SUBSTERNAL DRESSING CDI. CALL LIGHT WITHIN REACH, BED IN LOW POSITION.
[2019-03-10 06:41] LABS: HEMATOCRIT 35.2 % (42.0-54.0); HEMOGLOBIN 11.6 g/dL (13.5-17.5); MCH 30.5 pg (26.0-34.0); MCV 92.6 fL (80.0-100.0); MEAN PLATELET VOLUME 10.4 fL (7.4-10.4); RBC 3.8 10x6/uL (4.20-6.10); RDW 14.3 % (11.5-14.5); WBC 14.9 10x3/uL (4.8-10.8)
--- NOTE | 2019-03-10 07:00 | NUR ---
REPORT RECEVIEVED FROM THE OFF GOING RN. SEE ASSESSMENT IN THE PTS FLOW SHEET. PT SITTING OOB IN HIS BEDSIDE CHAIR. VSS. PT DENIES PAIN/NEEDS AT THIS TIME. CALL LIGHT IN REACH. WILL CONT POC.
[2019-03-10 07:04] LABS: ALBUMIN 2.7 g/dL (3.4-5.0); ALKALINE PHOSPHATASE 65 U/L (46-116); BILIRUBIN - TOTAL 0.77 mg/dL (0.2-1.3); CALC OSMOLALITY 286 mosm/kg (275-300); CALCIUM 9.3 mg/dL (8.5-10.1); CARBON DIOXIDE 28.9 mmol/L (21.0-32.0); CHLORIDE - SERUM 106 mmol/L (98-107); GLUCOSE 134 mg/dL (74-106); POTASSIUM - SERUM 4.2 mmol/L (3.5-5.1); PROTEIN - SERUM 5.9 g/dL (6.4-8.2); SODIUM 142 mmol/L (136-145); UREA NITROGEN 17 mg/dL (7-18)
[2019-03-10 07:05] LABS: ALT (SGPT) 102 U/L (10-68); CREATININE - SERUM 0.8 mg/dL (0.6-1.3); eGFR NON AFRICAN AMERICAN > 90 mL/min (90-120)
--- NOTE | 2019-03-10 07:48 | NUR ---
DR JUAREZ AT THE PTS BEDSIDE. NO NEW ORDERS AT THIS TIME.
--- NOTE | 2019-03-10 08:00 | NUR ---
PT SOUNDED HIS PRESSURE ALARM. PT STANDING UP AND TRYING TO GO TO THE BATHROOM. CALL LIGHT WAS IN REACH BUT HE DIDNT PRESS IT. EDUCATED THE PT THE IMPORTANCE OF NOT GETTING UP BY HIMSELF. PT ASSISTED TO THE BATHROOM. LARGE BM NOTED. PT DID SELF PERICARE. ASSISTED BACK INTO HIS BEDSIDE CHAIR. ALARM TURNED ON. CALL LIGHT IN REACH. EDUCATED THE PT HOW TO USE CALL LIGHT. WILL CONT POC.
--- NOTE | 2019-03-10 09:12 | NUR ---
PT AMBULATED WITH THE PT UP AND DOWN THE HALLWAY. PT TOLERATED WELL. WILL CONT POC.
--- NOTE | 2019-03-10 10:35 | NUR ---
PT SOUNDED THE CHAIR ALARM AND HAD AN BOWEL INC EPISODE. CALL LIGHT WAS IN REACH OF THE PT. PT ASSISTED TO THE BATHROOM. ROOM CLEANED, PT GIVEN A BEDBATH. FRESH GOWN, SOCKS, AND JANN HOSE APPLIED. PT ASSISTED BACK INTO HIS BEDSIDE CHAIR. JOSIE AT THE PTS BEDSIDE. TPM WIRES PULLED PER DR JUAREZ.
--- NOTE | 2019-03-10 11:00 | NUR ---
REASSESSMENT COMPLETED. SEE FLOW SHEET.
--- NOTE | 2019-03-10 14:06 | NUR ---
PT WANTED TO SPEAK WITH HIS SOCIAL MEDIA DESIGNER. CORNELIUS WITH CASEMANAGEMENT PAGED.
[2019-03-10] MEDS ORDERED: BROVANA15 MCG/2 M INH (15:58)
[2019-03-10] MEDS ORDERED: ATROVENT 0.02%2.5 ML UPD (15:58)
[2019-03-10] MEDS ORDERED: AMIODARONE HCL200 MG PO (15:59)
[2019-03-10] MEDS ORDERED: ASPIRIN EC81 M1 PO (16:00)
[2019-03-10] MEDS ORDERED: PERCOCET 10-321 EAC1 PO (16:00)
[2019-03-10] MEDS ORDERED: SINGULAIR10 MG PO (16:01)
[2019-03-10] MEDS ORDERED: K-DUR20 MEQ PO (16:01)
[2019-03-10] MEDS ORDERED: MUCINEX600 MG PO (16:01)
[2019-03-10] MEDS ORDERED: COLACE100 MG PO (16:02)
[2019-03-10] MEDS ORDERED: HUMULIN REG INJ [BKC SC (16:02)
[2019-03-10] MEDS ORDERED: PREDNISONE20 MG PO (16:02)
[2019-03-10] MEDS ORDERED: PROTONIX40 MG PO (16:02)
--- NOTE | 2019-03-10 18:54 | MORECARE ---
CASE MANAGEMENT DISCHARGE SUMMARY PATIENT: AYALA GREENBERG UNIT: [id number] ADM DATE: 02/26/19 AGE: 63 : 55 SEX: M ROOM/BED: D[facility] AUTHOR: PRIMO,DOC PHYSICIAN: REFERRING PHYSICIAN: KHADAR ADAN MD DATE OF SERVICE: 03/10/19 Discharge Plan Patient Name: AYALA GREENBERG [facility] [facility] 1955 Planned Disposition: Inpatient Rehab Anticipated Discharge Date: 03/02/19 Discharge Date: 03/10/2019 Expected LOS: 4 Initial Reviewer: [email or web address] Initial Review Date: 02/26/2019 Generated: 03/10/19 7:54 pm Comments DCP- Discharge Planning Updated by [id number]: Scarlett Leonard on 03/10/19 5:[address] Patient Name: AYALA GREENBERG Encounter No: [id number] : 1955 Primary Insurance: MEDICARE A & B Anticipated DC Date: 03-02-2019 Planned Disposition: Inpatient Rehab External Planned Provider: : Gume VALLADARES SIGNED 03/10/19 @ [address] [place] [address] notified [facility] that patient will be transferring to rehab later today. Swati concerned patient may need SNF upon discharge from rehab. DCP follow-up note: Patient and family in agreement with discharge plan. No changes to plan. Case management will follow and assist as needed. Scarlett Leonard DCP- Discharge Planning Updated by [email or web address]: Nithin Lopez on 03/02/19 3:[address] Patient Name: AYALA GREENBERG Encounter No: [id number] : 1955 Primary Insurance: MEDICARE A & B Anticipated DC Date: 03-02-2019 Planned Disposition: Inpatient Rehab External Planned Provider: [facility] INPATIENT REHAB DCP follow-up note: CM RECEIVED ORDER FOR INPATIENT PRESCREENING, PLACEMENT AND ASSISTANCE AT DISCHARGE. CM SPOKE TO RIP OF INPATIENT REHAB WHO INFORMED CM THAT THEY WILL CONSIDER PT FOR REHAB AT DISCHARGE. CM RECEIVED CALL FROM RAMIRO MARRUFO RN, OF [facility] WHO HAS TALKED TO NURSING AND THINKS PT WILL NEED REHAB PRIOR TO [facility] RETURN. CM SPOKE TO PT IN ROOM, PT IS WILLING FOR REHAB AT [facility] AT DISCHARGE. PT'S BROTHER CALLED, PT ASKED CM TO SPEAK TO HIM AND TELL HIM THE PLAN. CM SPOKE TO PRIYANK DIONICIO, , WHO IS ALSO IN AGREEEMENT WITH REHAB AT [facility]. IMPORTANT MESSAGE FROM MEDICARE PROVIDED AND EXPLAINED. CM WAITING MEDICAL STABILITY. INPATIENT REHAB AT [facility] WILL SCREEN FOR ADMISSION. Nithin Lopez, CASE MANAGEMENT DCP- Discharge Planning Updated by [id number]: Sabrina Tolbert on 02/27/19 12:[address] DC PLAN: Return to [facility] ANTICIPATED DC NEEDS: Denied known dc needs. CM met with patient to complete initial dc planning assessment. CM educated patient on the CM role and verbal consent given by patient to complete assessment. CM verified patient's address, phone number, and emergency contact phone numbers. Patient lives at [facility] and reports he is able to care for himself. He received assistance with his medications and transportation. He goes to [facility] from [facility]. He is transported to and from via [facility]. At discharge patient plans to return to [facility] and feels this is a safe discharge. CM discussed availability of home health, rehab services, and medical equipment. Patient denied known discharge needs at this time. Transportation provider at discharge will be his shelter case manager Christine @ [phone] . CM will continue to follow and will assist as needed with dc plans/needs. Sabrina Tolbert RN, [facility] DCPIA - Discharge Planning Initial Assessment Updated by [id number]: Sabrina Tolbert on 02/27/19 1:47 pm * Is the patient Alert and Oriented? Yes * How many steps to enter\exit or inside your home? None * PCP Arlette Tinoco * [facility] Manages his medications. He is not sure what pharmacy they use. * Preadmission Environment Nursing Home * Facility Name [facility] * ADLs Partial Dependent * Partial ADLs (Assistance needed) Medication Management * Equipment Cane Nebulizer * List name and contact numbers for known caregivers / representatives who currently or will assist patient after discharge: Ramiro Thomas - nurse at [place] - [phone] Christine Beckwith - [employer] - [phone] * Verbal permission to speak to the caregivers and representatives has been obtained from the patient. Yes * Community resources currently utilized None * Additional services required to return to the preadmission environment? No * Can the patient safely return to the preadmission environment? Yes * Has this patient been hospitalized within the prior 30 days at any hospital? No Coverage Notice Reviewer: [email or web address] Betzy Nithin Lopez Notice Issued Date-Time: 03/02/2019 14:30 Notice Type: IM Discharge Notice Notice Delivered To: Patient Relationship to Patient: Fire Extinguisher Repairer Name: Delivery Method: HAND - Hand Delivered Jes Days: Prior Verbal Notification: Recipient Understood Notice: Yes Recipient Signature: Yes Med Rec Note Co-signed by Attending: Coverage Notice Comment: Reviewer: [email or web address] Betzy Leonard Notice Issued Date-Time: 03/09/2019 15:37 Notice Type: Patient Choice Letter Notice Delivered To: Patient Relationship to Patient: Fire Extinguisher Repairer Name: Delivery Method: HAND - Hand Delivered Jes Days: Prior Verbal Notification: Recipient Understood Notice: Yes Recipient Signature: Yes Med Rec Note Co-signed by Attending: Coverage Notice Comment: Reviewer: [email or web address] Betzy Leonard Notice Issued Date-Time: 03/10/2019 16:10 Notice Type: IM Discharge Notice Notice Delivered To: Patient Relationship to Patient: Fire Extinguisher Repairer Name: Delivery Method: HAND - Hand Delivered Jes Days: Prior Verbal Notification: Recipient Understood Notice: Yes Recipient Signature: Yes Med Rec Note Co-signed by Attending: Coverage Notice Comment: Last DP export: 03/02/19 4:00 Patient Name: AYALA GREENBERG Page [id number] at 1854 All edits/amendments must be made on the electronic document DICTATION DATE: 03/10/191853 CANT HOOKER: PAIGE 03/10/191853 RPT#: [id number] DC DATE:03/10/19 STATUS: DIS IN [facility] [address] [place] [address] END OF REPORT
== END 2019-03-10 16:40 | DRG 216 ==
LOC: D.ER 19:30 → D.CVICU 21:59 → D.M2 21:59 → D.CVICU 03-03 11:56
PROVIDERS: Family Medicine; Internal Medicine Cardiovascular Disease; Internal Medicine Hematology & Oncology; Internal Medicine Interventional Cardiology; Internal Medicine Pulmonary Disease; Thoracic Surgery (Cardiothoracic Vascular Surgery); ADMIT Family Medicine Adult Medicine; ATTEND Family Medicine Adult Medicine
PROC: B2111ZZ Fluoroscopy of Multiple Coronary Arteries using Low Osmolar Contrast (ICD-10-PCS; 2019-03-02)
PROC: B2151ZZ Fluoroscopy of Left Heart using Low Osmolar Contrast (ICD-10-PCS; 2019-03-02)
PROC: 4A023N7 Measurement of Cardiac Sampling and Pressure, Left Heart, Percutaneous Approach (ICD-10-PCS; 2019-03-02)
PROC: 02100Z9 Bypass Coronary Artery, One Artery from Left Internal Mammary, Open Approach (ICD-10-PCS; 2019-03-03)
PROC: 021009W Bypass Coronary Artery, One Artery from Aorta with Autologous Venous Tissue, Open Approach (ICD-10-PCS; 2019-03-03)
PROC: 06BP0ZZ Excision of Right Saphenous Vein, Open Approach (ICD-10-PCS; 2019-03-03)
PROC: 5A1221Z Performance of Cardiac Output, Continuous (ICD-10-PCS; 2019-03-03)
PROC: B245ZZ4 Ultrasonography of Left Heart, Transesophageal (ICD-10-PCS; 2019-03-03)
PROC: 5A1945Z Respiratory Ventilation, 24-96 Consecutive Hours (ICD-10-PCS; 2019-03-03)
PROC: 02RF08Z Replacement of Aortic Valve with Zooplastic Tissue, Open Approach (ICD-10-PCS; principal; 2019-03-03 07:30)
DX: I35.0 Nonrheumatic aortic (valve) stenosis (principal); J96.01 Acute respiratory failure with hypoxia; I50.23 Acute on chronic systolic (congestive) heart failure; J44.1 Chronic obstructive pulmonary disease with (acute) exacerbation; I82.443 Acute embolism and thrombosis of tibial vein, bilateral; G72.81 Critical illness myopathy; E11.65 Type 2 diabetes mellitus with hyperglycemia; I11.0 Hypertensive heart disease with heart failure; K21.9 Gastro-esophageal reflux disease without esophagitis; E78.5 Hyperlipidemia, unspecified; F20.9 Schizophrenia, unspecified; I48.91 Unspecified atrial fibrillation; I25.10 Atherosclerotic heart disease of native coronary artery without angina pectoris; Z99.81 Dependence on supplemental oxygen

== ENCOUNTER 2019-03-10 16:38 | Inpatient (IN) | payer MEDICARE ==
[~2019-03-10] VITALS: Ht 188 cm; Wt 104.8 kg
--- NOTE | ~2019-03-10 | RHP ---
PATIENT: AYALA GREENBERG MEDICAL RECORD: [id number] ACCOUNT: [id number] [facility] : [birth year] ADMISSION DATE: 03/10/19 REHABILITATION HISTORY AND PHYSICAL EXAMINATION POST ADMISSION PHYSICIAN EXAMINATION ADMITTING DIAGNOSIS: Critical illness myopathy. HISTORY OF PRESENT ILLNESS: The patient is a 63-year-old gentleman who has got a history of hypertension, COPD, chronic CPAP use, diabetes, schizophrenia, reflux. He is a resident at [facility]. He apparently presented to the ED on 02/26/2019 with shortness of breath and hypoxia requiring BiPAP. He reported that his symptoms had developed slowly with shortness of breath and was diaphoretic. Cardiology was consulted. He had a heart cath done on 03/02/2019 and found to have critical aortic stenosis. The patient went into AFib, so was unable to get a good real-time grading at that time. His EF was noted to be decreased. He had cardiovascular surgery consult on 03/03/2019 and underwent an aortic valve replacement, coronary artery bypass grafting times 2 with a left internal mammary to the LAD and the reverse saphenous vein graft from the aorta to the obtuse marginal, percutaneous insertion of an intraaortic balloon pump was done. The patient had a diagnosis of cardiomyopathy, aortic stenosis, coronary artery disease, plus a congenital bicuspid aortic stenosis and ischemic cardiomyopathy. He remained in the CV ICU. He slowly recovered. He has been seen by pulmonary throughout his stay and oncology and hematology secondary to history of bilateral DVTs. He is currently on telemetry. He is on electrolyte protocol. He has got respiratory therapies. He is on pain control, acute blood loss anemia, deconditioning, proximal muscle weakness, debility, impaired mobility, gait disturbance, fall risk and self-care deficits. These are all barriers to his discharged home. He lives in an [facility] and was independent with his ADLs and mobility using a single point cane. He is currently max assist for ADLs, mod-to-max assist for mobility. He would like to return home at his prior level of functioning or better. COMORBIDITIES: Include acute critical illness myopathy, [id number] systolic heart failure, aortic stenosis, exacerbation of COPD, leukocytosis, diabetes, hypertension, osteoarthritis, schizophrenia, hypoxic renal failure, nicotine dependence, DVT, congenital bicuspid aortic valve, aortic stenosis, ischemic cardiomyopathy and a systolic murmur. PAST MEDICAL HISTORY: Significant for diabetes, hypertension, dyslipidemia, COPD, asthma, chronic BiPAP use, reflux, arthritis and schizophrenia. PAST SURGICAL HISTORY: Includes knee surgery and then a heart surgery. ALLERGIES: PENICILLIN. CURRENT MEDICATIONS: Include Haldol, he takes 100 mg of the injection every 28 days. He is on Calmoseptine, prednisone 20 mg daily. He is on ferrous sulfate 325 daily, aspirin 81 mg daily, metformin 500 mg b.i.d. with meals, Brovana 15 mcg b.i.d., Atrovent 0.5 mg q.i.d., budesonide 0.5 mg b.i.d., Protonix 40 mg daily, on clozapine 50 mg daily, potassium 20 mEq b.i.d., Singulair 10 mg at bedtime, he is on a low-resistant sliding scale with Humalog, guaifenesin 600 mg b.i.d., Colace 100 mg b.i.d., Voltaren 75 mg b.i.d., Cogentin 5 mg at bedtime, amiodarone 200 mg b.i.d., Percocet 10/325 one tab every 4 hours p.r.n., and Brovana 15 mcg b.i.d. HISTORY AND PHYSICAL [id number] AYALA GREENBERG HABITS: Does have a history of tobacco use. FAMILY HISTORY: Noncontributory. SOCIAL HISTORY: The patient hopes to return back to a small group living home and get back to his prior level of functioning. REVIEW OF SYSTEMS: GENERAL: He does complain of weakness and fatigue. HEENT: Denies cold, cough, or congestion. CARDIOVASCULAR: Denies chest pain. PHYSICAL EXAMINATION: VITAL SIGNS: Stable, afebrile. GENERAL: A morbidly obese gentleman in no acute distress upon exam. HEENT: Normocephalic and atraumatic. Mucosa moist. NECK: Supple. No lymphadenopathy. LUNGS: Clear in upper ma. No wheezing, rhonchi or rales. HEART: Regular rate and rhythm. He does have a murmur noted. ABDOMEN: Soft, benign, and nondistended. Positive bowel sounds times 4. EXTREMITIES: No clubbing, cyanosis or edema. The vein area looks good. NEUROLOGIC: He does have noted proximal muscle weakness. LABORATORY DATA: His white count is 16,000, H&H of 11 and 36, and platelet count is 211. His sodium is 138, potassium 3.8, BUN and creatinine of 22 and 0.8 and blood sugar is noted to be 134. ASSESSMENT: This is a 63-year-old gentleman admitted to the rehab with a working diagnosis of critical myopathy status post coronary artery bypass grafting, aortic valve replacement. The patient has potential to make improvement. We instituted the following multidisciplinary therapies including, but not limited to physical, occupational, respiratory, speech, nutritional services, prosthetics and orthotics. Given his complex medical condition and risks for more complications, rehabilitation services cannot be provided at a low level of care such a nursing home facility. PLAN: 1. Admit to [facility] for intensive inpatient therapy to include the following disciplines: A. Physical therapy to improve gait, all transfer skills and bed mobility to a modified independent level. B. Occupational therapy to a modified independent level. C. Case management to assist with discharge planning and placement options. D. Nutrition to assist with nutritional needs. E. Rehabilitation nursing to assist in monitoring the patient's underlying medical conditions and to assist with any type of bowel or bladder management. 2. The patient's current medications and medical care will be continued. 3. The patient will be placed on standard fall precautions. 4. The patient's estimated length of stay is approximately 7-10 days. 5. We will discuss during care team staff meeting this week. TRANSINT:[id number] Voice Confirmation ID: [id number] DOCUMENT ID: [id number] HISTORY AND PHYSICAL [id number] AYALA GREENBERG notes whether there has been none or any medical/functional change since admission: - No change since preadmission screen. RASHEED attests patient continues to be appropriate for IRF: - Continues to be appropriate. CHITRA ROCKWELL MD CC: [id number] DICTATION DATE: 03/11/19849 PLASTIC FRAME INSERTER: 03/11/19949 ADM IN [facility] [address] [place] [id number]
[~2019-03-10 16:38] MED LIST changes: +AMIODARONE HCL200 MG PO; +ASPIRIN EC81 M1 PO; +ATROVENT 0.02%2.5 ML UPD; +BENZTROPINE MESY2 MG PO; +BROVANA15 MCG/2 M INH; +COLACE100 MG PO; +HALDOL5 MG/ML IM; +HUMULIN REG INJ [BKC SC; +K-DUR20 MEQ PO; +LISINOPRIL20 MG PO; +MUCINEX600 MG PO; +PERCOCET 10-321 EAC1 PO; +PREDNISONE20 MG PO; +PROTONIX40 MG PO; +SINGULAIR10 MG PO; +TRELEGY ELLIPT1 EACH INH
--- NOTE | 2019-03-10 20:05 | NUR ---
PATIENT RECEIVED SITTING UP IN BED. VITAL SIGNS DONE. NO C/O PAIN OR DISTRESS. BED LOW. ALARM ON. CALL LIIGHT WITHIN REACH. WILL CONTINUE TO MONITOR.
--- NOTE | 2019-03-10 22:00 | NUR ---
PATIENT SIGNED ADMISSION PAPERS. MEDICATIONS GIVEN. 1 MEDICATION WILL BE BROUGHT FROM HOME. SLEEP MEDICATION NOT IN PYXIS. BED LOW. ALARM ON. CALL LIGHT WITHIN REACH. URINAL EMPTIED 300 CC 0F URINE. WILL CONTINUE TO MONITOR.
[2019-03-10 22:19] VITALS: BMI 29.7
--- NOTE | 2019-03-11 03:39 | NUR ---
PT IS UNABLE TO SLEEP AND REQUESTS PERSONAL HYGIENE PRODUCTS IN ORDER TO SHAVE AND ORAL CARE. PROVIDED ITEMS PER PT REQUESTS AND SET UP AT [facility]. INFORMED PT TO CALL WHEN HE IS FINISHED. PT WAS ALSO FOUND OUT IN THE HALLWAY WITH HIS BELONGINGS TRYING TO FIGURE OUT HOW TO GET OUT SO HE COULD GO HOME. ADVISED PT THAT HE WILL BE STAYING IN REHAB TO GET STRONGER IN ORDER FOR HIM TO GO HOME. PT VERBALIZED UNDERSTANDING.
[2019-03-11 06:32] LABS: CALC OSMOLALITY 280 mosm/kg (275-300); CALCIUM 9.4 mg/dL (8.5-10.1); CARBON DIOXIDE 26.9 mmol/L (21.0-32.0); CHLORIDE - SERUM 104 mmol/L (98-107); CREATININE - SERUM 0.8 mg/dL (0.6-1.3); GLUCOSE 134 mg/dL (74-106); POTASSIUM - SERUM 3.8 mmol/L (3.5-5.1); SODIUM 138 mmol/L (136-145); eGFR NON AFRICAN AMERICAN > 90 mL/min (90-120)
[2019-03-11 06:34] LABS: UREA NITROGEN 22 mg/dL (7-18)
[2019-03-11 06:58] LABS: BASOPHILS 0.1 % (0-2); EOSINOPHILS 0 % (0-7); HEMATOCRIT 36.2 % (42.0-54.0); HEMOGLOBIN 11.9 g/dL (13.5-17.5); LYMPHOCYTES 8.7 % (15-50); MCH 30.4 pg (26.0-34.0); MCHC 32.9 g/dL (31.0-37.0); MCV 92.3 fL (80.0-100.0); MEAN PLATELET VOLUME 10.8 fL (7.4-10.4); MONOCYTES 7.6 % (2-11); NEUTROPHILS 81.6 % (40-80); PLATELET COUNT 211 10x3/uL (130-400); RBC 3.92 10x6/uL (4.20-6.10); RDW 14.4 % (11.5-14.5); WBC 16.4 10x3/uL (4.8-10.8)
--- NOTE | 2019-03-11 07:57 | NUR ---
ALERT AND ORIENTED. NO DISTRESS NOTED. CL IN REACH. RESP EVEN AND UNLABORED. WAITING FOR BREAKFAST.
[2019-03-11 08:04] VITALS: BP 149/88
--- NOTE | 2019-03-11 08:09 | NUR ---
SHOWER PER OT.
--- NOTE | 2019-03-11 12:35 | NUR ---
ALERT AND ORIENTED. NO C/O PAIN. PARTICIPATED IN THERAPY TODAY.
[2019-03-11 14:14] VITALS: Ht 188 cm; Wt 104.8 kg
--- NOTE | 2019-03-11 16:05 | NUR ---
NO CHANGE IN ASSESSMENT. WAITING IN WC. NO C/O PAIN. CL IN REACH.
--- NOTE | 2019-03-11 19:13 | NUR ---
GREETED PATIENT AND INTRODUCED MYSELF HIS NURSE. PATIENT IS LAYING IN BED WATCHING TV AT THIS TIME. RESPIRATIONS EVEN. NO S/S OF DISTRESS. DENIES ANY NEEDS AT THIS TIME. CALL LIGHT IN REACH.
[2019-03-11 19:30] VITALS: BP 139/89
--- NOTE | 2019-03-12 02:15 | NUR ---
PT. AWAKE LAYING IN BED WATCHING TV. RESPIRATIONS EVEN. NO S/S OF DISTRESS. DENIES ANY NEEDS AT THIS TIME. CALL LIGHT IN REACH.
--- NOTE | 2019-03-12 06:34 | NUR ---
PT. AWAKE AND WATCHING TV. DENIES ANY NEEDS AT THIS TIME. CALL LIGHT IN REACH.
--- NOTE | 2019-03-12 08:00 | NUR ---
PATIENT IS ALERT/ORIENT. CALL LIGHT WITHIN REACH. VOICES NO NEEDS. WILL CONTINUE WITH PLAN OF CARE
[2019-03-12 08:23] VITALS: BP 146/71
--- NOTE | 2019-03-12 10:10 | NUR ---
PATIENT IN REHAB ROOM. WORKING WITH PHYSICAL THERAPIST. DENIES ANY PAIN/DISC AT THIS TIME.
--- NOTE | 2019-03-12 10:44 | NUR ---
PATIENT PCP IS ERIBERTO ALVES APN AT DR. [place] OFFICE.
--- NOTE | 2019-03-12 12:00 | NUR ---
I have reviewed this patient and I concur with the Shift Assessment completed by the Licensed Practical Nurse today this shift.
--- NOTE | 2019-03-12 12:11 | NUR ---
PATIENT HAS SIGNED A RELEASE OF RESPONSIBILITY FOR BED/CHAIR ALARM. PATIENT US WALKING AROUND ROOM BY SELF. STEADY GAIT
[2019-03-12 19:00] VITALS: BP 120/80
--- NOTE | 2019-03-12 19:16 | NUR ---
GREETED PATIENT AND INTRODUCED MYSELF HIS NURSE. PATIENT IS CURRENTLY SITTING IN CHAIR WEARING SUNGLASSES, CAP AND BACKPACK. RESPIRATIONS EVEN. NO S/S OF DISTRESS. DENIES ANY NEEDS AT THIS TIME. CALL LIGHT IN REACH.
--- NOTE | 2019-03-13 00:36 | NUR ---
PT. RESTING QUIETLY WITH EYES CLOSED. RESPIRATIONS EVEN. NO S/S OF DISTRESS. CALL LIGHT IN REACH.
[2019-03-13 06:20] LABS: CALC OSMOLALITY 281 mosm/kg (275-300); CARBON DIOXIDE 24.4 mmol/L (21.0-32.0); CHLORIDE - SERUM 107 mmol/L (98-107); CREATININE - SERUM 0.8 mg/dL (0.6-1.3); GLUCOSE 124 mg/dL (74-106); POTASSIUM - SERUM 4.1 mmol/L (3.5-5.1); SODIUM 140 mmol/L (136-145); UREA NITROGEN 18 mg/dL (7-18); eGFR NON AFRICAN AMERICAN > 90 mL/min (90-120)
[2019-03-13 06:46] LABS: BASOPHILS 0.1 % (0-2); EOSINOPHILS 0 % (0-7); HEMATOCRIT 33.7 % (42.0-54.0); IMMATURE GRANULOCYTES 1.3 % (0-5); LYMPHOCYTES 13.7 % (15-50); MCHC 32.6 g/dL (31.0-37.0); MCV 91.8 fL (80.0-100.0); MEAN PLATELET VOLUME 10.4 fL (7.4-10.4); MONOCYTES 6.5 % (2-11); NEUTROPHILS 78.4 % (40-80); PLATELET COUNT 226 10x3/uL (130-400); RBC 3.67 10x6/uL (4.20-6.10); RDW 14.7 % (11.5-14.5); WBC 10.9 10x3/uL (4.8-10.8)
[2019-03-13 08:13] VITALS: BP 135/81
--- NOTE | 2019-03-13 12:30 | NUR ---
SITTING UP IN WC IN ROOM WEARING SUNGLASSES, HIS BACKPACK AND HIS CAP. HE IS EATING LUNCH CURRENTLY AND DENIES NEEDS. CALL LIGHT IN REACH
--- NOTE | 2019-03-13 18:12 | NUR ---
SITTING IN WC IN ROOM WATCHING TV. DENIES NEEDS. HAS TAKEN HIS BACKPACK AND GLASSES OFF. CALL LIGHT IN REACH
--- NOTE | 2019-03-13 19:30 | NUR ---
PT IS SITTING IN A RECLINER IN HIS ROOM. ALERT AND ORIENTED X 3. DENIES ANY PAIN OR DISCOMFORT AT THIS TIME. NO NEEDS VOICED. BSS. STERNAL AND ABD INCISIONS ARE CDI, AND HEALING WELL. CALL LIGHT AND BEDSIDE TABLE ARE WITHIN EASY REACH.
--- NOTE | 2019-03-13 22:24 | NUR ---
PT IS RESTING QUEITLY IN BED WITH EYES CLOSED. RESPS ARE EVEN AND UNLABORED. NO ACUTE DISTRESS NOTED.
--- NOTE | 2019-03-14 01:11 | NUR ---
I have reviewed this patient and I concur with the Shift Assessment completed by the Licensed Practical Nurse today this shift.
--- NOTE | 2019-03-14 05:23 | NUR ---
PT RESTING IN BED WITH EYES CLOSED.
[2019-03-14 08:00] VITALS: BP 123/69
--- NOTE | 2019-03-14 13:18 | NUR ---
SITTING IN ROOM WEARING SUN GLASSES, BALL CAP AND BACKPACK. DENIES NEEDS OR C/O. CALL LIGHT IN REACH
--- NOTE | 2019-03-14 18:22 | NUR ---
STILL SITTING IN CHAIR IN ROOM WEARING BACKPACK, SUNGLASSES, BASEBALL CAP. DENIES NEEDS OR C/O. CALL LIGHT IN REACH
--- NOTE | 2019-03-14 19:45 | NUR ---
PATIENT RECEIVED SITTING UP IN BED WATCHING TV. ASSESSMENT & VITAL SIGNS DONE. NO C/O PAIN OR DISTRESS. BED LOW. CALL LIGHT WITHIN REACH. WILL CONTINUE TO MONITOR.
[2019-03-14 19:59] VITALS: BP 131/80
--- NOTE | 2019-03-14 23:48 | NUR ---
I have reviewed this patient and I concur with the Shift Assessment completed by the Licensed Practical Nurse today this shift.
--- NOTE | 2019-03-15 04:57 | NUR ---
PATIENT EYES CLOSED. RESPIRATIONS 18 & EVEN. BED LOW. CALL LIGHT WITHIN REACH. WILL CONTINUE TO MONITOR.
[2019-03-15 08:00] VITALS: BP 122/68
--- NOTE | 2019-03-15 12:50 | NUR ---
LAYING IN BED ON LEFT SIDE. REFUSES TO NOT LAY ON LEFT SIDE. ALSO REFUSED TO PUT TEDS ON BLE. IS PLEASANT AND COOPERATIVE. STILL WEARING GLASSES, HAT AND BACKPACK MOST OF THE TIME. CALL LIGHT IN REACH
--- NOTE | 2019-03-15 19:25 | NUR ---
PT LYING ON BACK WATCHING TV. CL IN REACH. DENEIS NEEDS AT THIS TIME. BED IN LOW SIDE RAILS X2. A/O X4. LUNGS CLEAR. BOWEL ACTIVE X4. RESP EVEN AND UNLABORED. WILL CONTINUE TO MONITOR.
[2019-03-15 20:34] VITALS: BP 150/81
--- NOTE | 2019-03-16 02:38 | NUR ---
I have reviewed this patient and I concur with the Shift Assessment completed by the Licensed Practical Nurse today this shift.
[2019-03-16 06:26] LABS: CALC OSMOLALITY 284 mosm/kg (275-300); CALCIUM 9.2 mg/dL (8.5-10.1); CARBON DIOXIDE 27.7 mmol/L (21.0-32.0); CHLORIDE - SERUM 104 mmol/L (98-107); CREATININE - SERUM 0.8 mg/dL (0.6-1.3); GLUCOSE 101 mg/dL (74-106); POTASSIUM - SERUM 4.3 mmol/L (3.5-5.1); SODIUM 141 mmol/L (136-145); UREA NITROGEN 24 mg/dL (7-18); eGFR NON AFRICAN AMERICAN > 90 mL/min (90-120)
[2019-03-16 06:28] LABS: BASOPHILS 0.1 % (0-2); EOSINOPHILS 0 % (0-7); HEMATOCRIT 35.5 % (42.0-54.0); HEMOGLOBIN 11.6 g/dL (13.5-17.5); IMMATURE GRANULOCYTES 0.7 % (0-5); LYMPHOCYTES 13.4 % (15-50); MCH 30.3 pg (26.0-34.0); MCHC 32.7 g/dL (31.0-37.0); MCV 92.7 fL (80.0-100.0); MEAN PLATELET VOLUME 10.4 fL (7.4-10.4); MONOCYTES 6.5 % (2-11); NEUTROPHILS 79.3 % (40-80); PLATELET COUNT 243 10x3/uL (130-400); RBC 3.83 10x6/uL (4.20-6.10); RDW 15.1 % (11.5-14.5); WBC 13.5 10x3/uL (4.8-10.8)
--- NOTE | 2019-03-16 10:25 | NUR ---
SITTING IN ROOM WEARING HAT, SUNGLASSES, BACKPACK AND CARRYING HIS WALKING CANE WITH HIM. HE IS PLEASANT AND COOPERATIVE. DENIES INREASED PAPIN. CALL LIGHT IN REACH
--- NOTE | 2019-03-16 13:21 | NUR ---
WALKING AROUND IN THERAPY GYM. WEARS SUNGLASSES AND USES CANE. SMALL AMOUNT OF BLOODY DRAINAGE NOTED FROM HARVEST SITES TO LOWER EXTREMITY
--- NOTE | 2019-03-16 14:47 | NUR ---
Nutrition Follow-up: Diet: Cardiac/Diabetic PO intake: 75-100% x all meals. Reports good appetite. Last BM: 03/15/19. WT: 231# (03/11/19) Significant meds: prednisone, metformin, SSI. Labs reviewed. Continue current nutrition regimen. RD following.
--- NOTE | 2019-03-16 16:10 | NUR ---
SITTING UP IN ROOM. DENIES NEEEDS OR C/O. CALL LIGHT IN REACH
[2019-03-16 19:29] VITALS: BP 119/62
--- NOTE | 2019-03-16 19:36 | NUR ---
PATIENT RECEIVED LAYING IN BED WATCHING TV. VITAL SIGNS & ASSESSMENT DONE. BED LOW. CALL LIGHT WITHIN REACH. WILL CONTINUE TO MONITOR.
--- NOTE | 2019-03-17 03:37 | NUR ---
PATIENT EYES CLOSED. RESPIRATIONS 18 & EVEN. BED LOW. CALL LIGHT WITHIN REACH. WILL CONTINUE TO [facility].
[2019-03-17 08:00] VITALS: BP 147/82
--- NOTE | 2019-03-17 08:41 | NUR ---
PT AM MEDS ADMINISTERED. PT DENIES NEEDS. WCTM.
--- NOTE | 2019-03-17 12:15 | NUR ---
4 UNITS SS INSULIN GIVEN FOR FSBS 225. PT EATING LUNCH, DENIES NEEDS. WCTM.
--- NOTE | 2019-03-17 15:04 | NUR ---
SPOKE WITH PATIENT NURSE FROM [facility] AND SHE WILL COME AND ASSESS MR. GREENBERG FOR POSSIBLE SNF PLACEMENT. WILL CONTINUE TO FOLLOW WITH PATIENT.
--- NOTE | 2019-03-17 16:11 | NUR ---
PT FSBS 157. PT REFUSED INSULIN. WCTM.
[2019-03-17 19:24] VITALS: BP 131/68
--- NOTE | 2019-03-17 19:24 | NUR ---
GREETED PATIENT AND INTRODUCED MYSELF HIS NURSE. PATIENT IS SITTING IN RECLINER WATCHING TV AT THIS TIME. RESPIRATIONS EVEN. NO S/S OF DISTRESS. DENIES ANY NEEDS AT THIS TIME. CALL LIGHT IN REACH.
--- NOTE | 2019-03-18 01:38 | NUR ---
PT. AWAKE LAYING IN BED WATCHING TV. RESPIRATIONS EVEN. NO S/S OF DISTRESS. CALL LIGHT IN REACH. DENIES ANY NEEDS AT THIS TIME.
[2019-03-18 06:20] LABS: BASOPHILS 0 % (0-2); EOSINOPHILS 0 % (0-7); HEMATOCRIT 36.8 % (42.0-54.0); HEMOGLOBIN 11.7 g/dL (13.5-17.5); IMMATURE GRANULOCYTES 0.6 % (0-5); LYMPHOCYTES 11.9 % (15-50); MCH 30.1 pg (26.0-34.0); MCHC 31.8 g/dL (31.0-37.0); MCV 94.6 fL (80.0-100.0); MEAN PLATELET VOLUME 10.6 fL (7.4-10.4); MONOCYTES 7.1 % (2-11); NEUTROPHILS 80.4 % (40-80); PLATELET COUNT 246 10x3/uL (130-400); RBC 3.89 10x6/uL (4.20-6.10); RDW 15.5 % (11.5-14.5); WBC 12.6 10x3/uL (4.8-10.8)
[2019-03-18 06:53] LABS: CALC OSMOLALITY 280 mosm/kg (275-300); CALCIUM 9.3 mg/dL (8.5-10.1); CARBON DIOXIDE 27.9 mmol/L (21.0-32.0); CHLORIDE - SERUM 102 mmol/L (98-107); CREATININE - SERUM 0.9 mg/dL (0.6-1.3); GLUCOSE 131 mg/dL (74-106); POTASSIUM - SERUM 4.4 mmol/L (3.5-5.1); SODIUM 138 mmol/L (136-145); UREA NITROGEN 22 mg/dL (7-18); eGFR NON AFRICAN AMERICAN 90 mL/min (90-120)
[2019-03-18 07:46] VITALS: BP 165/80
--- NOTE | 2019-03-18 08:00 | NUR ---
PATIENT IS ALERT/ORIENT. SITTING UP IN CHAIR TO EAT BREAKFAST. CALL LIGHT WITHIN REACH. PLAN IS TO DISCHARGE PATIENT TO SNF TODAY
--- NOTE | 2019-03-18 09:58 | NUR ---
PATIENT DISCHARGING BACK TO HIS [facility]. NO HOME HEALTH OR DME NEEDED AT THIS TIME. ERIBERTO RICHARD 03/24/19 @ 11:30, DR. JUAREZ 04/15/19 @ 11:15, DR. GASPAR 05/07/19 @ 11:20. PATIENT CHOICE FORM AND IMFM FORMS SIGNED, COPY GIVEN TO PATIENT AND FILED IN CHART. DSICHARGE INSTRUCTIONS FAXED TO PCP, REVIEWED WITH PATIENT AND [facility] NURSE.
--- NOTE | 2019-03-18 10:26 | NUR ---
I have reviewed this patient and I concur with the Shift Assessment completed by the Licensed Practical Nurse today this shift.
[2019-03-18] MEDS ORDERED: PERCOCET 10-321 EAC1 PO ×2 (11:28→11:31)
--- NOTE | 2019-03-18 11:49 | NUR ---
DR Tien ROCKWELL INTO SEE PATIENT. NEW ORDERS FOR DISCHARGE WRITTEN
--- NOTE | 2019-03-18 13:39 | NUR ---
PERSONAL FROM [facility] HERE TO PICK PATIENT UP. PATIENT TAKEN OUT TO [facility] BY STAFF
== END 2019-03-18 13:43 | disposition home or self-care (01) | DRG 91 ==
LOC: D.REHAB 16:38
PROVIDERS: ADMIT Emergency Medicine; ATTEND Emergency Medicine
DX: G72.81 Critical illness myopathy (principal); I50.23 Acute on chronic systolic (congestive) heart failure; J96.01 Acute respiratory failure with hypoxia; J44.1 Chronic obstructive pulmonary disease with (acute) exacerbation; I82.409 Acute embolism and thrombosis of unspecified deep veins of unspecified lower extremity; F17.203 Nicotine dependence unspecified, with withdrawal; I11.0 Hypertensive heart disease with heart failure; I35.0 Nonrheumatic aortic (valve) stenosis; D72.829 Elevated white blood cell count, unspecified; E11.9 Type 2 diabetes mellitus without complications; M19.90 Unspecified osteoarthritis, unspecified site; F20.9 Schizophrenia, unspecified; I25.5 Ischemic cardiomyopathy; R01.1 Cardiac murmur, unspecified; K21.9 Gastro-esophageal reflux disease without esophagitis; E78.5 Hyperlipidemia, unspecified

== ENCOUNTER → 2019-06-03 09:59 | Outpatient (CLI) | payer MEDICARE ==
[2019-05-22 08:14] VITALS: BMI 28.1
[~2019-06-03 09:59] MED LIST changes: +LISINOPRIL5 MG PO; +ROCEPHIN 1 GM/D51 G1 IV; +TOPROL XL25 MG PO; +VIBRAMYCIN 100100 MG PO
== END | disposition home or self-care (01) ==
LOC: D.RAD 09:59
PROVIDERS: ATTEND Thoracic Surgery (Cardiothoracic Vascular Surgery)
DX: I97.89 Other postprocedural complications and disorders of the circulatory system, not elsewhere classified (principal)

== ENCOUNTER 2019-06-03 13:58 | Inpatient (IN) | payer MEDICARE ==
[~2019-06-03] VITALS: Ht 188 cm; Wt 106.4 kg
[2019-06-03 14:44] VITALS: BP 169/98; BMI 28.7
--- NOTE | 2019-06-03 14:53 | NUR ---
PATIENT ADMITTED TO ROOM 2225. NO IV D/T ANESTHESIA PLACING TOMORROW PER ORDER. DENIES NEEDS. BED LOW. CALL SPENCE AND PERSONAL ITEMS IN REACH. WILL CONTINUE TO MONITOR.
--- NOTE | 2019-06-03 15:08 | NUR ---
CONSENTS OBTAINED FOR SUBCLAVIAN, ARTERIAL LINE AND EPIDURAL PLACEMENT. DENIES QUESTIONS.
[2019-06-03 15:18] LABS: HEMATOCRIT 43.4 % (42.0-54.0); HEMOGLOBIN 13.7 g/dL (13.5-17.5); MCH 26.9 pg (26.0-34.0); MCHC 31.6 g/dL (31.0-37.0); MCV 85.3 fL (80.0-100.0); MEAN PLATELET VOLUME 10.6 fL (7.4-10.4); RBC 5.09 10x6/uL (4.20-6.10); RDW 15.2 % (11.5-14.5); WBC 9.4 10x3/uL (4.8-10.8)
[2019-06-03 15:26] LABS: APTT 30.5 SECONDS (22.8-39.4); INR 1.01 (0.85-1.17); PROTIME 13.2 SECONDS (11.6-15.0)
[2019-06-03 15:29] LABS: ALBUMIN 3.5 g/dL (3.4-5.0); ALKALINE PHOSPHATASE 91 U/L (30-120); ALT (SGPT) 25 U/L (10-68); BILIRUBIN - TOTAL 0.31 mg/dL (0.2-1.3); CALC OSMOLALITY 287 mosm/kg (275-300); CALCIUM 9.2 mg/dL (8.5-10.1); CARBON DIOXIDE 29.1 mmol/L (21.0-32.0); CHLORIDE - SERUM 108 mmol/L (98-107); CREATININE - SERUM 0.8 mg/dL (0.6-1.3); GLUCOSE 132 mg/dL (74-106); POTASSIUM - SERUM 4.1 mmol/L (3.5-5.1); SODIUM 143 mmol/L (136-145); UREA NITROGEN 16 mg/dL (7-18); eGFR NON AFRICAN AMERICAN > 90 mL/min (90-120)
--- NOTE | 2019-06-03 16:01 | NUR ---
CONSENT OBTAINED FOR PROCEDURE.
--- NOTE | 2019-06-03 16:23 | NUR ---
RIGHT LOWER LEG HAS 4 CHRONIC WOUNDS. THEY ARE HEALING, BUT SLOWLY. #1 WOUND UPPER MOST WOUND ON MENDOZA: 0.6CM X 1CM X 0.3CM #2 JUST BELOW: 1CM X2MC X 0.4CM #3 BELOW #2: 1CM X 2CM X 0.7CM #4 LOWER MOST WOUND: 1.5CM X 2.5CM X 0.7CM #3 AND #4 ARE BEING TREATED WITH WOUND VAC -125MMHG LOW CONTINUOUS. NO BONE, TENDON OR MUSCLE EXPOSED. MODERATE AMOUNT OF SEROSANGUINOUS DRAINAGE WITH NO ODOR. #1 AND #2 COVERED WITH DRY DRESSINGS.
--- NOTE | 2019-06-03 20:00 | NUR ---
ALERT SITTING UP IN CHIAR, DENIES PAIN OR NEEDS AT THIS TIME, SEE SHIFT ASSEMENT, CALL LIGHT IN REACH
[2019-06-03 21:15] VITALS: BP 155/85
[2019-06-04] VITALS (40 sets, daily range): BP systolic 119–158; BP diastolic 74–99; Ht 188 cm; Wt 106.4 kg
--- NOTE | 2019-06-04 07:30 | NUR ---
PATIENT GONE FOR PROCEDURE.
--- NOTE | 2019-06-04 09:13 | NUR ---
AM MEDS NOT GIVEN D/T STILL AT PROCEDURE.
--- NOTE | 2019-06-04 09:50 | NUR ---
0925 - PT ARRIVES TO PACU WITH THE FOLLOWING GTTS ATTACHED - PHENYNEPHRINE (PAUSED), NITROGLYCERIN (PAUSED)
--- NOTE | 2019-06-04 10:07 | NUR ---
PLEUROVAC ATTACHED TO SUCTION PER PHONE CALL FROM BRENNAN IN CVICU, VERIFIED FUNCTIONING
--- NOTE | 2019-06-04 10:16 | NUR ---
1005 - PT READY FOR D/C, NO ROOM YET AVAILABLE IN CVICU. CONVERTING TO PHASE 2 PROTOCOL, VS Q15MIN.
--- NOTE | 2019-06-04 10:46 | NUR ---
REPORT CALLED TO CV ICU.
--- NOTE | 2019-06-04 15:04 | NUR ---
REASSESSMENT COMPLETED. BP 155/95 (115) NTG GTT STARTED AT 5 ML/HR (16.7 MCG/MIN.
[2019-06-04 15:37] LABS: BACTERIA FEW /hpf (NEGATIVE); BILIRUBIN NEGATIVE (NEGATIVE); EPITHELIAL CELLS 0-5 /hpf (0-5); GLUCOSE NEGATIVE (NEGATIVE); KETONE LARGE mg/dL (NEGATIVE); NITRITE NEGATIVE (NEGATIVE); UROBILINOGEN NORMAL (NORMAL); WHITE CELLS - URINE OCC /hpf (NEGATIVE)
[2019-06-04 15:38] LABS: AMORPHOUS SEDIMENT >1+ /lpf (NONE SEEN); GRANULAR CAST RARE /lpf (NONE SEEN)
--- NOTE | 2019-06-04 19:30 | NUR ---
PT A/OX4, O2 @ 2L VIA N/C, LUNGS CLEAR, LEFT TLSC INTACT WITH PLASMLYTE @ 100 CC/HR AND NITRO GTT @ 23 MCG/MIN, LEFT CHEST TUBE INTACT TO 20 CM SUCTION DRAINING CLEAR SEROUS FLUID, LEAL PATENT TO BSD, JANN AND SCD TO LEFT LOWER LEG, WOUND VAC DRSG INTACT TO RIGHT LOWER LEG, VITALS STABLE
--- NOTE | 2019-06-04 21:00 | NUR ---
PT STATES HE TAKES HIS CLOZAPINE AT NIGHT AND IT HELPS HIM SLEEP, CONTACTED PHARMACY, MED NOT AVAILABLE IN HOUSE, CONTACTED PT'S EMERGENCY CONTACT LASHELL, SHE STATES MED IS AT [facility] AND SHE WOULD CONTACT THEM TOMORROW TO BRING UP HERE FOR PT, INFORMED PT, STATES HE WILL TRY TO GO TO SLEEP
--- NOTE | 2019-06-04 23:21 | NUR ---
pt resting quietly on left side, arouses easily with no c/o, will cont to monitor
[2019-06-05] VITALS (32 sets, daily range): BP systolic 103–156; BP diastolic 60–92
--- NOTE | 2019-06-05 01:00 | NUR ---
PT SLEEPING, LAYING ON LEFT SIDE, VITALS STABLE WITH NO DISTRESS
--- NOTE | 2019-06-05 03:15 | NUR ---
PT AWAKE, STATES UNABLE TO SLEEP, WATCHING TV, DRINKS PO FLUIDS WITHOUT DIFFICULTY, WILL CONT TO MONITOR
[2019-06-05 05:15] LABS: HEMATOCRIT 40.2 % (42.0-54.0); HEMOGLOBIN 12.8 g/dL (13.5-17.5); MCH 27.1 pg (26.0-34.0); MCHC 31.8 g/dL (31.0-37.0); MCV 85.2 fL (80.0-100.0); RBC 4.72 10x6/uL (4.20-6.10); RDW 15.2 % (11.5-14.5)
[2019-06-05 05:21] LABS: WBC 13.2 10x3/uL (4.8-10.8)
[2019-06-05 05:33] LABS: ALBUMIN 3.1 g/dL (3.4-5.0); ALKALINE PHOSPHATASE 75 U/L (30-120); BILIRUBIN - TOTAL 0.78 mg/dL (0.2-1.3); CALC OSMOLALITY 281 mosm/kg (275-300); CALCIUM 8.5 mg/dL (8.5-10.1); CARBON DIOXIDE 28.4 mmol/L (21.0-32.0); CHLORIDE - SERUM 105 mmol/L (98-107); CREATININE - SERUM 0.8 mg/dL (0.6-1.3); GLUCOSE 105 mg/dL (74-106); POTASSIUM - SERUM 4.1 mmol/L (3.5-5.1); SODIUM 141 mmol/L (136-145); UREA NITROGEN 14 mg/dL (7-18); eGFR NON AFRICAN AMERICAN > 90 mL/min (90-120)
[2019-06-05 05:37] LABS: ALT (SGPT) 17 U/L (10-68)
--- NOTE | 2019-06-05 05:45 | NUR ---
PT BATHED, DRESSING CHANGED TO LEFT CHEST TUBE, PT SITTING UP IN BED DRINKING COFFEE WITH NO C/O, VITALS STABLE
--- NOTE | 2019-06-05 07:00 | NUR ---
RECEIVED BEDSIDE REPORT ON PATIENT AND ASSUMED CARE. PATIENT AWAKE AND ALERT X 4, WATCHING TV. VSS. CHEST TUBE TO LEFT LATERAL CHEST, TO 20 CM WALL SUCTION, NO AIR LEAK NOTED WITH 80 ML OF SEROUS OUTPUT NOTED. LEAL CATH WITH CLEAR YELLOW UOP 135 ML. IV LEFT SUBCLAVIAN PATENT WITH PLASMOLYTE AT 30 ML/HR AND NTG AT 23.3 MCG/MIN (7 ML/HR). BP 129/78. HR 76 CM - NSR WITH NO ECTOPY NOTED. BBS CLEAR AND EQUAL DIMINISHED IN BASES, RRR - 12/MIN. SPO2 98% ON 2 LPM VIA NC. WOUND VAC TO RIGHT LOWER EXTREMITY IN PLACE. SCD AND JANN HOSE TO LEFT LOWER EXTREMITY. PATIENT WITH GOOD COUGH AND EFFORT. RATES PAIN 3/10, PRN PAIN MED GIVEN PER REQUEST. IV 20 GA TO RIGHT AC, FLUSHES EASILY WITH POSITIVE BLOOD RETURN. HEAD TO TOE ASSESSMENT COMPLETED.
--- NOTE | 2019-06-05 07:47 | NUR ---
PATIENT GIVEN BREAKFAST TRAY. VSS.
--- NOTE | 2019-06-05 08:36 | NUR ---
MORNING MEDS GIVEN PER MAR.
--- NOTE | 2019-06-05 09:22 | NUR ---
PATIENT RESTING QUIETLY. VSS. WEANING DOWN NITROGLYCERIN GTT.
--- NOTE | 2019-06-05 09:33 | NUR ---
NTG GTT DISCONTINUED.
--- NOTE | 2019-06-05 10:02 | NUR ---
Nutrition Follow-up: POD 1 L thoracoscopy, talc pleurodesis, bronch. Tolerated all of clear liquid tray this AM; advanced to diabetic for lunch per nursing. Wt: 238# (06/05) Labs noted: Glu 105, Alb 3.1 Meds noted: Protonix, Humulin -Continue current diet as tolerated. -Monitor wt. -RD following.
--- NOTE | 2019-06-05 10:31 | OP ---
PATIENT NAME: AYALA GREENBERG MEDICAL RECORD: [id number] :55 LOCATION:[id number] ADMISSION DATE:06/03/19 SURGEON: VERONICA RUTHERFORD MD DATE OF OPERATION: 06/04/2019 SURGEON: Veronica Rutherford MD PROCEDURE: Left thoracoscopy with talc pleurodesis and bronchoscopy. PREOPERATIVE DIAGNOSIS: Recurrent left pleural effusion. POSTOPERATIVE DIAGNOSIS: Recurrent left pleural effusion. ANESTHESIA: Double lumen general endotracheal anesthesia. ESTIMATED BLOOD LOSS: None. COMPLICATIONS: None. SPECIMENS: Pleural fluid for triglycerides. FINDINGS: 1000 cc of serous left pleural effusion, initially appeared cloudy. INDICATION: Recurrent pleural effusion. PROCEDURE IN DETAIL: The patient was brought to the operating suite. Double lumen general endotracheal anesthesia was obtained. The patient was placed in the right lateral decubitus position with appropriate padding. Left chest was prepped and draped. One incision was made about the mid axillary line. Pleural cavity was entered. 1000 cc of fluid were removed. Scope was introduced. All areas of the lung were visualized. There were no adhesions noted. 3 grams of talc were aerosolized and instilled. Chest tube was placed. The wound was closed. The patient returned to supine position. Single lumen tube was placed. Bronchoscopy was performed with some endobronchial mucus, but no endobronchial lesions. The wound VAC in the left lower extremity was changed. The upper 2 had good granulation with no significant depth to the wound. They were waiting to epithelialize and the 2 lower sites had about a 3-mm depth to them. There was no tissue for debridement and a wound VAC was again reapplied. The patient to ICU, stable. TRANSINT:[id number] Voice Confirmation ID: [id number] DOCUMENT ID: [id number] VERONICA RUTHERFORD MD at 1031 CC: [id number] DICTATION DATE: 06/04/19 1004 POWDER WORKER TNT: 06/04/19 1346 ADM IN [facility] [address] [place] [address]
--- NOTE | 2019-06-05 10:50 | NUR ---
PATIENT UP TO BEDSIDE CHAIR WITH STANDBY ASSIST. REASSESSMENT COMPLETED. VSS.
--- NOTE | 2019-06-05 11:37 | NUR ---
PATIENT GIVEN LUNCH TRAY. VSS.
--- NOTE | 2019-06-05 14:09 | NUR ---
PT AT ROOM TO WALK PATIENT, UP WALKING IN ROSA WITH PT AND WALKER ON PROTABLE 02.
--- NOTE | 2019-06-05 14:16 | NUR ---
PATIENT WALKED 180 FT WITH PT. TOLERATED WELL. HR - 76, RR - 22, SPO2 99% ON 2 LPM VIA NC. BACK TO BEDSIDE CHAIR AND HORSE RACER AT BEDSIDE TO CHANGE WOUNDVAC DRESSING.
--- NOTE | 2019-06-05 14:39 | NUR ---
WOUND VAC DRESSING CHANGE DATE: 06/05/2019 WOUND MEASUREMENTS #1: 0.5CM X 1CM (IMPROVED) #2: 1CM X 1CM (IMPROVED) #3: 0.5CM X 1.5CM (IMPROVED) #4: 1CM X 1.5CM (IMPROVED) WOUND LOCATION: RIGHT LOWER LEG WOUND DESCRIPTION: RED WITH GRANULATION MUSCLE, TENDON, OR BONE EXPOSED? NO DRAINAGE AMOUNT/DESCRIPTION: NONE ODOR? NO TYPE OF SPONGE USED AND AMOUNT: 4 WHITE/2 BLACK SETTINGS: -125MMHG LOW CONTINUOUS TEACHING: HEALING PROCESS PT TOLERATED WELL.
--- NOTE | 2019-06-05 16:22 | NUR ---
PATIENT GIVEN DINNER TRAY. VSS.
--- NOTE | 2019-06-05 19:35 | NUR ---
PT A/OX4, SITTING UP IN CHAIR AT BEDSIDE WATCHING TV, LUNGS CLEAR, O2 @ 2L VIA N/C, LEFT TLSC INTACT WITH PLASMALYTE @ 30 CC/HR, LEFT LATERAL CHEST TUBE IN PLACE TO 20 CM SUCTION, LEAL PATENT TO BSD, WOUND VAC DRSG INTACT TO RIGHT LOWER LEG, JANN AND SCD TO LEFT LOWER LEG, NO C/O @ THIS TIME
--- NOTE | 2019-06-05 21:15 | NUR ---
PT AWAKE, LYING ON SIDE, TAKES PO MEDS WITHOUT DIFFICULTY, NO C/O
--- NOTE | 2019-06-05 23:15 | NUR ---
PT SLEEPING WITH NO DISTRESS, VITALS STABLE
[2019-06-06] VITALS (23 sets, daily range): BP systolic 116–157; BP diastolic 68–93
--- NOTE | 2019-06-06 01:00 | NUR ---
PT RESTING QUIETLY, NO CHANGE IN STATUS
--- NOTE | 2019-06-06 03:15 | NUR ---
PT ASLEEP WITHOUT DISTRESS, VITALS STABLE, AROUSES EASILY, ORAL TEMP 100.1, WILL CONT TO MONITOR
[2019-06-06 05:15] LABS: HEMATOCRIT 39.8 % (42.0-54.0); HEMOGLOBIN 12.6 g/dL (13.5-17.5); MCH 26.8 pg (26.0-34.0); MCHC 31.7 g/dL (31.0-37.0); MCV 84.7 fL (80.0-100.0); MEAN PLATELET VOLUME 10.2 fL (7.4-10.4); RBC 4.7 10x6/uL (4.20-6.10); RDW 15.2 % (11.5-14.5)
[2019-06-06 05:35] LABS: ALBUMIN 2.8 g/dL (3.4-5.0); ALKALINE PHOSPHATASE 67 U/L (30-120); ALT (SGPT) 14 U/L (10-68); BILIRUBIN - TOTAL 0.79 mg/dL (0.2-1.3); CALC OSMOLALITY 283 mosm/kg (275-300); CALCIUM 8.7 mg/dL (8.5-10.1); CARBON DIOXIDE 28.8 mmol/L (21.0-32.0); CHLORIDE - SERUM 105 mmol/L (98-107); CREATININE - SERUM 0.8 mg/dL (0.6-1.3); GLUCOSE 122 mg/dL (74-106); POTASSIUM - SERUM 3.6 mmol/L (3.5-5.1); PROTEIN - SERUM 6.1 g/dL (6.4-8.2); SODIUM 142 mmol/L (136-145); UREA NITROGEN 13 mg/dL (7-18); eGFR NON AFRICAN AMERICAN > 90 mL/min (90-120)
--- NOTE | 2019-06-06 07:15 | NUR ---
AWAKE EASILY TO VERBAL STIMULI SKIN WARM AND DRY. RIGHT LOWER LEG WOUND VAC INTACT TO SUCTION NO DRAININAGE IN TUBING OR CONTAINER. RIGHT CHEST TUBE TO 20 CM SUCTION SEROUS DRAINAGE NO AIR LEAK NOTED. DRESSING DRY AND INTACT. PATIENT DENIES ANY PAIN. IV RIGHT AC DC'D. LEAL CATH PATENT AND DRAINING CLEAR IRIS URINE. LEFT SUBCLAVIAN CENTRAL LINE DOUBLE LUMEN INFUSING WITH PLASMALYTE AT 30 ML HOUR. MONITOR SR. BILATERAL LUNG SOUNDS EQUAL AND CLEAR. ABD LARGE DISTENDED LOOKING BUT SOFT WITH BOWEL SOUNDS.
--- NOTE | 2019-06-06 08:00 | NUR ---
UP IN CHAIR AT BEDSIDE. WITH ASSISTANCES. TOLERATED WELL.
--- NOTE | 2019-06-06 09:00 | NUR ---
AMBULATED IN ROSA PER PHYSICAL THERAPY WITH WALKER. TOLERATED WELL
--- NOTE | 2019-06-06 10:00 | NUR ---
DR. JUAREZ HERE. ORDERS TO DC SUCTION TO CHEST TUBE. NO AIR LEAK NOTED
--- NOTE | 2019-06-06 11:00 | NUR ---
[facility] CALLED TALKED WITH DEYSI CHASE [employer]ING ATTORNEY ABOUT PATIENT MEDICATION CLOZAPINE 50MG EXPLAINED THAT OUR PHARMACY DOES NOT HAVE IT, AND SEE IF THEY COULD PROVIDE IT. DEYSI CHASE STATES SHE WILL CHECK AND SEE AND LET US KNOW.OUR PHONE NUMBER PROVIDED. CALLED [facility] RECEIVED A BUSY SIGNAL.
--- NOTE | 2019-06-06 11:30 | NUR ---
LUNCH TRAY SERVED ATE WELL.
--- NOTE | 2019-06-06 13:00 | NUR ---
RETURNED TO BED. AMBULATING WELL. NO DISTRESS TOLERATED WELL
--- NOTE | 2019-06-06 13:15 | NUR ---
LEAL CATH DC'D . IV LINES TO SALINE LOCK. PATIENT TOLERATED WELL. NO AIR LEAK PER CHEST TUBE. NO DISTRESS
--- NOTE | 2019-06-06 13:33 | NUR ---
CALLED [facility] ABOUT PATIENT MEDICATIONS, STATES THE PATIENT HAS NOT BEEN WITH THEM IN QUITE AWHILE, HE HAS BEEN AT THE [facility] AND SHE DOES NOT HAVE ANY MEDS FOR HIM. STILL WAITING ON NURSING TO CALL US BACK. [facility] HAS CALLED AND STATES THEY ARE WORKING ON IT
--- NOTE | 2019-06-06 15:00 | NUR ---
VOIDING 50-100 ML AT A TIME. NAPPING AT INTERVALS. BILATERAL LUNG SOUNDS EQUAL. NO AIR LEAK NOTED. NO DISTRESS
--- NOTE | 2019-06-06 16:00 | NUR ---
UP IN CHAIR AT BEDSIDE. GAIT IMPROVING STILL UNSTEADY, PATIENT USES CANE AT HOME. MEDS CLOZAPINE OBTAINED FROM [facility] TO LABEL.
--- NOTE | 2019-06-06 17:15 | NUR ---
DINNER TRAY SERVED ATE 100% GOOD APPETITE. MORE TALKATIVE. NO AIRLEAK CHEST TUBE.
--- NOTE | 2019-06-06 18:39 | MORECARE ---
CASE MANAGEMENT DISCHARGE SUMMARY PATIENT: AYALA GREENBERG UNIT: [id number] ADM DATE: 06/03/19 AGE: 64 : 55 SEX: M ROOM/BED: D.[facility] AUTHOR: SAMM TILLMAN PHYSICIAN: REFERRING PHYSICIAN: VERONICA JUAREZ MD DATE OF SERVICE: 06/06/19 Discharge Plan Patient Name: AYALA GREENBERG Facility: [facility]:[place] : 1955 Planned Disposition: Nursing Facility ZORAIDA Cert Anticipated Discharge Date: Discharge Date: Expected LOS: Initial Reviewer: [email or web address] Initial Review Date: 06/06/2019 Generated: 06/06/19 7:39 pm DCPIA - Discharge Planning Initial Assessment Updated by [email or web address]: Scarlett Leonard on 06/06/19 6:38 pm * Is the patient Alert and Oriented? Yes * How many steps to enter\exit or inside your home? * PCP ERIBERTO ALVES * Pharmacy [facility] * Preadmission Environment Care Home Facility * Facility Name [facility] * ADLs Partial Dependent * List name and contact numbers for known caregivers / representatives who currently or will assist patient after discharge: RAMIRO DALTON - [place] - [phone] * Verbal permission to speak to the caregivers and representatives has been obtained from the patient. Yes * Community resources currently utilized None * Additional services required to return to the preadmission environment? No * Can the patient safely return to the preadmission environment? Yes * Has this patient been hospitalized within the prior 30 days at any hospital? No Coverage Notice Reviewer: [id number] - Scarlett Leonard Notice Issued Date-Time: 06/06/2019 12:35 Notice Type: Patient Choice Letter Notice Delivered To: Patient Relationship to Patient: Self Data Report Analyst Name: Delivery Method: - Jes Days: Prior Verbal Notification: Recipient Understood Notice: Recipient Signature: Med Rec Note Co-signed by Attending: Coverage Notice Comment: Patient Name: AYALA GREENBERG Page [phone] at 1839 All edits/amendments must be made on the electronic document DICTATION DATE: 06/06/191838 SCRAP CHARGER: PAIGE 06/06/191838 RPT#: [id number] DC DATE: STATUS: ADM IN [facility] [address] [facility] [place] [address] END OF REPORT
--- NOTE | 2019-06-06 18:46 | MORECARE ---
CASE MANAGEMENT DISCHARGE SUMMARY PATIENT: AYALA GREENBERG UNIT: [id number] ADM DATE: 06/03/19 AGE: 64 : 55 SEX: M ROOM/BED: D.[facility] AUTHOR: PRIMO,DOC PHYSICIAN: REFERRING PHYSICIAN: VERONICA JUAREZ MD DATE OF SERVICE: 06/06/19 Discharge Plan Patient Name: AYALA GREENBERG Facility: [facility]:[place] : 1955 Planned Disposition: [facility] Facility Anticipated Discharge Date: Discharge Date: Expected LOS: Initial Reviewer: [email or web address] Initial Review Date: 06/06/2019 Generated: 06/06/19 7:45 pm Comments DCP- Discharge Planning Updated by [email or web address]: Scarlett Leonard on 06/06/19 5:[address] Patient Name: AYALA GREENBERG Admission Status: Elective Accout number: [id number] Admission Date: 06-03-2019 : 1955 Admission Diagnosis: Attending: VERONICA JUAREZ Current LOS: 3 Anticipated DC Date: Planned Disposition: [facility] Facility Primary Insurance: MEDICARE A & B Discharge Planning Comments: CM met with patient and explained CM role. Patient states that he is at [facility] for rehab and plans to return there upon discharge. IGNACIO signed CM will continue to follow and assist as needed with discharge planning. Channel Sales Manager: Scarlett Leonard DCPIA - Discharge Planning Initial Assessment Updated by [id number]: Scarlett Leonard on 06/06/19 6:38 pm * Is the patient Alert and Oriented? Yes * How many steps to enter\exit or inside your home? * PCP ERIBERTO ALVES * Pharmacy [facility] * Preadmission Environment [facility] Facility * Facility Name [facility] * ADLs Partial Dependent * List name and contact numbers for known caregivers / representatives who currently or will assist patient after discharge: RAMIRO SHA - FRIEND - [phone] * Verbal permission to speak to the caregivers and representatives has been obtained from the patient. Yes * Community resources currently utilized None * Additional services required to return to the preadmission environment? No * Can the patient safely return to the preadmission environment? Yes * Has this patient been hospitalized within the prior 30 days at any hospital? No Coverage Notice Reviewer: [id number] Betzy Leonard Notice Issued Date-Time: 06/06/2019 12:35 Notice Type: Patient Choice Letter Notice Delivered To: Patient Relationship to Patient: Self Sas Etl Developer Name: Delivery Method: HAND - Hand Delivered Jes Days: Prior Verbal Notification: Recipient Understood Notice: Yes Recipient Signature: Yes Med Rec Note Co-signed by Attending: Coverage Notice Comment: KIMBERLY Chen DP export: 06/06/19 5:39 p Patient Name: AYALA GREENBERG Page [phone] at 1846 All edits/amendments must be made on the electronic document DICTATION DATE: 06/06/191844 MANUAL WRITER: PAIGE 06/06/191844 RPT#: [id number] DC DATE: STATUS: ADM IN [facility] [address] [place] [address] END OF REPORT
--- NOTE | 2019-06-06 19:20 | NUR ---
PT A/OX4, SITTING UP IN CHAIR, LUNGS CLEAR, ON ROOM AIR, LEFT DLSC INTACT AND SL, LEFT LATERAL CHEST INTACT TO WATER SEAL, WOUND VAC DRESSING INTACT TO RIGHT LOWER LEG, JANN AND SCD TO LEFT LOWER LEG, URINAL IN REACH, NO C/O AT THIS TIME
--- NOTE | 2019-06-06 21:00 | NUR ---
PT REMAINS UP IN CHAIR, TAKES PO MEDS WITHOUT DIFFICULTY, VITALS STAB;E
--- NOTE | 2019-06-06 23:29 | NUR ---
PT AWAKE IN BED WATCHING TV WITH NO C/O, VOIDS IN URINAL, URINE CLEAR STRAW COLORED
[2019-06-07] VITALS (23 sets, daily range): BP systolic 107–168; BP diastolic 59–102
--- NOTE | 2019-06-07 01:00 | NUR ---
PT ASLEEP IN BED, NOTED PT HAD GOTTEN UP AND VOIDED IN TRASH CAN AND ON FLOOR, URINAL IN REACH ON BEDSIDE TABLE
--- NOTE | 2019-06-07 03:15 | NUR ---
PT REMAINS ASLEEP WITH NO CHANGE IN ASSESSMENT, VITALS STABLE
[2019-06-07 05:26] LABS: HEMATOCRIT 39.1 % (42.0-54.0); HEMOGLOBIN 12.6 g/dL (13.5-17.5); MCH 27.3 pg (26.0-34.0); MCHC 32.2 g/dL (31.0-37.0); MCV 84.8 fL (80.0-100.0); MEAN PLATELET VOLUME 10.1 fL (7.4-10.4); RBC 4.61 10x6/uL (4.20-6.10); RDW 15.4 % (11.5-14.5); WBC 8.3 10x3/uL (4.8-10.8)
--- NOTE | 2019-06-07 05:30 | NUR ---
PT BATHED, VERY SLEEPY, DRESSING CHANGED TO LEFT CHEST TUBE, NO C/O
[2019-06-07 05:36] LABS: ALBUMIN 2.7 g/dL (3.4-5.0); ALKALINE PHOSPHATASE 65 U/L (30-120); ALT (SGPT) 17 U/L (10-68); BILIRUBIN - TOTAL 0.58 mg/dL (0.2-1.3); CALC OSMOLALITY 287 mosm/kg (275-300); CALCIUM 8.9 mg/dL (8.5-10.1); CARBON DIOXIDE 27.1 mmol/L (21.0-32.0); CHLORIDE - SERUM 108 mmol/L (98-107); CREATININE - SERUM 0.7 mg/dL (0.6-1.3); GLUCOSE 109 mg/dL (74-106); POTASSIUM - SERUM 3.4 mmol/L (3.5-5.1); PROTEIN - SERUM 6.2 g/dL (6.4-8.2); SODIUM 144 mmol/L (136-145); UREA NITROGEN 12 mg/dL (7-18); eGFR NON AFRICAN AMERICAN > 90 mL/min (90-120)
--- NOTE | 2019-06-07 07:00 | NUR ---
SLEEPY UP IN CHAIR AT BEDSIDE. SPEECH AT LITTLE SLURRED.BUT ANSWERS QUESTIONS APPRIOPIATELY. SKIN WARM AND DRY. CHEST TUBE TO WATER SEAL DRAINAGE. NO AIR LEAK NOTED. MONITOR SR. DENIES ANY PAIN. LEFT SUBCLAVIAN CENTRAL LINE. SALINE LOCKED. VOIDING SMALL AMOUNTS IN DARK IRIS URINE. STANDING TO VOID.
--- NOTE | 2019-06-07 08:00 | NUR ---
BREAKFAST TRAY SERVED ATE WELL.
--- NOTE | 2019-06-07 09:32 | NUR ---
SLEEPING UP IN CHAIR NO DISTRESS
--- NOTE | 2019-06-07 10:49 | NUR ---
PATIENT IN CHAIR SLEEPING. NO DISTRESS. NO AIRLEAK.
--- NOTE | 2019-06-07 12:00 | NUR ---
DR. JUAREZ HERE. NO NEW ORDERS. PATIENT STILL SLEEPY IN CHAIR. NO DRAINAGE FROM WOUND VAC RIGHT LOWER LEG. CHEST TO WATER SEAL DRAINAGE NO AIR LEAK NOTED. SEROUS DRAINAGE. MONITOR SR. DENIES PAIN. LUNCH TRAY SERVED GREAT APPETITE.
--- NOTE | 2019-06-07 14:00 | NUR ---
STILL SLEEPY IN CHAIR. AWAKES EASILY. NO DISTRESS GOOD COUGH. DENIES PAIN. CHEST INTACT SEROUS DRAINAGE. NO DRAINAGE IN WOUND VAC RIGHT LOWER LEG 125 MMHG SUCTION TO WOUND VAC. NO LEAKS DETECTED.
--- NOTE | 2019-06-07 16:00 | NUR ---
NO CHANGE. AWAKES EASILY. NO DISTRESS
--- NOTE | 2019-06-07 17:59 | NUR ---
UP IN CHAIR MOST OF TODAY SLEEPING. AWAKES EASILY SKIN WARM AND DRY. CHEST TUBE INTACT WITH SEROUS DRAINAGE. NO AIR LEAK. DENIES PAIN.
--- NOTE | 2019-06-07 18:00 | NUR ---
NO DRAINAGE FROM WOUND VAC RIGHT LOWER LEG
--- NOTE | 2019-06-07 19:00 | NUR ---
Report received from off going nurse. Pt is sitting up in the chair watching tv. Initial assessment completed, see flowsheet for details. Pt requested toothpaste, toothbrush, mouthwash and a shower cap. No further needs voiced. No s/s of distress noted. Will continue to monitor.
--- NOTE | 2019-06-07 21:00 | NUR ---
Pt is sitting up in the chair watching tv at this time. No needs voiced. No s/s of distress noted. Will continue to monitor.
--- NOTE | 2019-06-07 23:00 | NUR ---
Reassessment completed, see flowsheet for details. Pt was assisted back to bed, immediately eyes were closed and it seemed that patient was asleep. No needs voiced. No s/s of distress noted. Will continue to monitor.
[2019-06-08] VITALS (7 sets, daily range): BP systolic 132–150; BP diastolic 69–89
--- NOTE | 2019-06-08 01:00 | NUR ---
Pt is laying in bed with eyes closed at this time. No needs voiced. No s/s of distress noted. Will continue to monitor.
--- NOTE | 2019-06-08 03:00 | NUR ---
Reassessment completed, see flowsheet for details. Pt is laying in bed with eyes closed at this time. No needs voiced. No s/s of distress noted. Will continue to monitor.
--- NOTE | 2019-06-08 05:00 | NUR ---
Pt is resting in bed with eyes closed. No needs voiced at this time. No s/s of distress noted. Will continue to monitor.
--- NOTE | 2019-06-08 09:01 | NUR ---
PT RESTING IN CHAIR. INCENTIVE SPIROMETER USAGE REINFORCED. PT USED IT 10 TIMES WHILE IN ROOM. NO NEEDS NOTED AT THIS TIME.
--- NOTE | 2019-06-08 09:38 | NUR ---
DR JUAREZ IN ROOM. PULLED CHEST TUBE. PT TOLERATED WELL. NEW DRESSING APPLIED. WILL CONTINUE TO MONITOR
--- NOTE | 2019-06-08 10:01 | NUR ---
CENTRAL LINE FROM LT SUBCLAVIAN REMOVED PER DR JUAREZ. PT TOLERATED WELL. NO SIGNS OF BLEEDING. PRESSURE HELD FOR 5 MINUTES. WILL CONTINUE TO MONITOR
--- NOTE | 2019-06-08 11:16 | NUR ---
PT TAKEN TO XRAY BY RADIOLOGY. PT TOLERATED WELL. BACK IN CHAIR. NO COMPLAINTS NOTED AT THIS TIME
--- NOTE | 2019-06-08 12:08 | NUR ---
WOUND CARE NURSE IN ROOM CHANGING WOUND VAC DRESSING.
--- NOTE | 2019-06-08 12:19 | NUR ---
WOUND VAC DRESSING CHANGE DATE: 06/08/2019 WOUND LOCATION: right lower leg WOUND MEASUREMENTS: 0.4cm x 1cm 0.6cm x 1cm 0.5cm x 1.5cm x 0.4cm 1cm x 1.5cm x 0.4cm WOUND DESCRIPTION: granulation noted MUSCLE, TENDON, OR BONE EXPOSED? no DRAINAGE AMOUNT/DESCRIPTION: none noted ODOR? no TYPE OF SPONGE USED AND AMOUNT: black SETTINGS: -125mmhg low continuous TEACHING: dressing changes Pt tolerated well.
--- NOTE | 2019-06-08 14:23 | MORECARE ---
CASE MANAGEMENT DISCHARGE SUMMARY PATIENT: AYALA GREENBERG UNIT: [id number] ADM DATE: 06/03/19 AGE: 64 : 55 SEX: M ROOM/BED: D.[facility] AUTHOR: PRIMO,DOC PHYSICIAN: REFERRING PHYSICIAN: VERONICA JUAREZ MD DATE OF SERVICE: 06/08/19 Discharge Plan Patient Name: AYALA GREENBERG Facility: [facility]:[place] : 1955 Planned Disposition: [facility] Facility Anticipated Discharge Date: Discharge Date: Expected LOS: Initial Reviewer: [email or web address] Initial Review Date: 06/06/2019 Generated: 06/08/19 3:22 pm Comments DCP- Discharge Planning Updated by [id number]: Scarlett Leonard on 06/06/19 5:[address] Patient Name: AYALA GREENBERG Admission Status: Elective Accout number: [id number] Admission Date: 06-03-2019 : 1955 Admission Diagnosis: Attending: VERONICA JUAREZ Current LOS: 3 Anticipated DC Date: Planned Disposition: [facility] Facility Primary Insurance: MEDICARE A & B Discharge Planning Comments: CM met with patient and explained CM role. Patient states that he is at [facility] for rehab and plans to return there upon discharge. IGNACIO signed CM will continue to follow and assist as needed with discharge planning. Surveillance Dual Rate Officer: Scarlett Leonard DCPIA - Discharge Planning Initial Assessment Updated by [id number]: Scarlett Leonard on 06/06/19 6:38 pm * Is the patient Alert and Oriented? Yes * How many steps to enter\exit or inside your home? * PCP ERIBERTO ALVES * Pharmacy [facility] * Preadmission Environment [facility] Facility * Facility Name [facility] * ADLs Partial Dependent * List name and contact numbers for known caregivers / representatives who currently or will assist patient after discharge: RAMIRO SHA - FRIEND - [phone] * Verbal permission to speak to the caregivers and representatives has been obtained from the patient. Yes * Community resources currently utilized None * Additional services required to return to the preadmission environment? No * Can the patient safely return to the preadmission environment? Yes * Has this patient been hospitalized within the prior 30 days at any hospital? No External Providers External Provider: [facility] Next Contact Date: Service Request Date: Service Type: Resolution: Reviewer: Comments: Coverage Notice Reviewer: [email or web address] Betzy Leonard Notice Issued Date-Time: 06/06/2019 12:35 Notice Type: Patient Choice Letter Notice Delivered To: Patient Relationship to Patient: Self Statuary Painter Name: Delivery Method: HAND - Hand Delivered Jes Days: Prior Verbal Notification: Recipient Understood Notice: Yes Recipient Signature: Yes Med Rec Note Co-signed by Attending: Coverage Notice Comment: [facility] Last DP export: 06/06/19 5:46 p Patient Name: AYALA GREENBERG Page [id number] at 1423 All edits/amendments must be made on the electronic document DICTATION DATE: 06/08/191421 POND SUPERVISOR: PAIGE 06/08/19 142 RPT#: [id number] DC DATE: STATUS: ADM IN [facility] [address] [place] [address] END OF REPORT
--- NOTE | 2019-06-08 14:47 | NUR ---
PT DISCHARGED TO [facility]. TOLERATED WALK DOWN TO [facility] [place].
--- NOTE | 2019-06-08 15:55 | MORECARE ---
CASE MANAGEMENT DISCHARGE SUMMARY PATIENT: AYALA GREENBERG UNIT: [id number] ADM DATE: 06/03/19 AGE: 64 : 55 SEX: M ROOM/BED: D[facility] AUTHOR: PRIMO,DOC PHYSICIAN: REFERRING PHYSICIAN: VERONICA JUAREZ MD DATE OF SERVICE: 06/08/19 Discharge Plan Patient Name: AYALA GREENBERG Facility: [facility]:[place] : 1955 Planned Disposition: [facility] Facility Anticipated Discharge Date: Discharge Date: 06/08/2019 Expected LOS: Initial Reviewer: [email or web address] Initial Review Date: 06/06/2019 Generated: 06/08/19 4:55 pm Comments DCP- Discharge Planning Updated by [email or web address]: Scarlett Leonard on 06/06/19 5:[address] Patient Name: AYALA GREENBERG Admission Status: Elective Accout number: [id number] Admission Date: 06-03-2019 : 1955 Admission Diagnosis: Attending: VERONICA JUAREZ Current LOS: 3 Anticipated DC Date: Planned Disposition: [facility] Facility Primary Insurance: MEDICARE A & B Discharge Planning Comments: CM met with patient and explained CM role. Patient states that he is at [facility] for rehab and plans to return there upon discharge. IGNACIO signed CM will continue to follow and assist as needed with discharge planning. Medical Sales Representative: Scarlett Leonard DCPIA - Discharge Planning Initial Assessment Updated by [email or web address]: Scarlett Leonard on 06/06/19 6:38 pm * Is the patient Alert and Oriented? Yes * How many steps to enter\exit or inside your home? * PCP ERIBERTO ALVES * Pharmacy [facility] * Preadmission Environment [facility] Facility * Facility Name [facility] * ADLs Partial Dependent * List name and contact numbers for known caregivers / representatives who currently or will assist patient after discharge: RAMIRO DALTNO - NAKNE[place] - [phone] * Verbal permission to speak to the caregivers and representatives has been obtained from the patient. Yes * Community resources currently utilized None * Additional services required to return to the preadmission environment? No * Can the patient safely return to the preadmission environment? Yes * Has this patient been hospitalized within the prior 30 days at any hospital? No Coverage Notice Reviewer: [id number] Betzy Leonard Notice Issued Date-Time: 06/06/2019 12:35 Notice Type: Patient Choice Letter Notice Delivered To: Patient Relationship to Patient: Self Private Duty Nurse Name: Delivery Method: HAND - Hand Delivered Jes Days: Prior Verbal Notification: Recipient Understood Notice: Yes Recipient Signature: Yes Med Rec Note Co-signed by Attending: Coverage Notice Comment: [facility] Reviewer: [email or web address] Betzy Leonard Notice Issued Date-Time: 06/08/2019 11:40 Notice Type: IM Discharge Notice Notice Delivered To: Patient Relationship to Patient: Self Private Duty Nurse Name: Delivery Method: HAND - Hand Delivered Jes Days: Prior Verbal Notification: Recipient Understood Notice: Yes Recipient Signature: Yes Med Rec Note Co-signed by Attending: Coverage Notice Comment: Last DP export: 06/08/19 1:23 pm Patient Name: AYALA GREENBERG Page [id number] at 1555 All edits/amendments must be made on the electronic document DICTATION DATE: 06/08/19 1555 BULL FLOAT FINISHER: PAIGE 06/08/19 1555 RPT#: [id number] DC DATE:06/08/19 STATUS: DIS IN [facility] [address] [place] [address] END OF REPORT
--- NOTE | 2019-06-08 16:03 | MORECARE ---
CASE MANAGEMENT DISCHARGE SUMMARY PATIENT: AYALA GREENBERG UNIT: [id number] ADM DATE: 06/03/19 AGE: 64 : 55 SEX: M ROOM/BED: D[facility] AUTHOR: PRIMO,DOC PHYSICIAN: REFERRING PHYSICIAN: VERONICA JUAREZ MD DATE OF SERVICE: 06/08/19 Discharge Plan Patient Name: AYALA GREENBERG Facility: [facility]:[place] : 1955 Planned Disposition: Half-Way Facility Anticipated Discharge Date: Discharge Date: 06/08/2019 Expected LOS: Initial Reviewer: [email or web address] Initial Review Date: 06/06/2019 Generated: 06/08/19 5:03 pm Comments DCP- Discharge Planning Updated by [email or web address]: Scarlett Leonard on 06/08/19 2:[address] Patient Name: AYALA GREENBERG Encounter No: [id number] : 1955 Primary Insurance: MEDICARE A & B Anticipated DC Date: Planned Disposition: Half-Way Facility External Planned Provider: : [facility] DCP follow-up note: Patient and family in agreement with discharge plan. No changes to plan. D/C IMM signed @ 06/08/19 @ 1140. Case management will follow and assist as needed. Scarlett Leonard DCP- Discharge Planning Updated by [email or web address]: Scarlett Leonard on 06/06/19 5:[address] Patient Name: AYALA GREENBERG Admission Status: Elective Accout number: [id number] Admission Date: 06-03-2019 : 1955 Admission Diagnosis: Attending: VERONICA JUAREZ Current LOS: 3 Anticipated DC Date: Planned Disposition: Half-Way Facility Primary Insurance: MEDICARE A & B Discharge Planning Comments: CM met with patient and explained CM role. Patient states that he is at [facility] for rehab and plans to return there upon discharge. IGNACIO signed CM will continue to follow and assist as needed with discharge planning. Professional Bass Fisher: Scarlett Leonard DCPIA - Discharge Planning Initial Assessment Updated by [email or web address]: Scarlett Leonard on 06/06/19 6:38 pm * Is the patient Alert and Oriented? Yes * How many steps to enter\exit or inside your home? * PCP ERIBERTO ALVES * Pharmacy [facility] * Preadmission Environment Half-Way Facility * Facility Name [facility] * ADLs Partial Dependent * List name and contact numbers for known caregivers / representatives who currently or will assist patient after discharge: RAMIRO PRASAD - [phone] * Verbal permission to speak to the caregivers and representatives has been obtained from the patient. Yes * Community resources currently utilized None * Additional services required to return to the preadmission environment? No * Can the patient safely return to the preadmission environment? Yes * Has this patient been hospitalized within the prior 30 days at any hospital? No Coverage Notice Reviewer: [id number] Betzy Leonard Notice Issued Date-Time: 06/06/2019 12:35 Notice Type: Patient Choice Letter Notice Delivered To: Patient Relationship to Patient: Self Surgical Orderly Name: Delivery Method: HAND - Hand Delivered Jes Days: Prior Verbal Notification: Recipient Understood Notice: Yes Recipient Signature: Yes Med Rec Note Co-signed by Attending: Coverage Notice Comment: [facility] Reviewer: [email or web address] Betzy Leonard Notice Issued Date-Time: 06/08/2019 11:40 Notice Type: IM Discharge Notice Notice Delivered To: Patient Relationship to Patient: Self Surgical Orderly Name: Delivery Method: HAND - Hand Delivered Jes Days: Prior Verbal Notification: Recipient Understood Notice: Yes Recipient Signature: Yes Med Rec Note Co-signed by Attending: Coverage Notice Comment: Last DP export: 06/08/19 2:55 pm Patient Name: AYALA GREENBERG Page [phone] at 1603 All edits/amendments must be made on the electronic document DICTATION DATE: 06/08/19 1603 TEST EQUIPMENT MECHANIC: PAIGE 06/08/19 1603 RPT#: [id number] DC DATE:06/08/19 STATUS: DIS IN [facility] [address] [facility] [place] [address] END OF REPORT
== END 2019-06-08 14:47 | DRG 187 ==
LOC: D.CVICU 13:58 → D.MS 13:58 → D.SDCHOLD 06-04 07:30 → D.CVICU 06-04 10:48
PROVIDERS: ADMIT Thoracic Surgery (Cardiothoracic Vascular Surgery); ATTEND Thoracic Surgery (Cardiothoracic Vascular Surgery)
PROC: 3E0L4GC Introduction of Other Therapeutic Substance into Pleural Cavity, Percutaneous Endoscopic Approach (ICD-10-PCS; principal; 2019-06-04 07:30)
PROC: 0BJ08ZZ Inspection of Tracheobronchial Tree, Via Natural or Artificial Opening Endoscopic (ICD-10-PCS; 2019-06-04 07:30)
DX: J90 Pleural effusion, not elsewhere classified (principal); I50.20 Unspecified systolic (congestive) heart failure; J93.9 Pneumothorax, unspecified; E11.9 Type 2 diabetes mellitus without complications; M19.90 Unspecified osteoarthritis, unspecified site; F20.9 Schizophrenia, unspecified; K21.9 Gastro-esophageal reflux disease without esophagitis; J44.9 Chronic obstructive pulmonary disease, unspecified; F17.210 Nicotine dependence, cigarettes, uncomplicated; Z99.81 Dependence on supplemental oxygen

== ENCOUNTER → 2019-06-19 13:49 | Outpatient (CLI) | payer MEDICARE ==
[2019-06-04 11:19] VITALS: BMI 28.6
== END | disposition home or self-care (01) ==
LOC: D.CT 13:49
PROVIDERS: ATTEND Internal Medicine Pulmonary Disease
DX: J90 Pleural effusion, not elsewhere classified (principal)

== ENCOUNTER → 2019-06-26 08:37 | Outpatient (CLI) | payer MEDICARE ==
[2019-06-04 11:19] VITALS: BMI 28.6
== END | disposition home or self-care (01) ==
LOC: D.RAD 08:37
PROVIDERS: ATTEND Thoracic Surgery (Cardiothoracic Vascular Surgery)
DX: J90 Pleural effusion, not elsewhere classified (principal)

== ENCOUNTER → 2019-07-14 10:24 | Outpatient (CLI) | payer MEDICARE ==
[2019-06-04 11:19] VITALS: BMI 28.6
== END | disposition home or self-care (01) ==
LOC: D.US 10:24 → D.CT 11:30
PROVIDERS: ATTEND Thoracic Surgery (Cardiothoracic Vascular Surgery)
DX: R60.9 Edema, unspecified (principal); I73.9 Peripheral vascular disease, unspecified; T81.89XA Other complications of procedures, not elsewhere classified, initial encounter

== ENCOUNTER 2019-08-14 11:57 | Emergency (ER) | payer MEDICARE ==
[~2019-08-14] VITALS: Ht 188 cm; Wt 99.1 kg
[2019-08-14 12:00] VITALS: Ht 188 cm; Wt 99.1 kg
[2019-08-14 12:41] LABS: BASOPHILS 0.1 % (0-2); EOSINOPHILS 0 % (0-7); HEMATOCRIT 39.4 % (42.0-54.0); IMMATURE GRANULOCYTES 0.2 % (0-5); LYMPHOCYTES 14.4 % (15-50); MCH 26.4 pg (26.0-34.0); MCHC 30.5 g/dL (31.0-37.0); MCV 86.8 fL (80.0-100.0); MEAN PLATELET VOLUME 9.7 fL (7.4-10.4); MONOCYTES 8.8 % (2-11); NEUTROPHILS 76.5 % (40-80); PLATELET COUNT 214 10x3/uL (130-400); RBC 4.54 10x6/uL (4.20-6.10); RDW 15.9 % (11.5-14.5); WBC 8.4 10x3/uL (4.8-10.8)
[2019-08-14 13:03] LABS: CALC OSMOLALITY 282 mosm/kg (275-300); CARBON DIOXIDE 29.9 mmol/L (21.0-32.0); CHLORIDE - SERUM 106 mmol/L (98-107); CREATININE - SERUM 0.8 mg/dL (0.6-1.3); GLUCOSE 126 mg/dL (74-106); POTASSIUM - SERUM 3.8 mmol/L (3.5-5.1); SODIUM 141 mmol/L (136-145); UREA NITROGEN 13 mg/dL (7-18); eGFR NON AFRICAN AMERICAN > 90 mL/min (90-120)
[2019-08-14 13:04] LABS: APTT 31.6 SECONDS (22.8-39.4); INR 1.08 (0.85-1.17); PROTIME 13.9 SECONDS (11.6-15.0)
[2019-08-14 13:16] LABS: ALBUMIN 3.3 g/dL (3.4-5.0); ALKALINE PHOSPHATASE 85 U/L (30-120); ALT (SGPT) 15 U/L (10-68); BILIRUBIN - TOTAL 0.44 mg/dL (0.2-1.3); CKMB 1.7 U/L (0.0-3.6); CREATINE KINASE 36 UL (21-232); PRO BNP 4271 pg/mL (0-125); PROTEIN - SERUM 6.8 g/dL (6.4-8.2); TROPONIN-I 0.059 ng/mL (0.000-0.060)
[2019-08-14] MEDS ORDERED: LASIX40 MG PO (13:56)
[2019-08-14 15:23] VITALS: BP 153/91
== END 2019-08-14 15:25 ==
LOC: D.ER 11:57
PROVIDERS: Family Medicine
DX: I11.0 Hypertensive heart disease with heart failure (principal); I50.9 Heart failure, unspecified; D64.9 Anemia, unspecified; R06.02 Shortness of breath; R05 Cough; E11.9 Type 2 diabetes mellitus without complications; J44.9 Chronic obstructive pulmonary disease, unspecified; K21.9 Gastro-esophageal reflux disease without esophagitis; Z72.0 Tobacco use; Z79.84 Long term (current) use of oral hypoglycemic drugs; R53.83 Other fatigue

== ENCOUNTER → 2019-09-09 12:22 | Outpatient (CLI) | payer MEDICARE ==
[2019-08-14 12:00] VITALS: BMI 28.0
[~2019-09-09 12:22] MED LIST changes: +LASIX40 MG PO
== END | disposition home or self-care (01) ==
LOC: D.LABREF 12:22
PROVIDERS: ATTEND Internal Medicine Pulmonary Disease
DX: Z11.59 Encounter for screening for other viral diseases (principal)

== ENCOUNTER → 2019-09-11 09:00 | Outpatient (CLI) | payer MEDICARE ==
[2019-08-14 12:00] VITALS: BMI 28.0
== END | disposition home or self-care (01) ==
LOC: D.RT 07-28 08:00 → D.RAD 07-28 08:00 → D.RT 09-08 10:45
PROVIDERS: ATTEND Internal Medicine Pulmonary Disease
DX: J90 Pleural effusion, not elsewhere classified (principal); J93.9 Pneumothorax, unspecified; Z95.1 Presence of aortocoronary bypass graft; E11.9 Type 2 diabetes mellitus without complications; K21.9 Gastro-esophageal reflux disease without esophagitis; Z72.0 Tobacco use; J44.9 Chronic obstructive pulmonary disease, unspecified; Z99.81 Dependence on supplemental oxygen

== ENCOUNTER 2020-07-13 14:47 | Inpatient (IN) | payer MEDICARE, MEDICAID ==
[~2020-07-13] VITALS: Ht 188 cm; Wt 111.9 kg
--- NOTE | ~2020-07-13 | HEMODYNAMI ---
PATIENT:AYALA GREENBERG MEDICAL RECORD: [id number] : 55 LOCATION:[facility] D.2120 ADMISSION DATE: 07/13/20 Generatedon:110:33 Patient name: AYALA GREENBERG Patient #: [id number] : 1955 Date of study: 07/15/2020 Page: Of Hemodynamic Procedure Report Patient Data Patient Demographics Procedure consent was obtained First Name: AYALA Gender: Male Last Name: DIONICIO : 1955 Middle Initial: FRANCISCA Age: 65 year(s) Patient #: [id number] Race: SSN: [id number] Additional ID: [id number] Contact details Address: [address] [place] [address] State: [place] [facility] [place] code: [address] Past Medical History History of disease Date Diagnosis Comments CAD Allergies Allergen Reaction Date Comments Reported Penicillins 07/15/2020 Admission Admission Data Admission Date: 07/13/2020 Admission Time: 16:13 Room #: D.2120 Height (in.): 73.62 BSA: 2.39 (m2) Height (cm.): 187 BMI: 32.89 (kg/m2) Weight (lbs.): 253.53 Weight (kg.): 115 Lab Results Lab Result Date: 07/15/2020 Lab Result Time: 0:00 Biochemistry Name Units Result Min Max BUN mg/dl 25 --(----)-* 7 18 Creatinine mg/dl 1.2 --(---*)-- 0.6 1.3 eGFR ml/min 64.82389 *-(----)-- 90 120 NONAFRICAN CBC Name Units Result Min Max Hematocrit % 42.5 --(*---)-- 42 54 Hemoglobin g/dl 13 -*(----)-- 13.5 17.5 Procedure Procedure Types Cath Procedure Diagnostic Procedure [facility] Coronaries w/Grafts FFR/IVUS FFR Initial Aortic Root Angiography Sedation Charges Moderate Sedation 25-39 minutes PCI Procedure Hemochron ACT Test Procedure Description Procedure Date Procedure Date: 07/15/2020 Procedure Start Time: 10:04 Procedure End Time: 10:31 Procedure Staff Name Function Markie Mehta MD Performing Physician Charito Zambrano RT Monitor Merced Carr RT Scrub Mary Jones RN Nurse Procedure Data Cath Procedure Fluoroscopy Diagnostic fluoroscopy Total fluoroscopy Time: 5 time: 5 min min Diagnostic fluoroscopy Total fluoroscopy dose: dose: 1334 mGy 1334 mGy Contrast Material Contrast Material Type Amount (ml) Isovue 300 131 Entry Location Entry Primary Successful Side Size Upsize Upsize Entry Closure Succes sful Closure Location (Fr) 1 (Fr) 2 (Fr) Remarks Device Remarks Femoral Right 5 Fr Exoseal artery Estimated blood loss: 5 ml Diagnostic catheters Device Type Used For End Catheter Placement MULTIPACK JL 4.0 5Fr Procedure catheter DIAGNOSTIC JL 6 5Fr Procedure catheter (192500V) MULTIPACK 3DRC 5Fr Procedure catheter MULTIPACK Pigtail 5 Fr Procedure catheter MULTIPACK 3DRC 5Fr Procedure catheter Procedure Complications No complications Procedure Medications Medication Administration Route Dosage Oxygen etCO2 Nasal cannula 3 l/min Lidocaine 2% added to field 20 Benadryl I.V. 50 mg Heparin Flush Bag added to field 2 bags (1000units/500ml NS) 0.9% NaCl I.V. 50 ml/hr Dobutamine I.V. drip 5 mcg/kg/min (500mg/250ml D5W) Versed I.V. 1 mg Fentanyl I.V. 50 mcg Dobutamine 5 mcg/kg/min (500mg/250ml D5W) Heparin Bolus I.V. 3000 units Hemodynamics Rest BSA: 2.39 (m2) HGB: 13 (g/dl) O2 Consumption: Estimated: 295.02 (ml/min) O2 Cons umption indexed: Estimated:123.44 (ml/min/m) Heart Rate: 88 (bpm) Snapshots Pre Cath Intra NCS Post Cath Vital Signs Time Heart Resp SPO2 etCO2 NIBP (mmHg) Rhythm Pain Sedation Rate (ipm) (%) (mmHg) Status Level (bpm) 9:49:54 98 20 100 2.9 142/103(124) NSR 0 (11) 10(A) , No pain 9:54:02 89 12 99 1.4 143/99(119) NSR 0 (11) 10(A) , No pain 9:58:14 84 11 99 9.6 133/94(105) NSR 0 (11) 10(A) , No pain 10:02:22 84 13 99 14.8 139/96(115) NSR 0 (11) 9(A) , No pain 10:06:34 85 14 99 11.1 136/90(115) NSR 0 (11) 9(A) , No pain 10:10:46 90 14 99 21.5 130/88(102) NSR 0 (11) 9(A) , No pain 10:14:56 87 12 99 19.3 134/91(114) NSR 0 (11) 9(A) , No pain 10:19:07 92 14 99 25.2 135/91(109) NSR 0 (11) 9(A) , No pain 10:23:17 83 10 99 10.4 126/89(108) NSR 0 (11) 9(A) , No pain 10:27:25 81 12 100 23.7 125/91(104) NSR 0 (11) 10(A) , No pain 10:31:33 78 14 100 14.8 131/91(106) NSR 0 (11) 10(A) , No pain Medications Time Medication Route Dose Verified Delivered Reason Notes Effectiveness by by 9:50:52 Oxygen etCO2 Nasal 3 l/min Markie Hernandez used f or cannula St Kevin lewis MD 9:50:58 Lidocaine 2% added to field 20ml vial Markie Aden for lo angel St Kevin Mehta anesthetic MD ZELAYA 9:51:26 Benadryl I.V. 50 mg Markie Hernandez used f or St Kevin Jones RN procedure 9:51:34 Heparin Flush added to field 2 bags Markie Hernandez used f or Bag St Kevin Jones RN procedure (1000units/500ml NS) 9:51:47 Dobutamine I.V. drip 5 Markie Hernandez Per ph ysician Continued (500mg/250ml mcg/kg/min St Kevin Jones RN drip from D5W) medical floor. 9:51:47 0.9% NaCl I.V. 50ml/hr Markie Hernandez Per ph ysician St Kevin Jones RN, MD 9:59:16 Versed I.V. 1 mg Markie Hernandez for se dation St Kevin Jones RN, MD 9:59:23 Fentanyl I.V. 50 mcg Markie Hernandez for se dation St Kevin Jones RN, MD 10:11:09 Dobutamine I.V. 5 Markie Hernandez Per ph ysician Discontinued (500mg/250ml drip-discontinued mcg/kg/min St Kevin Jones RN per D5W) MD mora 10:17:48 Heparin Bolus I.V. 3000 units Markie Hernandez for verified St Kevin Jones RN anticoagulation with dr MD mora Procedure Log Time Note 9:25:16 Mary Jones RN sent for patient. Start room use. 9:39:01 Informed consent obtained and on chart 9:39:24 Procedure Status Urgent Heart Cath (IP). 9:39:25 Time tracking: Regular hours (M-F 7:00 - 5:00) 9:39:28 Plan of Care:Hemodynamics will remain stable., Cardiac rhythm will remain stable., Comfort level will be maintained., Respiratory function will remain adequate., Patient/ family verbilizes understanding of procedure., Procedure tolerated without complication., Recovers from procedure without complications.. 9:40:09 Patient received from Med II to CCL 1 Alert and oriented. Tansferred to table in Supine position. 9:40:10 Warm blankets applied, and usha hugger turned on for patient comfort. 9:40:10 Correct patient and procedure confirmed by team. 9:40:10 ECG and BP/O2 sat monitors applied to patient. 9:48:53 Vital chart was started 9:48:54 Baseline sample Acquired. 9:49:00 Rhythm: sinus rhythm 9:49:01 Full Disclosure recording started 9:49:18 H&P Date Dictated: 07/13/2020 ER History on chart.. 9:49:20 Pre-procedure instructions explained to patient. 9:49:20 Pre-op teaching completed and patient verbalized understanding. 9:49:21 Family unavailable. 9:49:22 Patient NPO since Midnight. 9:49:28 Patient allergic to Penicillins 9:49:29 Is the patient allergic to Iodine/contrast media? No. 9:49:34 Is patient on blood thinner?No 9:49:36 Patient diabetic? Yes. 9:49:37 If diabetic: On Metformin? Yes 9:49:39 If on Metformin: Last Dose? 07/14/2020 9:49:42 Previous problem with sedation/anesthesia? No ? 9:49:45 Snore? Yes 9:49:46 Sleep apnea? No 9:49:46 Deviated septum? No 9:49:48 Opens mouth fully? Yes 9:49:49 Sticks out tongue? Yes 9:50:08 Airway obstruction? Yes EMPHYSEMA 9:50:11 Dentures? No ? 9:50:14 Pre procedure: right dorsailis pedis pulse 1+ Palpable, but thready & weak; easily obliterated 9:50:16 Patient pain scale 0/10 ?. 9:50:42 IV patent on arrival in left antecubital with 0.9% NaCl at [facility]. 9:50:52 Oxygen 3 l/min etCO2 Nasal cannula was administered by Mary Jones RN; used for procedure; Verbal order read back and verified. 9:50:58 Lidocaine 2% 20ml vial added to field was administered by Markie Mehta MD; for local anesthetic; Verbal order read back and verified. 9:51:26 Benadryl 50 mg I.V. was administered by Mary Jones RN; used for procedure; Verbal order read back and verified. 9:51:32 Lab Result : BUN 25 mg/dl 9:51:32 Lab Result : eGFR NONAFRICAN 64.46145 ml/min 9:51:32 Lab Result : Creatinine 1.2 mg/dl 9:51:32 Lab Result : Hemoglobin 13 g/dl 9:51:32 Lab Result : Hematocrit 42.5 % 9:51:34 Heparin Flush Bag (1000units/500ml NS) 2 bags added to field was administered by Mary Jones RN; used for procedure; Verbal order read back and verified. 9:51:38 Patient Weight : 253.53 lbs 9:51:40 Patient Height : 73.62 inches 9:51:47 Dobutamine (500mg/250ml D5W) 5 mcg/kg/min I.V. drip was administered by Mary Jones RN; Per physician; Continued drip from medical floor. Verbal order read back and verified. 9:51:47 0.9% NaCl 50ml/hr I.V. was administered by Mary Jones RN; Per physician; Verbal order read back and verified. 9:55:22 Lab results completed and on chart. 9:55:23 Alarms reviewed by RMonica N. 9:55:24 Sharps counted by scrub and verified by R.N. 9:55:33 Procedure type changed to Cath procedure, Diagnostic procedure, LHC, Coronaries w/Grafts, FFR/IVUS, FFR Initial, Aortic Root Angiography, Sedation Charges, Moderate Sedation 25-39 minutes, PCI procedure, Hemochron ACT Test 9:55:40 --------ALL STOP TIME OUT------ 9:55:41 Final Timeout: patient, procedure, and site verified with staff and physician. All members of the team are in agreement. 9:55:42 Right groin site verified by team. 9:55:44 Fire Safety Assessment: A--An alcohol-based skin anteseptic being used preoperatively., C--Open oxygen or nitrous oxide is being used., D--An ESU, laser, or fiber-optic light is being used. 9:55:51 Physical assessment completed. ASA score P 3 - A patient with severe systemic disease as per Markie Mehta MD. 9:56:04 2) 60-89 Mildly reduced kidney function, and other findings (as for stage 1) point to kidney disease. 9:56:05 Maximum allowable contrast dose (3.7 X eGFR X 0.75)? ml. 9:56:08 Sedation plan: IV Moderate Sedation Medication:Versed, Fentanyl 9:59:16 Versed 1 mg I.V. was administered by Mary Jones RN; for sedation; Verbal order read back and verified. 9:59:23 Fentanyl 50 mcg I.V. was administered by Mary Jones RN; for sedation; Verbal order read back and verified. 10:03:53 Procedure started. 10:04:00 Local anesthetic to right femoral artery with Lidocaine 2% by Markie Mehta MD.INITIAL ACCESS ONLY 10:05:28 Use device set Femoral Dx 10:05:32 ACIST Syringe (29096) opened to sterile field. 10:05:32 Bag Decanter () opened to sterile field. 10:05:33 ACIST Hand Control (50747) opened to sterile field. 10:05:33 ACIST Manifold (04696) opened to sterile field. 10:05:34 Tegaderm 4 x 4 (1626W) opened to sterile field. 10:05:36 Medline Cath Pack ([id number]) opened to sterile field. 10:05:36 DIAGNOSTIC Multipack 5Fr catheter set (FV8579) opened to sterile field. 10:05:37 SHEATH 5FR [place] (GAO199) opened to sterile field. 10:05:37 EMERALD Guide Wire (502-236) opened to sterile field. 10:05:47 A 5 Fr sheath was inserted into the Right Femoral artery 10:06:33 A MULTIPACK JL 4.0 5Fr catheter was advanced over the wire and used for Procedure. 10:07:42 Catheter removed. 10:07:51 UNABLE TO ENGAGE 10:08:16 A DIAGNOSTIC JL 6 5Fr catheter (678923O) was advanced over the wire and used for Procedure. 10:09:30 LCA angiography performed. 10:10:21 Catheter removed. 10:10:36 A MULTIPACK 3DRC 5Fr catheter was advanced over the wire and used for Procedure. 10:11:09 Dobutamine (500mg/250ml D5W) 5 mcg/kg/min I.V. drip-discontinued was administered by Mary Jones RN; Per physician; Discontinued per dr mora Verbal order read back and verified. 10:11:22 RCA angiography performed. 10:12:33 SVG to Circ angiography performed. 10:14:13 MORALES to LAD angiography performed. 10:14:16 Catheter removed. 10:17:20 A MULTIPACK Pigtail 5 Fr catheter was advanced over the wire and used for Procedure. 10:17:48 Heparin Bolus 3000 units I.V. was administered by Mary Jones RN; for anticoagulation; verified with dr mora Verbal order read back and verified. 10:18:31 Aortic Root visualized 10:18:33 Catheter removed. 10:18:40 Proceeding to intervention. 10:18:58 A MULTIPACK 3DRC 5Fr catheter was advanced over the wire and used for Procedure. 10:19:07 INFLATOR Merit BasixCompak (BZ4870) opened to sterile field. 10:19:11 [place] OmniWire (36542) opened to sterile field. 10:20:26 Zero performed for pressure channel P1 10:24:26 Pressure wire advanced. 10:24:44 Wire advanced across lesion. 10:26:45 RCA lesion measured at 1.09 with IFR 10:27:13 Wire removed. 10:27:15 Catheter removed. 10::19 EXOSEAL 5Fr (EX500) opened to sterile field. 10:28:15 Sheath removed intact; hemostasis achieved with Exoseal to the Right Femoral artery. 10:28:17 Procedure ended.(Physican Out) ::04 Fluoroscopy time 05.00 minutes. 10::08 Fluoroscopy dose: 1334 mGy 10:: Flurop Dose total: 1334 10:: Dose Area Product 44747 mGy/cm. 10:29: Contrast amount:Isovue 300 131ml. 10:29:21 Maximum allowable dose exceeded? No. 10::22 Sharps counted by scrub and verified by R.N. 10:29:25 Post-op/insertion site Right Femoral artery dressed using a 4 x 4 and Tegaderm. 10::28 Post-procedure physical assessment completed. ASA score P 2 - A patient with mild systemic disease as per Markie Mehta MD. 10:29:31 Post procedure rhythm: sinus rhythm 10::33 Estimated blood loss: 5 ml 10::34 Post procedure instruction explained to patient.Patient verbalizes understanding. 10::34 Patient needs reinforcement of post procedure teaching. 10:31:04 ACT drawn and resulted at 173 seconds. (normal therapeutic range 180-240 seconds). 10:31:04 Procedure and supply charges have been captured, reviewed, submitted and are correct. 10:31:06 Procedure Complication : No complications 10:31:08 Vital chart was stopped 10:31:10 [facility] Findings: mild to moderate CAD (<70%) 10:31:11 Operative report dictated upon procedure completion. 10:31:12 See physician's report for complete and final results. 10:31:16 Report given to [facility]. 10:31:28 Patient transfered to [facility] with Bed. 10:31:29 Procedure ended. 10:31:29 Full Disclosure recording stopped 10:32:02 End room use (Document Last) 10:32:32 End room use (Document Last) 10:32:59 End room use (Document Last) Device Usage Item Name Manufacture Quantity Catalog Hospital Part Current Minimal L ot# / Number Charge Number Stock Stock Serial# Code ACIST Acist 1 51411 395153 584696 705084 20 Syringe Medical (27523) Systems Inc Bag Microtek 1 704693 32881 957280 5 Decanter Medical Inc. () ACIST Hand Acist 1 35856 675067 417250 486252 5 Control Medical (93313) Systems Inc ACIST Acist 1 59886 631956 629757 619411 5 Manifold Medical (32915) Systems Inc Tegaderm 4 3M 1 1626W 839260 801326 451148 5 x 4 (1626W) Medline Medline 1 [id number] 404447 63113 434398 5 Cath Pack ([id number]) DIAGNOSTIC Cardinal 1 ME4067 041436 52004 750861 30 Phonologics 5Fr catheter set (UO6474) SHEATH 5FR Terumo 1 PSO561 577390 328233 289685 5 [place] (FTA667) EMERALD Cardinal 1 502-455 056686 744474 405486 5 Guide Wire Health (502-455) MULTIPACK Cardinal 1 942643 5 JL 4.0 5Fr Health catheter DIAGNOSTIC Cardinal 1 [id number] 025717 677169 332256 5 JL 6 5Fr Health catheter (011374K) MULTIPACK Cardinal 1 485270 5 3DRC 5Fr Health catheter MULTIPACK Cardinal 1 697237 5 Pigtail 5 Health Fr catheter INFLATOR Merit 1 HW3583 389416 524653 656032 15 [facility] BasixCompak (IT8571) [place] 1 [id number] 490090 29188 9980 5 OmniWire (19173) EXOSEAL 5Fr Cardinal 1 EX500 640033 205192 602256 10 (EX500) Health Signature Audit [place] Stage Time Signature Unsigned Intra-Procedure 07/15/2020 Merced Carr 10:32:32 AM RT(R) Intra-Procedure 07/15/2020 Mary Jones RN 10:32:59 AM Intra-Procedure 07/15/2020 Markie Valero 10:33:35 AM Kevin ZELAYA [id number] [place] [address]
[2020-07-13 15:15] LABS: BASOPHILS 0.1 % (0-2); EOSINOPHILS 0 % (0-7); HEMATOCRIT 41.2 % (42.0-54.0); HEMOGLOBIN 12.7 g/dL (13.5-17.5); IMMATURE GRANULOCYTES 0.2 % (0-5); LYMPHOCYTE ABS# 0.88 10x3/uL (1.32-3.57); LYMPHOCYTES 9.4 % (15-50); MCH 27.6 pg (26.0-34.0); MCHC 30.8 g/dL (31.0-37.0); MCV 89.6 fL (80.0-100.0); MEAN PLATELET VOLUME 10.6 fL (7.4-10.4); MONOCYTES 7.7 % (2-11); NEUTROPHILS 82.6 % (40-80); PLATELET COUNT 194 10x3/uL (130-400); RDW 15.9 % (11.5-14.5); WBC 9.3 10x3/uL (4.8-10.8)
[2020-07-13 15:25] LABS: ANION GAP 12.8 mmol/L (8-16); CALCIUM 9.2 mg/dL (8.5-10.1); CARBON DIOXIDE 29.3 mmol/L (21.0-32.0); CREATININE - SERUM 1.4 mg/dL (0.6-1.3); POTASSIUM - SERUM 4.1 mmol/L (3.5-5.1)
[2020-07-13 15:31] LABS: ALBUMIN 3.1 g/dL (3.4-5.0); BILIRUBIN - TOTAL 0.49 mg/dL (0.2-1.3); PROTEIN - SERUM 6.2 g/dL (6.4-8.2)
[2020-07-13 15:57] LABS: PRO BNP 2051 pg/mL (0-125)
[2020-07-13 16:04] LABS: APTT 27.4 SECONDS (22.8-39.4); INR 1.26 (0.85-1.17); PROTIME 14.6 SECONDS (11.6-15.0)
[2020-07-13 16:06] LABS: TROPONIN-I < 0.017 ng/mL (0.000-0.060)
[2020-07-13 16:36] LABS: BILIRUBIN NEGATIVE (NEGATIVE); KETONE NEGATIVE (NEGATIVE); NITRITE NEGATIVE (NEGATIVE); UROBILINOGEN NORMAL mg/dL (< 2)
[2020-07-13 16:44] VITALS: BP 155/94
--- NOTE | 2020-07-13 18:16 | NUR ---
RECEIVE SHIFT REPORT FROM JAQUELINE MENDEZ.
[2020-07-13] MEDS ORDERED: FLOMAX0.4 MG PO (18:49)
[2020-07-13] MEDS ORDERED: FUROSEMIDE40 MG PO (18:50)
[2020-07-13] MEDS ORDERED: SINGULAIR10 MG PO (18:52)
[2020-07-13] MEDS ORDERED: PROTONIX40 MG PO (18:53)
[2020-07-13] MEDS ORDERED: IPRAT-ALBUT 0.5-3 ML UPD (18:55)
[2020-07-13] MEDS ORDERED: PROAIR HFA8.5 G1 INH (18:58)
[2020-07-13 22:06] LABS: CKMB 3.4 U/L (0.0-3.6); CREATINE KINASE 62 UL (21-232)
[2020-07-13 22:17] LABS: TROPONIN-I 0.074 ng/mL (0.000-0.060)
[2020-07-13 23:23] VITALS: BP 114/83
--- NOTE | 2020-07-14 03:43 | NUR ---
I have reviewed this patient and I concur with the Shift Assessment completed by the Licensed Practical Nurse today this shift.
[2020-07-14 03:59] LABS: BASOPHILS 0.1 % (0-2); EOSINOPHILS 0 % (0-7); HEMATOCRIT 42.5 % (42.0-54.0); IMMATURE GRANULOCYTES 0.1 % (0-5); LYMPHOCYTE ABS# 1.08 10x3/uL (1.32-3.57); LYMPHOCYTES 12.6 % (15-50); MCH 27.1 pg (26.0-34.0); MCHC 30.6 g/dL (31.0-37.0); MCV 88.7 fL (80.0-100.0); MONOCYTES 9.2 % (2-11); PLATELET COUNT 213 10x3/uL (130-400); RBC 4.79 10x6/uL (4.20-6.10); RDW 15.9 % (11.5-14.5); WBC 8.6 10x3/uL (4.8-10.8)
[2020-07-14 04:00] VITALS: BP 125/91
[2020-07-14 04:28] LABS: ALBUMIN 3.3 g/dL (3.4-5.0); ALKALINE PHOSPHATASE 81 U/L (30-120); ALT (SGPT) 27 U/L (10-68); BILIRUBIN - TOTAL 0.71 mg/dL (0.2-1.3); CALC OSMOLALITY 288 mosm/kg (275-300); CALCIUM 9.1 mg/dL (8.5-10.1); CHLORIDE - SERUM 104 mmol/L (98-107); CKMB 2.4 U/L (0.0-3.6); CREATINE KINASE 54 UL (21-232); CREATININE - SERUM 1.2 mg/dL (0.6-1.3); GLUCOSE 166 mg/dL (74-106); POTASSIUM - SERUM 3.9 mmol/L (3.5-5.1); PROTEIN - SERUM 6.5 g/dL (6.4-8.2); SODIUM 141 mmol/L (136-145); TROPONIN-I 0.067 ng/mL (0.000-0.060); UREA NITROGEN 25 mg/dL (7-18); eGFR NON AFRICAN AMERICAN 64 mL/min (90-120)
--- NOTE | 2020-07-14 07:13 | NUR ---
RECEIVE SHIFT REPORT. RESTING IN BED WITH EYES CLOSED. NO S/S OF DISTRESS PRESENT. CALL LIGHT IN REACH. WILL CONTINUE POC AND SAFETY PRECAUTIONS.
[2020-07-14 08:00] VITALS: BP 131/97
[2020-07-14 10:17] LABS: CKMB 2.8 U/L (0.0-3.6); CREATINE KINASE 51 UL (21-232); TROPONIN-I 0.058 ng/mL (0.000-0.060)
[2020-07-14 11:00] VITALS: BP 146/102
[2020-07-14 11:39] LABS: CHOL - HDL RATIO 4.8 ratio (2.3-4.9); LDL-HDL RATIO 2.9 ratio (1.5-3.5)
[2020-07-14 13:04] VITALS: BMI 32.6
[2020-07-14 15:00] VITALS: BP 139/89
[2020-07-14 15:01] VITALS: Ht 188 cm; Wt 111.9 kg
[2020-07-14 20:00] VITALS: BP 128/94
--- NOTE | 2020-07-14 22:00 | NUR ---
2L O2 PROVIDED TO PT FOR COMFORT, STATES HE WEARS A CPAP AT HOME. STATES HE "JUST WANTS TO GET SOME SLEEP TONIGHT". DENIES FURTHER NEEDS. CL IN REACH AND DEMONSTRATED.
--- NOTE | 2020-07-14 23:17 | HP ---
PATIENT: AYALA GREENBERG MEDICAL RECORD: [id number] ACCOUNT: [id number] LOCATION:[address] : 55 ADMISSION DATE: 07/13/20 PCP: ERIBERTO ALVES HISTORY AND PHYSICAL EXAMINATION DATE OF ADMISSION: 07/13/2020 CHIEF COMPLAINT: Swelling. HISTORY OF PRESENT ILLNESS: This is a 65-year-old white male who is a member of [employer]. He has schizophrenia. He also has hypertension, diabetes, COPD and a history of cardiomyopathy. He has seen Dr. Domínguez in the past. Last note, I saw was September of last year. He is brought in due to redness and swelling in his hands and his feet that has been going on for over a week. He has gained over 20 pounds in the last few weeks (my notes from the office showed that he weighed 247 on June 15 and was 222 on 05/30/2020). He denies any chest pain, but he has been short of breath "for a while." No fever or chills. In the ER, his initial troponin was negative, but his second troponin went up to 0.074. His proBNP was 2050. CBC was okay. Basic metabolic panel showed a creatinine of 1.4 (it was 1.13 just a couple of months ago). Chest x-ray showed mild CHF. EKG with normal sinus rhythm with nonspecific ST changes. He is admitted for further evaluation. PAST MEDICAL HISTORY: Again schizophrenia, type 2 diabetes, hypertension, hyperlipidemia, COPD, GERD, osteoarthritis, history of elevated PSA. He has had DVT in the past. PAST SURGICAL HISTORY: Tonsillectomy, prostate biopsy, left total knee replacement, aortic valve replacement and bypass surgery. ALLERGIES: TO PENICILLIN. HOME MEDICATIONS: Iron sulfate 325 mg 1 p.o. daily, metformin 500 mg twice a day, Clozaril 25 mg once a day, Protonix 40 mg once a day, metoprolol ER 25 mg once a day, lisinopril 5 mg once a day, aspirin 81 mg once a day, Lasix 40 mg once a day, DuoNeb via nebulizer p.r.n., Singulair 10 mg at bedtime, Mucinex 600 mg twice a day, benztropine 1 mg at bedtime and Haldol Decanoate IM every 4 weeks, he takes ProAir HFA every 4 to 6 hours p.r.n. wheeze and Trelegy 1 puff a day. HABITS: He continues to smoke. Denies alcohol or drug use. SOCIAL HISTORY: He is single and again is part of a [employer], lives in a chcf. FAMILY HISTORY: Shows cancer in his apparent. Hypertension in siblings and children. REVIEW OF SYSTEMS: GENERAL: He has had 20 to 30-pound weight gain over the last couple of months. HEENT: Has sinus and allergy problems. RESPIRATORY: COPD and continues to smoke. CARDIAC: See above history. He has had bypass and a valve replacement and saw Dr. Domínguez last September. GASTROINTESTINAL: He has reflux. HISTORY AND PHYSICAL [id number] AYALA GREENBERG GENITOURINARY: He has had elevated PSA and a negative biopsy for that. MUSCULOSKELETAL: He has had a knee replacement and has a few joint aches and pains. PHYSICAL EXAMINATION: VITAL SIGNS: Temperature 98.1, pulse 96, respirations 16, blood pressure 155/94, O2 sat 97%. GENERAL: He is awake and alert. He does not appear in acute distress. HEENT: Grossly within normal limits. NECK: Supple. No JVD or bruit. HEART: Regular rate and rhythm. LUNGS: Fairly clear. No wheezes. ABDOMEN: Obese, soft, nontender. EXTREMITIES: With 2+ pitting edema. NEUROLOGIC: Grossly intact. LABORATORY AND DIAGNOSTIC DATA: Again, initial troponin less than 0.017, second troponin was 0.074. CK 3.4, CK-MB 3.4. Urinalysis was normal. ProBNP 2051. CBC with a white count of 9300, hemoglobin 12.7, hematocrit 41.2. Basic metabolic panel; sodium 142, potassium 4.1, chloride 104, CO2 29.3, BUN 25, creatinine 1.4, glucose 175, calcium 9.2. Liver functions were all normal. INR 1.26. EKG; normal sinus rhythm, nonspecific ST and T-wave changes. Chest x-ray read as mild CHF. ASSESSMENT: 1. Acute congestive heart failure exacerbation with increased swelling, shortness of breath. 2. Elevated troponin. 3. History of heart disease. 4. History of schizophrenia. 5. History of diabetes, hypertension, chronic obstructive pulmonary disease. PLAN: Cardiology has been consulted. Continue troponin, diurese. We will get echocardiogram. Other tests or procedures as warranted. TRANSINT:[id number] Voice Confirmation ID: [id number] DOCUMENT ID: [id number] EFRAÍN SHABAZZ MD at 2317 CC: [id number] DICTATION DATE: 07/14/2052 [facility] OFFICIAL: 07/14/20 0917 ADM IN [place] [id number] [place] [id number]
[2020-07-15 00:04] VITALS: BP 104/67
[2020-07-15 04:40] VITALS: BP 140/88
[2020-07-15 05:33] LABS: BASOPHILS 0.1 % (0-2); EOSINOPHILS 0 % (0-7); HEMATOCRIT 40.8 % (42.0-54.0); HEMOGLOBIN 12.3 g/dL (13.5-17.5); IMMATURE GRANULOCYTES 0.1 % (0-5); LYMPHOCYTES 13.3 % (15-50); MCH 26.8 pg (26.0-34.0); MCHC 30.1 g/dL (31.0-37.0); MCV 88.9 fL (80.0-100.0); MEAN PLATELET VOLUME 10.9 fL (7.4-10.4); MONOCYTES 8.9 % (2-11); NEUTROPHIL ABS# 5.85 10x3/uL (1.78-5.38); NEUTROPHILS 77.6 % (40-80); PLATELET COUNT 179 10x3/uL (130-400); RBC 4.59 10x6/uL (4.20-6.10); WBC 7.5 10x3/uL (4.8-10.8)
[2020-07-15 05:40] LABS: ALBUMIN 2.8 g/dL (3.4-5.0); ANION GAP 7.8 mmol/L (8-16); BILIRUBIN - TOTAL 0.74 mg/dL (0.2-1.3); CALCIUM 8.6 mg/dL (8.5-10.1); CARBON DIOXIDE 31.7 mmol/L (21.0-32.0); CREATININE - SERUM 1.1 mg/dL (0.6-1.3); MAGNESIUM - SERUM 1.7 mg/dL (1.8-2.4); POTASSIUM - SERUM 3.5 mmol/L (3.5-5.1); PROTEIN - SERUM 5.7 g/dL (6.4-8.2)
--- NOTE | 2020-07-15 07:10 | NUR ---
RECEIVE SHIFT REPORT. CURRENTLY GETTING BREATHING TREATMENT. DENIES ANY NEEDS AT THIS TIME. CONTINUE POC AND SAFETY PRECAUTIONS.
[2020-07-15 08:03] VITALS: BP 136/90
--- NOTE | 2020-07-15 09:32 | NUR ---
PATIENT DOWN TO AUTOMOBILE RENTAL REPRESENTATIVE.
[2020-07-15 12:01] VITALS: BP 123/87
[2020-07-15 15:58] VITALS: BP 131/91
--- NOTE | 2020-07-15 17:14 | OP ---
PATIENT NAME: AYALA GREENBERG MEDICAL RECORD: [id number] :55 LOCATION:D.M2 D.0 ADMISSION DATE:07/13/20 SURGEON: CASE FUENTES MD DATE OF OPERATION: 07/15/2020 PROCEDURE: Left heart catheterization, selective coronary angiography plus aortic root injection plus IFR of the right plus saphenous vein graft to the OM and MORALES to the LAD, right femoral artery approach. CATHETERS: A 5-Thai sheath, 5/4 left and right Alejandro, 5/4 pig. The procedure was well tolerated. The patient was returned to the burkett. Sheath removed. ExoSeal device was placed. FINDINGS: Left ventriculography not performed. Aortic root injection was assessed for bypass graft location as well as aortic root injection to assess any significant aortic insufficiency. This showed a patent saphenous graft to the OM as well as trivial aortic insufficiency. CORONARY ANATOMY: LEFT MAIN: Left main is free of disease. LAD: Fills for appropriate time and is seen filling via competitive flow. CIRCUMFLEX: Has a tight 90% stenosis with some competitive flow distally from the saphenous graft. RIGHT CORONARY ARTERY: Has a questionable stenosis in its proximal portion; however, this is insignificant via IFR wire better than 0.9. MORALES to LAD is widely patent through its course without evidence of post-anastomotic stenosis. SAPHENOUS VEIN GRAFT/CIRCUMFLEX/OM: Widely patent throughout its course without evidence post-anastomotic stenosis. IMPRESSION: Widely patent bypass grafts. 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 TRANSINT:[id number] Voice Confirmation ID: [id number] DOCUMENT ID: [id number] CASE FUENTES MD at 1714 CC: [id number] DICTATION DATE: 07/15/20 1035 ENGINEERING WRITER: 07/15/[address] [facility] [address] [place] [address]
--- NOTE | 2020-07-15 17:14 | EC ---
PATIENT:AYALA GREENBERG DATE OF SERVICE: 07/13/20 SEX: M MEDICAL RECORD: [id number] DATE OF : 55 LOCATION:D.M2 D.212 AGE OF PATIENT: 65 ADMISSION DATE: 07/13/20 REFERRING PHYSICIAN: INTERPRETING PHYSICIAN: CASE FUENTES MD ECHOCARDIOGRAM REPORT ECHO CHARGES 4 ECHO COMPLETE Date: 07/14/20 CLINICAL DIAGNOSIS: ELEVATED PRO BNP, TOPONIN ECHOCARDIOGRAPHIC MEASUREMENTS (adult normal given) AC root (d.<3.7cm) 2.6 cm LV Septum d (<1.2 cm> 1.0 cm Valve Excursion 1.4 cm LV Septum (systole) 1.1 cm Left Atria (s.<4.0cm> 4.8 cm LVPW d(<1.2cm) 1.1 cm RV (d.<2.3cm) 4.1 cm LVPW (sytole) 1.2 cm LV diastole(<5.6CM) 7.0 cm MV E-F(>70mm/sec) cm LV systole 6.2 cm LVOT Diameter 1.7 cm MV exc.(>10mm) 0.8 cm Est.ejection fraction (50-75%) % DOPPLER: LVIT cm/sec A 26 cm/sec E 39 cm/sec LA cm/sec RVSP 46 mmHg LVOT 70 cm/sec AOP1/2T m/s Asc. Ao 264 cm/sec RVOT 65 cm/sec RA cm/sec PA 119 cm/sec AV Gradient Peak 27.9 mmHg AV Mean 15.2 mmHg AV Area 0.7 cm MV Gradient Peak 4.9 mmHg MV Mean 1.4 mmHg MV Area cm COMMENTS: Cartographic Technician: Denise LAKE Parking Regulation Enforcement Officer: 3 Dr. Domínguez TAPE# Pericardial Effusion N DATE OF SERVICE: Adequate 2D, color flow imaging, spectral Doppler, and M-Mode. FINDINGS: No LVH. LV internal dimensions are dilated. LV is globally hypokinetic with reduced EF, estimated EF 40% to 45%. Prosthetic aortic valve was noted with acceptable Doppler velocity. No significant AI. Left atrium is dilated at 4.8 cm. Mitral valve shows no prolapse. Mild MR. Right side is grossly normal. Trace TR. ECHOCARDIOGRAM REPORT [id number] AYALA GREENBERG TRANSINT:[id number] Voice Confirmation ID: [id number] DOCUMENT ID: [id number] CASE FUENTES MD at 1714 CC: [id number] DICTATION DATE: 07/14/201427 BEATING MACHINE OPERATOR: 07/14/20 2242 ADM IN [facility] [address] [place] [id number]
[2020-07-15 20:09] VITALS: BP 134/99
[2020-07-16 01:28] VITALS: BP 112/74
[2020-07-16 05:29] VITALS: BP 129/91
[2020-07-16 05:36] LABS: BASOPHILS 0.1 % (0-2); EOSINOPHILS 0 % (0-7); HEMATOCRIT 40.8 % (42.0-54.0); HEMOGLOBIN 12.3 g/dL (13.5-17.5); IMMATURE GRANULOCYTES 0.1 % (0-5); LYMPHOCYTE ABS# 1.02 10x3/uL (1.32-3.57); LYMPHOCYTES 15.1 % (15-50); MCHC 30.1 g/dL (31.0-37.0); MCV 89.7 fL (80.0-100.0); MEAN PLATELET VOLUME 10.7 fL (7.4-10.4); MONOCYTES 9.5 % (2-11); NEUTROPHIL ABS# 5.08 10x3/uL (1.78-5.38); NEUTROPHILS 75.2 % (40-80); PLATELET COUNT 158 10x3/uL (130-400); RBC 4.55 10x6/uL (4.20-6.10); RDW 15.9 % (11.5-14.5); WBC 6.8 10x3/uL (4.8-10.8)
[2020-07-16 06:12] LABS: ALBUMIN 2.9 g/dL (3.4-5.0); ALKALINE PHOSPHATASE 71 U/L (30-120); ALT (SGPT) 23 U/L (10-68); BILIRUBIN - TOTAL 0.63 mg/dL (0.2-1.3); CALC OSMOLALITY 284 mosm/kg (275-300); CALCIUM 8.7 mg/dL (8.5-10.1); CARBON DIOXIDE 31.3 mmol/L (21.0-32.0); CHLORIDE - SERUM 105 mmol/L (98-107); GLUCOSE 103 mg/dL (74-106); MAGNESIUM - SERUM 1.9 mg/dL (1.8-2.4); POTASSIUM - SERUM 3.9 mmol/L (3.5-5.1); PROTEIN - SERUM 5.5 g/dL (6.4-8.2); SODIUM 142 mmol/L (136-145); UREA NITROGEN 18 mg/dL (7-18); eGFR NON AFRICAN AMERICAN 80 mL/min (90-120)
[2020-07-16 07:34] VITALS: BP 94/68
--- NOTE | 2020-07-16 08:25 | NUR ---
AM MEDS GIVEN AT THIS TIME. PT UP TO CHAIR, EATING BREAKFAST. PT A/O X3, RESP EVEN AND NONLAOBORED ON RA. LT FA IV SL. PT DENIES ANY NEEDS AT THIS TIME. CALL LIGHT IN REACH.
--- NOTE | 2020-07-16 11:46 | NUR ---
NOTIFIED BY PACKING SHED SUPERVISOR THAT PT HAS A 11 BEAT RUN OF VTACH, WENT TO CHECK ON PT PT LAYING ON THE BED ASYMPTOMATIC, HEATER TENDER AT BEDSIDE GETTING HIS VITAL SIGNS.
[2020-07-16 11:47] VITALS: BP 113/88
--- NOTE | 2020-07-16 13:05 | NUR ---
CALLED DR. CONTRERAS TO VERIFY ORDERS FOR DOBUTAMINE DRIP AND BUMEX. PT IS CURRENTLY ON BOTH, PER DR. CONTRERAS D/C DOBUTAMINE DRIP.
[2020-07-16 15:59] VITALS: BP 114/86
--- NOTE | 2020-07-16 16:15 | NUR ---
BLOOD SUGAR OF 95 NO COVERAGE NEEDED PER S/S. PT UP TO CHAIR, DENIES ANY NEEDS AT THIS TIME. CALL LIGHT IN REACH.
[2020-07-16 19:58] VITALS: BP 132/98
[2020-07-17 00:55] VITALS: BP 106/63
[2020-07-17 06:14] VITALS: BP 116/87
[2020-07-17 06:24] LABS: BASOPHILS 0.2 % (0-2); EOSINOPHILS 0 % (0-7); HEMATOCRIT 41.7 % (42.0-54.0); HEMOGLOBIN 12.6 g/dL (13.5-17.5); IMMATURE GRANULOCYTES 0.2 % (0-5); LYMPHOCYTE ABS# 1.08 10x3/uL (1.32-3.57); LYMPHOCYTES 16.7 % (15-50); MCHC 30.2 g/dL (31.0-37.0); MCV 89.5 fL (80.0-100.0); MEAN PLATELET VOLUME 11.1 fL (7.4-10.4); MONOCYTES 9.4 % (2-11); NEUTROPHIL ABS# 4.77 10x3/uL (1.78-5.38); NEUTROPHILS 73.5 % (40-80); PLATELET COUNT 162 10x3/uL (130-400); RBC 4.66 10x6/uL (4.20-6.10); RDW 15.7 % (11.5-14.5); WBC 6.5 10x3/uL (4.8-10.8)
[2020-07-17 07:05] LABS: ALBUMIN 3.1 g/dL (3.4-5.0); ALKALINE PHOSPHATASE 78 U/L (30-120); ALT (SGPT) 24 U/L (10-68); BILIRUBIN - TOTAL 0.68 mg/dL (0.2-1.3); CALC OSMOLALITY 288 mosm/kg (275-300); CALCIUM 9.1 mg/dL (8.5-10.1); CARBON DIOXIDE 31.3 mmol/L (21.0-32.0); CHLORIDE - SERUM 105 mmol/L (98-107); GLUCOSE 104 mg/dL (74-106); SODIUM 144 mmol/L (136-145); UREA NITROGEN 17 mg/dL (7-18); eGFR NON AFRICAN AMERICAN 80 mL/min (90-120)
[2020-07-17 08:02] VITALS: BP 121/89
--- NOTE | 2020-07-17 08:13 | NUR ---
AM MEDS GIVEN AT THIS TIME. PT SITTING UP TO CHAIR, EATING HIS BREAKFAST PT A/O X4, RESP EVEN AND NONLABORED ON RA. LT FA IV SL. PT DENIES ANY NEEDS AT THIS TIME. CALL LIGHT IN REACH.
--- NOTE | 2020-07-17 10:54 | NUR ---
BLOOD SUGAR OF 178, 2 UNITS OF INSULIN GIVEN PER S/S. PT UP TO CHAIR, DENIES ANY NEEDS AT THIS TIME, CALL LIGHT IN REACH.
[2020-07-17 12:35] VITALS: BP 118/80; BP 129/87
--- NOTE | 2020-07-17 15:42 | NUR ---
BLOOD SUGAR OF 148, NO COVERAGE NEEDED PER S/S.
[2020-07-17 16:54] VITALS: BP 133/94
[2020-07-17 22:06] VITALS: BP 126/70
[2020-07-18 06:41] LABS: BASOPHILS 0.2 % (0-2); EOSINOPHILS 0 % (0-7); HEMATOCRIT 39.3 % (42.0-54.0); HEMOGLOBIN 11.8 g/dL (13.5-17.5); IMMATURE GRANULOCYTES 0.3 % (0-5); LYMPHOCYTES 9.5 % (15-50); MCH 26.9 pg (26.0-34.0); MCV 89.5 fL (80.0-100.0); MEAN PLATELET VOLUME 10.7 fL (7.4-10.4); NEUTROPHIL ABS# 5.03 10x3/uL (1.78-5.38); PLATELET COUNT 155 10x3/uL (130-400); RBC 4.39 10x6/uL (4.20-6.10); RDW 15.6 % (11.5-14.5); WBC 6.3 10x3/uL (4.8-10.8)
[2020-07-18 06:52] LABS: ALBUMIN 2.8 g/dL (3.4-5.0); ALKALINE PHOSPHATASE 69 U/L (30-120); ALT (SGPT) 21 U/L (10-68); CALC OSMOLALITY 281 mosm/kg (275-300); CALCIUM 8.9 mg/dL (8.5-10.1); CARBON DIOXIDE 33.8 mmol/L (21.0-32.0); CHLORIDE - SERUM 105 mmol/L (98-107); GLUCOSE 74 mg/dL (74-106); POTASSIUM - SERUM 3.5 mmol/L (3.5-5.1); PROTEIN - SERUM 5.7 g/dL (6.4-8.2); SODIUM 141 mmol/L (136-145); UREA NITROGEN 18 mg/dL (7-18); eGFR NON AFRICAN AMERICAN 80 mL/min (90-120)
[2020-07-18 08:00] VITALS: BP 111/72
--- NOTE | 2020-07-18 08:20 | NUR ---
PT SITTING UP IN CHAIR EATING BREAKFAST. RR EVEN NON LABORED WITH COUGH NOTED OCCASIONALLY. PT AWAKE AND ALERT, AM MEDS GIVEN PER EMAR. NO NEEDS VOICED. CLWR.
--- NOTE | 2020-07-18 10:38 | NUR ---
PT AMBULATING IN ROOM, GAIT STEADY. NO NEEDS VOICED WHEN ASKED. CLWR.
[2020-07-18 12:00] VITALS: BP 118/81
--- NOTE | 2020-07-18 13:15 | NUR ---
Nutrition Follow-up: Eating well. Ate 100% of breakfast this AM. Diet: Cardiac Carb Consistent PO intake: 100% x 7 meals No new wt; last wt: 279# (07/14) Labs noted: Glu 74, Alb 2.8 Meds noted: Bumex, Humalog, electrolyte protocol -RD will follow up within 7 days if pt still admitted.
[2020-07-18 15:00] VITALS: BP 113/76
[2020-07-18 20:00] VITALS: BP 117/73
[2020-07-19 04:00] VITALS: BP 105/69
[2020-07-19 05:24] LABS: BASOPHILS 0.3 % (0-2); EOSINOPHILS 0 % (0-7); HEMATOCRIT 41.7 % (42.0-54.0); HEMOGLOBIN 12.5 g/dL (13.5-17.5); IMMATURE GRANULOCYTES 0.1 % (0-5); LYMPHOCYTE ABS# 1.12 10x3/uL (1.32-3.57); LYMPHOCYTES 16.3 % (15-50); MCH 27.2 pg (26.0-34.0); MCV 90.7 fL (80.0-100.0); MEAN PLATELET VOLUME 10.9 fL (7.4-10.4); NEUTROPHIL ABS# 5.03 10x3/uL (1.78-5.38); NEUTROPHILS 73.3 % (40-80); PLATELET COUNT 159 10x3/uL (130-400); RDW 15.9 % (11.5-14.5); WBC 6.9 10x3/uL (4.8-10.8)
[2020-07-19 05:53] LABS: ALBUMIN 2.9 g/dL (3.4-5.0); ANION GAP 7.6 mmol/L (8-16); BILIRUBIN - TOTAL 0.49 mg/dL (0.2-1.3); CALCIUM 8.8 mg/dL (8.5-10.1); CARBON DIOXIDE 34.4 mmol/L (21.0-32.0); CREATININE - SERUM 1.1 mg/dL (0.6-1.3); MAGNESIUM - SERUM 1.9 mg/dL (1.8-2.4); PROTEIN - SERUM 6.1 g/dL (6.4-8.2)
[2020-07-19 08:57] VITALS: BP 129/83
[2020-07-19 12:38] VITALS: BP 120/80
[2020-07-19 15:42] VITALS: BP 114/84
--- NOTE | 2020-07-19 19:36 | NUR ---
TELEMETRY CALLED. PT HAD A 9 SEC RUN OF V-TACH WITH AT LEAST 20 PVC'S. NOTIFIED JAIME CHILDERS WITH NO N.O'S. STATED " THAT IS NOT UNCOMMON WITH CARDIOMYOPATHY". ASKED PT TO LAY DOWN AND EXPLAINED NO COFFEE TONIGHT. WILL CONT. TO OBSERVE. NOW IN SR WITH V/S'S 97.8, 116/82, 70,20,O2 SAT 97% ON 2 LITERS. HE WAS ASYMPTOMATIC WITH EVENT. WALKING AROUND HIS ROOM.
[2020-07-19 20:00] VITALS: BP 116/82
[2020-07-20 04:00] VITALS: BP 105/70
[2020-07-20 06:47] LABS: BASOPHILS 0.2 % (0-2); EOSINOPHILS 0 % (0-7); HEMATOCRIT 40.3 % (42.0-54.0); HEMOGLOBIN 11.8 g/dL (13.5-17.5); IMMATURE GRANULOCYTES 0.2 % (0-5); LYMPHOCYTES 17.1 % (15-50); MCH 26.6 pg (26.0-34.0); MCHC 29.3 g/dL (31.0-37.0); MEAN PLATELET VOLUME 11.5 fL (7.4-10.4); MONOCYTES 10.7 % (2-11); NEUTROPHIL ABS# 4.62 10x3/uL (1.78-5.38); NEUTROPHILS 71.8 % (40-80); PLATELET COUNT 156 10x3/uL (130-400); RBC 4.43 10x6/uL (4.20-6.10); RDW 15.7 % (11.5-14.5); WBC 6.4 10x3/uL (4.8-10.8)
[2020-07-20 08:04] VITALS: BP 107/75
--- NOTE | 2020-07-20 08:42 | NUR ---
AM MEDS GIVEN AT THIS TIME PER EMAR. PT AMBULATORY BETWEEN BATHROOM AND CHAIR. PT RR EVEN NON LABORED. PT INSTRUCTED REGARDING USING A URINAL SO ACCURATE URINE CAN BE MEASURED IF POSSIBLE. PT STATES UNDERSTANDING. NEW BRIEF GIVEN PER REQUEST. NO FURTHER NEEDS VOICED. CLWR.
[2020-07-20 11:47] VITALS: BP 117/77
--- NOTE | 2020-07-20 20:00 | NUR ---
RECIEVED UP AMBULATING AROUND ROOM. ALERT AND ORIETNED X4. DENIES ANY NEEDS AT THIS TIME.
[2020-07-20 20:45] VITALS: BP 140/91
[2020-07-21 03:28] VITALS: BP 111/75
--- NOTE | 2020-07-21 07:49 | MORECARE ---
CASE MANAGEMENT DISCHARGE SUMMARY PATIENT: AYALA GREENBERG UNIT: [id number] ADM DATE: 07/13/20 AGE: 65 : 55 SEX: M ROOM/BED: D.2120 AUTHOR: PRIMO,DOC PHYSICIAN: REFERRING PHYSICIAN: EFRAÍN SHABAZZ MD DATE OF SERVICE: 07/21/20 Case Management Discharge Planning Summary DCP REVIEW SUMMARY ANTICIPATED D/C DATE: EXPECTED LOS : CASE STATUS: DCP Initiated INITIAL REVIEW: 07/21/2020 INITIAL REVIEWER: Misa Flores FINAL DISCHARGE DISPOSITION: : FINAL REVIEWER: FINAL REVIEW DATE: DCP Focus Questions & Answers QUESTION: ANSWER : PATIENT: AYALA GREENBERG ENCOUNTER: [id number] MEDICAL RECORD#: [id number] ADMISSION DATE: 07/13/2020 DISCHARGE DATE: ATTENDING MD: EFRAÍN ADLER : AGE: 65 MARITAL STATUS: S DC PLAN ID: [id number] FACILITY: [facility] PRINTED ON: 07/21/20 7:49 CT All edits/amendments must be made on the electronic document DICTATION DATE: 07/21/20748 FLOOR BROKER: DM 07/21/20 0749 RPT#: [id number] DC DATE: STATUS: ADM IN [facility] [address] [place] [address] END OF REPORT
--- NOTE | 2020-07-21 08:00 | MORECARE ---
CASE MANAGEMENT DISCHARGE SUMMARY PATIENT: AYALA GREENBERG UNIT: [id number] ADM DATE: 07/13/20 AGE: 65 : 55 SEX: M ROOM/BED: D.2120 AUTHOR: SAMM TILLMAN PHYSICIAN: REFERRING PHYSICIAN: EFRAÍN SAHBAZZ MD DATE OF SERVICE: 07/21/20 Case Management Discharge Planning Summary DCP REVIEW SUMMARY ANTICIPATED D/C DATE: EXPECTED LOS : CASE STATUS: DCP Initiated INITIAL REVIEW: 07/21/2020 INITIAL REVIEWER: Misa Flores FINAL DISCHARGE DISPOSITION: : FINAL REVIEWER: FINAL REVIEW DATE: DCP Focus Questions & Answers DCP Evaluation QUESTION: ANSWER Patient and/or caregiver agree upon recommended discharge plan? : Yes Patient's current cognitive status: : *Oriented to person, place, situation, time and present Patient's ability to cope with chronic illness : d. No chronic illness Patient gives permission to discuss discharge plans with: (name, relationship and number) : Ira Thomas - Nurse at [facility] [phone] Does the patient have the ability to pay for or attain post discharge needs / services? : Yes Family / Caregiver's ability to cope with chronic illness: : a. Adequate (ability to meet patient's medical needs, ensures patient attends medical appts.) Physical Status: : Partial care dependence Physical Status: : Mobility impaired Is there a likelihood that the patient will require additional services to return to the preadmission environment? : No Living Arrangements: : [facility] Partial Dependence, assistance required for: : Ambulation / Mobility Other Equipment comments: : May need oxygen Results of this evaluation have been discussed with: : Patient Patient with capacity for self-care or can be cared for in same environment as prior to hospitalization? : Yes Living arrangements comments: : Small group therapy Baseline cognitive status: : *Oriented to person, place, situation, time and present Physical environment modification needed / anticipated for discharge: : No Medication Management: : Patient states can afford medications Pharmacy name(s): : [facility] Does Patient have transportation to get home and to follow-up medical appointments when discharged from the hospital? : Yes Would patient like to participate in any Care Coordination programs (if applicable): : Not applicable Comments: : States Ira Thomas will arrange transportation Does the patient have electricity at home? : Yes Does the patient have running water in their house? : Yes Equipment in use: : Walker - Rolling Equipment in use: : Cane - Single Leg Psychosocial status: : Adult with physical limitations Resources / Services in place: : None DCP Re-evaluation QUESTION: ANSWER Would patient like to participate in any Care Coordination programs (if applicable): : Not applicable PATIENT: AYALA GREENBERG ENCOUNTER: [id number] MEDICAL RECORD#: [id number] ADMISSION DATE: 07/13/2020 DISCHARGE DATE: ATTENDING MD: EFRAÍN ADLER : AGE: 65 MARITAL STATUS: S DC PLAN ID: [id number] FACILITY: [facility] PRINTED ON: 07/21/20 8:00 CT All edits/amendments must be made on the electronic document DICTATION DATE: 07/21/20799 HUMAN RESOURCES OFFICE ASSISTANT: PAIGE 07/21/20799 RPT#: [id number] DC DATE: STATUS: ADM IN [facility] [address] [place] [address] END OF REPORT
[2020-07-21] MEDS ORDERED: BUMEX2 MG PO (08:23)
[2020-07-21] MEDS ORDERED: ALDACTONE25 MG PO (08:24)
--- NOTE | 2020-07-21 09:27 | MORECARE ---
CASE MANAGEMENT DISCHARGE SUMMARY PATIENT: AYALA GREENBERG UNIT: [id number] ADM DATE: 07/13/20 AGE: 65 : 55 SEX: M ROOM/BED: D.2120 AUTHOR: PRIMO,DOC PHYSICIAN: REFERRING PHYSICIAN: EFRAÍN SHABAZZ MD DATE OF SERVICE: 07/21/20 Case Management Discharge Planning Summary COMMENTS ENTERED DATE: 07/21/20 9:15 CT COMMENT TYPE: Discharge Planning REVIEWER: Misa Thomas with [facility] called me and states she would like to use [employer] as oxygen company and have his medicines called into [facility]. I called [facility] [phone] and spoke with pharmacist, Katie, and called in Aldactone and Bumex as ordered per Dr. Shabazz. I also informed Katie that his Lasix has been discontinued. I called Sven with [employer] and oxygen tank will be delivered, order and clinical faxed to [facility] [place]. IMM explained, signed, given, copy placed in MR. PRATHER to [facility] today. ENTERED DATE: 07/21/20 7:54 CT COMMENT TYPE: Discharge Planning REVIEWER: Misa Flores CM met with patient to discuss discharge planning/needs. He states that Dr. Shabazz said he may go home today. States he lives at [facility] therapy and Ira Thomas will arrange transportation home. States he uses a cane or rolling walker for ambulation. States he may need oxygen at home. I have had a walk test and he is 87% on room air, so I will call Ira Thomas for [employer] for the oxygen. Patient states he has a CPAP, but doesn't know where it comes from and does not have a preference of oxygen companies. States the nurse gives his medications at [facility]. He denies other needs at this time. CM will continue to follow and assist with discharge planning/needs. Ira Thomas - [facility] - [phone] DCP REVIEW SUMMARY ANTICIPATED D/C DATE: EXPECTED LOS : CASE STATUS: DCP Initiated INITIAL REVIEW: 07/21/2020 INITIAL REVIEWER: Misa Flores FINAL DISCHARGE DISPOSITION: : FINAL REVIEWER: FINAL REVIEW DATE: DCP Focus Questions & Answers DCP Evaluation QUESTION: ANSWER Patient and/or caregiver agree upon recommended discharge plan? : Yes Patient's current cognitive status: : *Oriented to person, place, situation, time and present Patient's ability to cope with chronic illness : d. No chronic illness Patient gives permission to discuss discharge plans with: (name, relationship and number) : Ira Thomas - Nurse at [facility] [phone] Does the patient have the ability to pay for or attain post discharge needs / services? : Yes Family / Caregiver's ability to cope with chronic illness: : a. Adequate (ability to meet patient's medical needs, ensures patient attends medical appts.) Physical Status: : Partial care dependence Physical Status: : Mobility impaired Is there a likelihood that the patient will require additional services to return to the preadmission environment? : No Living Arrangements: : Nursing Home Partial Dependence, assistance required for: : Ambulation / Mobility Other Equipment comments: : May need oxygen Results of this evaluation have been discussed with: : Patient Patient with capacity for self-care or can be cared for in same environment as prior to hospitalization? : Yes Living arrangements comments: : Small group therapy Baseline cognitive status: : *Oriented to person, place, situation, time and present Physical environment modification needed / anticipated for discharge: : No Medication Management: : Patient states can afford medications [facility]acy name(s): : [facility] Does Patient have transportation to get home and to follow-up medical appointments when discharged from the hospital? : Yes Would patient like to participate in any Care Coordination programs (if applicable): : Not applicable Comments: : States Ira Thomas will arrange transportation Does the patient have electricity at home? : Yes Does the patient have running water in their house? : Yes Equipment in use: : Walker - Rolling Equipment in use: : Cane - Single Leg Psychosocial status: : Adult with physical limitations Resources / Services in place: : None DCP Re-evaluation QUESTION: ANSWER Would patient like to participate in any Care Coordination programs (if applicable): : Not applicable PATIENT: AYALA GREENBERG ENCOUNTER: [id number] MEDICAL RECORD#: [id number] ADMISSION DATE: 07/13/2020 DISCHARGE DATE: ATTENDING MD: EFRAÍN ADLER : AGE: 65 MARITAL STATUS: S DC PLAN ID: [id number] FACILITY: [facility] PRINTED ON: 07/21/20 9:26 CT All edits/amendments must be made on the electronic document DICTATION DATE: 07/21/20925 ACID FILLER: PAIGE 07/21/20925 RPT#: [id number] DC DATE: STATUS: ADM IN [facility] [address] [place] [address] END OF REPORT
[2020-07-21 09:36] VITALS: BP 102/66
--- NOTE | 2020-07-21 10:14 | NUR ---
TRIED TO CALL RAMIRO WITH [facility] FOR REPORT AND TRANSPORTATION, NO ANSWER SO WILL TRY AGAIN IN FEW MINUTES.
--- NOTE | 2020-07-21 12:45 | NUR ---
PT TRANSPORTED TO ER VIA WHEELCHAIR FOR TRANSPORT BACK TO LONG-TERM. IV OUT, TELEMETRY REMOVED. WAS ABLE TO DRESS SELF. PORTABLE OXYGEN FROM [facility] SENT WITH PT.
--- NOTE | 2020-07-22 19:45 | MORECARE ---
CASE MANAGEMENT DISCHARGE SUMMARY PATIENT: AYALA GREENBERG UNIT: [id number] ADM DATE: 07/13/20 AGE: 65 : 55 SEX: M ROOM/BED: D.2120 AUTHOR: PRIMO,DOC PHYSICIAN: REFERRING PHYSICIAN: EFRAÍN SHABAZZ MD DATE OF SERVICE: 07/22/20 Case Management Discharge Planning Summary COMMENTS ENTERED DATE: 07/21/20 9:15 CT COMMENT TYPE: Discharge Planning REVIEWER: Misa Thomas with [facility] called me and states she would like to use [employer] as oxygen company and have his medicines called into [facility]. I called [facility] [phone] and spoke with pharmacist, Katie, and called in Aldactone and Bumex as ordered per Dr. Shabazz. I also informed Katie that his Lasix has been discontinued. I called Sven with [employer] and oxygen tank will be delivered, order and clinical faxed to [facility]. IMM explained, signed, given, copy placed in MR. PRATHER to [facility] today. ENTERED DATE: 07/21/20 7:54 CT COMMENT TYPE: Discharge Planning REVIEWER: Misa Flores CM met with patient to discuss discharge planning/needs. He states that Dr. Shabazz said he may go home today. States he lives at [facility] therapy and Ira Thomas will arrange transportation home. States he uses a cane or rolling walker for ambulation. States he may need oxygen at home. I have had a walk test and he is 87% on room air, so I will call Ira Thomas for [employer] for the oxygen. Patient states he has a CPAP, but doesn't know where it comes from and does not have a preference of oxygen companies. States the nurse gives his medications at [facility]. He denies other needs at this time. CM will continue to follow and assist with discharge planning/needs. Ira Thomas - [facility] - [phone] DCP REVIEW SUMMARY ANTICIPATED D/C DATE: EXPECTED LOS : CASE STATUS: DCP Initiated INITIAL REVIEW: 07/21/2020 INITIAL REVIEWER: Misa Flores FINAL DISCHARGE DISPOSITION: : FINAL REVIEWER: FINAL REVIEW DATE: DCP Focus Questions & Answers DCP Evaluation QUESTION: ANSWER Patient and/or caregiver agree upon recommended discharge plan? : Yes Patient's current cognitive status: : *Oriented to person, place, situation, time and present Patient's ability to cope with chronic illness : d. No chronic illness Patient gives permission to discuss discharge plans with: (name, relationship and number) : Ira Thomas - Nurse at [facility] [phone] Does the patient have the ability to pay for or attain post discharge needs / services? : Yes Family / Caregiver's ability to cope with chronic illness: : a. Adequate (ability to meet patient's medical needs, ensures patient attends medical appts.) Physical Status: : Mobility impaired Physical Status: : Partial care dependence Is there a likelihood that the patient will require additional services to return to the preadmission environment? : No Living Arrangements: : Intermediate Partial Dependence, assistance required for: : Ambulation / Mobility Other Equipment comments: : May need oxygen Results of this evaluation have been discussed with: : Patient Patient with capacity for self-care or can be cared for in same environment as prior to hospitalization? : Yes Baseline cognitive status: : *Oriented to person, place, situation, time and present Living arrangements comments: : Small group therapy Physical environment modification needed / anticipated for discharge: : No Medication Management: : Patient states can afford medications Pharmacy name([facility]): : [facility] Does Patient have transportation to get home and to follow-up medical appointments when discharged from the hospital? : Yes Comments: : States Ira Thomas will arrange transportation Would patient like to participate in any Care Coordination programs (if applicable): : Not applicable Does the patient have electricity at home? : Yes Does the patient have running water in their house? : Yes Equipment in use: : Cane - Single Leg Equipment in use: : Walker - Rolling Psychosocial status: : Adult with physical limitations Resources / Services in place: : None DCP Re-evaluation QUESTION: ANSWER Would patient like to participate in any Care Coordination programs (if applicable): : Not applicable PATIENT: AYALA GREENBERG ENCOUNTER: [id number] MEDICAL RECORD#: [id number] ADMISSION DATE: 07/13/2020 DISCHARGE DATE: 07/21/2020 ATTENDING MD: EFRAÍN ADLER : AGE: 65 MARITAL STATUS: S DC PLAN ID: [id number] FACILITY: [facility] PRINTED ON: 07/22/20 19:45 CT All edits/amendments must be made on the electronic document DICTATION DATE: 07/22/201944 FINISHING AND SHIPPING SUPERVISOR: PAIGE 07/22/201944 RPT#: [id number] DC DATE:07/21/20 STATUS: DIS IN [facility] [address] [place] [address] END OF REPORT
== END 2020-07-21 12:46 | disposition home or self-care (01) | DRG 287 ==
LOC: D.ER 14:47 → D.M2 16:13
PROVIDERS: Emergency Medicine; Family Medicine; Internal Medicine Interventional Cardiology; ADMIT Family Medicine; ATTEND Family Medicine
PROC: B2181ZZ Fluoroscopy of Left Internal Mammary Bypass Graft using Low Osmolar Contrast (ICD-10-PCS; 2020-07-15)
PROC: B2111ZZ Fluoroscopy of Multiple Coronary Arteries using Low Osmolar Contrast (ICD-10-PCS; 2020-07-15)
PROC: B2151ZZ Fluoroscopy of Left Heart using Low Osmolar Contrast (ICD-10-PCS; 2020-07-15)
PROC: 4A023N7 Measurement of Cardiac Sampling and Pressure, Left Heart, Percutaneous Approach (ICD-10-PCS; 2020-07-15)
PROC: 4A033BC Measurement of Arterial Pressure, Coronary, Percutaneous Approach (ICD-10-PCS; 2020-07-15)
PROC: B2121ZZ Fluoroscopy of Single Coronary Artery Bypass Graft using Low Osmolar Contrast (ICD-10-PCS; principal; 2020-07-15 09:30)
DX: I11.0 Hypertensive heart disease with heart failure (principal); I24.8 Other forms of acute ischemic heart disease; I50.23 Acute on chronic systolic (congestive) heart failure; F20.9 Schizophrenia, unspecified; E11.9 Type 2 diabetes mellitus without complications; J44.9 Chronic obstructive pulmonary disease, unspecified; E78.5 Hyperlipidemia, unspecified; K21.9 Gastro-esophageal reflux disease without esophagitis; I25.10 Atherosclerotic heart disease of native coronary artery without angina pectoris; Z86.718 Personal history of other venous thrombosis and embolism; Z72.0 Tobacco use